=== PATIENT | male | born 1930 | race Caucasian/White ===

== ENCOUNTER 2019-09-28 02:10 | Inpatient (IN) | payer MEDICARE, OTHER ==
[2019-09-28] MEDS ORDERED: Albuterol/Ipratropium 3.0-0.5 MG/3 ML Neb Soln NEB ONE (02:26)
[2019-09-28] MEDS ORDERED: Budesonide 0.5 MG/2 ML Neb Susp NEB ONE (02:26)
--- NOTE | 2019-09-28 02:26 | EDM.PDOC ---
ED HPI GENERAL MEDICAL PROBLEM - General Chief Complaint: Respiratory Problem Stated Complaint: respiratory distress Time Seen by Provider: 09/28/19 02:20 Source of Information: Reports: Patient, EMS, EMS Notes Reviewed (Not available at time of dictation). Denies: Old Records (No [facility] records available) History Limitations: Reports: Other (Severe presbycusis) - History of Present Illness INITIAL COMMENTS - FREE TEXT/NARRATIVE: The patient was brought to the emergency room via ambulance with bean snapper accompaniment for evaluation of a 2 day history of progressive sore throat with increasing nonproductive cough and dyspnea since earlier today. The patient did receive a DuoNeb treatment prior to arrival with O2 sat of 67% on his baseline 4 L/m by nasal cannula prior to transfer to this facility. Saline lock was placed and the patient was transferred with O2 by nonrebreather mass at 15 L/m with O2 sat of 100% at time of arrival to our facility. The patient denies any chest pain/pressure, heart flutter, dizziness, orthostasis, orthopnea, diaphoresis, paresthesias, recent decreased exercise tolerance, or any other anginal-type symptoms. No recent history of abdominal pain, heartburn, nausea, diarrhea, melena, gross hematochezia, or any food intolerance, including fatty foods, etc.. Patient does live in the [facility] no known recent exposure to infection. Onset: Gradual Onset Date: 09/26/19 Duration: Constant, Getting Worse Location: Reports: Other (Sore throat as above). Denies: Head, Face, Neck, Chest, Abdomen, Back, Upper Extremity, Left, Upper Extremity, Right, Radiates to Quality: Reports: Ache Severity: Mild Improves with: Reports: None Worsens with: Reports: None Context: Reports: Other (As above). Denies: Sick Contact, Trauma Associated Symptoms: Reports: Cough, Fever/Chills, Shortness of Breath. Denies : Confusion, Chest Pain, cough w sputum, Diaphoresis, Headaches, Loss of Appetite, Malaise, Nausea/Vomiting, Syncope, Weakness Treatments [place] KNITTER: Reports: Breathing Treatments, IV/IO, Oxygen - Related Data Allergies Allergy/AdvReac Type Severity Reaction Status Date / Time No Known Allergies Allergy Verified 09/28/19 02:17 Home Meds: Home Meds Acetaminophen [Tylenol] 650 mg PO DAILY 09/28/19 [History] Albuterol Sulfate 2.5 mg IH QID PRN 09/28/19 [History] Apixaban [Eliquis] 2.5 mg PO BID 09/28/19 [History] Budesonide/Formoterol Fumarate [Symbicort 160-4.5 Mcg Inhaler] 2 puff INH BID [History] Glucosam/Chond/Collagen/Hyalur [Glucosamine Chondroitin] 1 cap PO BID 09/28/19 [ History] Levothyroxine 25 mcg PO DAILY 09/28/19 [History] Losartan Potassium 50 mg PO DAILY 09/28/19 [History] Omeprazole Magnesium [Prilosec Otc] 20 mg PO DAILY 09/28/19 [History] Potassium Chloride 20 meq PO DAILY 09/28/19 [History] Simvastatin 40 mg PO BEDTIME 09/28/19 [History] Sodium Fluoride [Prevident] 56 gm DT DAILY 09/28/19 [History] Tiotropium Cherry [Spiriva Respimat] 1 cap IH DAILY 09/28/19 [History] Torsemide [Demadex] 20 mg PO BID 09/28/19 [History] Trolamine Salicylate [Arthricream] 1 applic TOP QID 09/28/19 [History] guaiFENesin [Mucinex] 600 mg PO Q12HR 09/28/19 [History] Past Medical History HEENT History: Reports: Hard of Hearing, Impaired Vision, Other (See Below) Other HEENT History: He wears glasses. 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 Cardiovascular History: Reports: Afib, Heart Failure, Heart Murmur, High Cholesterol, Hypertension, Pacemaker Respiratory History: Reports: Bronchitis, Recurrent, COPD, Intubation, Previous , Pneumonia, Recurrent, Other (See Below). 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 Hematologic History: Reports: None - Past Surgical History HEENT Surgical History: Reports: Oral Surgery, Other (See Below) Other HEENT Surgeries/Procedures: Multiple teeth extractions with partial dentures uppers and lowers. Cardiovascular Surgical History: Reports: Pacer - History Comment History Comment: Only limited medical records available from [facility] with patient being a somewhat poor historian secondary to his severe presbycusis, etc. Social & Family History - Family History Family Medical History: Unobtainable - Tobacco Use Smoking Status *Q: Former Smoker Tobacco Use Within Last Twelve Months: Cigarettes Years of Tobacco use: 30 Packs/Tins Daily: 1 Used Tobacco, but Quit: Yes Smoking Cessation Information Provided To Patient: No Second Hand Smoke Exposure: No Second Hand Smoke Education Provided: No - Living Situation & Occupation Living situation: Reports: (2), Extended Care Facility ([facility]) ED ROS GENERAL - Review of Systems Review Of Systems: Comprehensive ROS is negative, except as noted in HPI. ED EXAM, GENERAL - Physical Exam Exam: See Below Exam Limited By: No Limitations General Appearance: Alert, WD/WN, No Apparent Distress, Cachetic Eye Exam: Bilateral Eye: EOMI, Normal Inspection (No nystagmus. Patient wearing glasses), PERRL Ears: Normal External Exam, Normal TMs, Hearing Loss (Moderate to severe bilateral presbycusis with patient not having his hearing aids.) Nose: Normal Mucosa, No Blood, Clear Rhinorrhea Throat/Mouth: Normal Lips, Normal Gums. No: Normal Teeth (Partial dentures uppers and lowers), Normal Oropharynx (Trace erythema in the posterior pharynx with no pinpoint white exudates or peritonsillar abscess.) Head: Atraumatic, Normocephalic. No: Facial Swelling, Facial Tenderness, Sinus Tenderness Neck: Supple, Non-Tender, Full Range of Motion, Carotid Bruit (Mild bilateral carotid bruits versus transmitted heart sounds). No: Lymphadenopathy (L), Lymphadenopathy (R), Thyromegaly Respiratory/Chest: Chest Non-Tender, Decreased Breath Sounds, Rales (Moderate diffuse bilateral), Rhonchi (Occasional bilateral), Wheezing (Occasional bilateral), Accessory Muscle Use (Mild), Retractions (Mild), Prolonged Expiration (Mild). No: Pleural Rub Cardiovascular: Normal Peripheral Pulses, No Gallop, No JVD, No Rub, Tachycardia (Occasional), Systolic Murmur (4/6 DEVIKA of the mitral valve), Irregularly Irregular. No: No Edema (Dependent edema as below), Gallop/S3, Gallop/S4, Friction Rub Peripheral Pulses: 1+: Dorsalis Pedis (L), Dorsalis Pedis (R), 2+: Radial (L), Radial (R) GI/Abdominal: Normal Bowel Sounds, Soft, Non-Tender, No Organomegaly, No Distention, No Abnormal Bruit, No Mass, Pelvis Stable. No: Guarding (Male) Exam: Deferred Rectal (Males) Exam: Deferred Extremities: Normal Range of Motion, Non-Tender, Normal Capillary Refill, Pedal Edema (+1 bilateral pedal/pretibial edema). No: Adama's Sign Neurological: Alert, Oriented, CN II-XII Intact, Normal Cognition, Normal Gait, Normal Reflexes (Negative Babinski's), No Motor/Sensory Deficits Psychiatric: Normal Affect, Normal Mood Skin Exam: Warm, Dry, Intact, Normal Color, No Rash. No: Diaphoretic, Wound/ Incision Lymphatic: No Adenopathy EKG INTERPRETATION EKG Date: 09/28/19 Time: 02:46 Rhythm: A-Fib Rate (Beats/Min): 94 [place]: Normal (Neutral) P-Wave: Variable QRS: Normal (0.09 seconds) ST-T: Normal QT: Prolonged (388/485 ms) DE/PQ Interval: Variable. Extreme poor R-wave progression in the anterior leads. Comparison: NA - No Prior EKG EKG Interpretation Comments: 1. No acute ischemic changes 2. Atrial fibrillation Course - Vital Signs Last Recorded V/S: Last Vital Signs Temp 37.2 C 09/28/19 02:10 Pulse 87 09/28/19 03:07 Resp 23 H 09/28/19 03:07 BP 150/76 H 09/28/19 03:07 Pulse Ox 93 L 09/28/19 03:07 Vital Signs - 24 hr 09/28/19 09/28/19 02:10 03:07 Temperature [ 37.2 C Temporal] Pulse, 108 H 87 Peripheral [ Pulse Oximetry] Respiratory 28 H 23 H Rate Blood Pressure 160/97 H 150/76 H [Right Upper Arm] O2 Sat by Pulse 88 L 93 L Oximetry - Orders/Labs/Meds Orders: Active Orders 24 hr Category Date Time Status Cardiac Monitoring [RC] CONTINUOUS Care 09/28/19 02:26 Active Communication Order [RC] ROUTINE Care 09/28/19 02:26 Active EKG Documentation Completion [RC] ASDIRECTED Care 09/28/19 02:27 Active Oxygen Therapy, ED [RC] CONTINUOUS Care 09/28/19 02:26 Active Peripheral IV Care [RC] . DIRECTED Care 09/28/19 02:27 Active Pulse Oximetry [RC] CONTINUOUS Care 09/28/19 02:26 Active Up With Assistance [RC] ASDIRECTED Care 09/28/19 02:26 Active Nothing Per Oral Diet [DIET] Diet 09/28/19 Breakfast Active Chest 1V Frontal [CR] Stat Exams 09/28/19 02:26 Ordered Chest 2V [CR] Stat Exams 09/28/19 02:26 Ordered CULTURE BLOOD [BC] Stat Lab 09/28/19 02:40 Received CULTURE BLOOD [] Stat Lab 09/28/19 02:40 Received CULTURE SPUTUM + SMEAR [] Urgent Lab 09/28/19 02:26 Ordered CULTURE STREP A CONFIRMATION [] Stat Lab 09/28/19 02:33 Results STREP SCRN A RAPID W CULT CONF [] Stat Lab 09/28/19 02:33 Results Sodium Chloride 0.9% [Saline Flush] Med 09/28/19 02:26 Active 10 ml FLUSH ASDIRECTED PRN Blood Culture x2 Reflex Set [OM.PC] Stat Oth 09/28/19 02:26 Ordered Obtain Past Medical Record [OM.PC] Stat Oth 09/28/19 02:26 Active Peripheral IV Insertion Adult [OM.PC] Stat Oth 09/28/19 02:26 Ordered Resuscitation Status Routine Resus Stat 09/28/19 02:26 Ordered EKG 12 Lead [EK] Stat Ther 09/28/19 02:26 Ordered Medication Orders Sodium Chloride (Saline Flush) 10 ml FLUSH ASDIRECTED PRN PRN Reason: Keep Vein Open Labs: Laboratory Tests 09/28/19 09/28/19 09/28/19 Range/Units 02:44 02:44 02:44 WBC 10.8 H (4.0-10.2) K/uL RBC 3.89 L (4.33-5.41) M/uL Hgb 11.6 L (13.1-16.8) g/dL Hct 37.4 L (39.0-49.0) % MCV 96.1 (84.0-98.0) fL MCH 29.8 (28.2-33.3) pg MCHC 31.0 L (31.7-36.0) g/dL RDW 15.3 H (11.2-14.1) % Plt Count 260 (150-350) K/uL Neut % (Auto) 90.0 H (45.0-80.0) % Lymph % (Auto) 3.0 L (10.0-50.0) % [place] % (Auto) 6.6 (2.0-14.0) % Eos % (Auto) 0.3 (0.0-5.0) % Baso % (Auto) 0.1 (0.0-2.0) % Neut # (Auto) 9.75 H (1.40-7.00) K/uL Lymph # (Auto) 0.32 L (0.50-3.50) K/uL [place] # (Auto) 0.72 (0.00-1.00) K/uL Eos # (Auto) 0.03 (0.00-0.50) K/uL Baso # (Auto) 0.01 (0.00-0.20) K/uL PT 12.9 H (9.5-12.0) SEC INR 1.2 APTT 30.4 (21.0-31.3) SEC D-Dimer, Quantitative (0-400) ng/mL Sodium 139 (136-145) mmol/L Potassium 3.9 (3.5-5.1) mmol/L Chloride 98 (98-107) mmol/L Carbon Dioxide 33.8 H (21.0-32.0) mmol/L BUN 17 (7-18) mg/dL Creatinine 1.03 (0.51-1.17) mg/dL Est Cr Clr Drug Dosing TNP Estimated GFR (MDRD) > 60 mL/min Glucose 167 H (74-106) mg/dL Lactic Acid (0.4-2.0) mmol/L Calcium 9.8 (8.5-10.1) mg/dL Magnesium 1.7 L (1.8-2.4) mg/dL Total Bilirubin 0.7 (0.2-1.0) mg/dL AST 32 (15-37) U/L ALT 39 (12-78) U/L Alkaline Phosphatase 173 H (46-116) IU/L Creatine Kinase 37 (26-308) U/L Creatine Kinase Index 4.6 H (0.0-2.5) % CK-MB (CK-2) 1.70 (0.00-3.60) ng/mL Troponin I 0.045 (0.000-0.056) ng/mL NT-Pro-B Natriuret Pep 32847 H (0-125) pg/mL Total Protein 8.0 (6.4-8.2) g/dL Albumin 3.2 L (3.4-5.0) g/dL TSH, Ultra Sensitive 6.956 H (0.358-3.740) mIU/mL 09/28/19 09/28/19 Range/Units 02:44 02:44 WBC (4.0-10.2) K/uL RBC (4.33-5.41) M/uL Hgb (13.1-16.8) g/dL Hct (39.0-49.0) % MCV (84.0-98.0) fL MCH (28.2-33.3) pg MCHC (31.7-36.0) g/dL RDW (11.2-14.1) % Plt Count (150-350) K/uL Neut % (Auto) (45.0-80.0) % Lymph % (Auto) (10.0-50.0) % [place] % (Auto) (2.0-14.0) % Eos % (Auto) (0.0-5.0) % Baso % (Auto) (0.0-2.0) % Neut # (Auto) (1.40-7.00) K/uL Lymph # (Auto) (0.50-3.50) K/uL [place] # (Auto) (0.00-1.00) K/uL Eos # (Auto) (0.00-0.50) K/uL Baso # (Auto) (0.00-0.20) K/uL PT (9.5-12.0) SEC INR APTT (21.0-31.3) SEC D-Dimer, Quantitative 1330 H (0-400) ng/mL Sodium (136-145) mmol/L Potassium (3.5-5.1) mmol/L Chloride (98-107) mmol/L Carbon Dioxide (21.0-32.0) mmol/L BUN (7-18) mg/dL Creatinine (0.51-1.17) mg/dL Est Cr Clr Drug Dosing Estimated GFR (MDRD) mL/min Glucose (74-106) mg/dL Lactic Acid 1.2 (0.4-2.0) mmol/L Calcium (8.5-10.1) mg/dL Magnesium (1.8-2.4) mg/dL Total Bilirubin (0.2-1.0) mg/dL AST (15-37) U/L ALT (12-78) U/L Alkaline Phosphatase (46-116) IU/L Creatine Kinase (26-308) U/L Creatine Kinase Index (0.0-2.5) % CK-MB (CK-2) (0.00-3.60) ng/mL Troponin I (0.000-0.056) ng/mL NT-Pro-B Natriuret Pep (0-125) pg/mL Total Protein (6.4-8.2) g/dL Albumin (3.4-5.0) g/dL TSH, Ultra Sensitive (0.358-3.740) mIU/mL Blood cultures 2 were collected Microbiology 09/28/19 02:33 Group A Streptococcus Rapid Screen - Final Throat NEGATIVE STREP A SCREEN REFERENCE RANGE: NEGATIVE 09/28/19 02:33 Influenza Type A Antigen Screen - Final Nasal, Left NEGATIVE INFLUENZA A VIRUS AG REFERENCE RANGE: NEGATIVE Influenza Type B Antigen Screen - Final NEGATIVE INFLUENZA B VIRUS AG REFERENCE RANGE: NEGATIVE Meds: Medications Generic Name Dose Route Start Last Admin Trade Name Freq PRN Reason Stop Dose Admin Sodium Chloride 10 ml 09/28/19 02:26 Saline Flush FLUSH ASDIRECTED PRN Keep Vein Open Discontinued Medications Generic Name Dose Route Start Last Admin Trade Name Freq PRN Reason Stop Dose Admin Albuterol/Ipratropium 3 ml 09/28/19 02:26 09/28/19 03:13 Duoneb 3.0-0.5 Mg/3 Ml NEB 09/28/19 02:27 Not Given ONETIME ONE Budesonide 0.5 mg 09/28/19 02:26 09/28/19 02:33 Pulmicort NEB 09/28/19 02:27 0.5 mg ONETIME ONE Administration Ceftriaxone Sodium 1 gm/ 100 mls @ 200 mls/hr 09/28/19 03:24 09/28/19 03:54 Sodium Chloride IV 09/28/19 03:53 200 mls/hr ONETIME ONE Administration - Radiology Interpretation Free Text/Narrative:: Pantograph I Engraver shows atrial fibrillation with occasional tachycardia in the low 100s with average heart rate in the 80s to 90s with occasional multiform PVCs and couplets. Chest x-ray, portable, shows a wedge-shaped inferior lateral right upper lobe consolidation with additional moderate bilateral diffuse pulmonary infiltrates particularly in the left upper lobe. Additional evidence of moderate CHF including mild to moderate left pleural effusion. Mild cardiomegaly with mild to moderate aortic valve calcification. Moderate COPD and pulmonary fibrotic changes with additional status post pacemaker placement. Departure - Departure Time of Disposition: 04:05 Disposition: DC/Tfer to [facility] ([facility]3] Hospital 02 Condition: Fair Clinical Impression: Pneumonia, COPD (chronic obstructive pulmonary disease), Atrial fibrillation, PVCs (premature ventricular contractions), Osteoarthritis, Hypomagnesemia, Anemia, Hypoalbuminemia, Peptic reflux disease, Renal insufficiency, Hyperlipidemia, Hypertension, Need for comfort care, CHF (congestive heart failure), Heart murmur, D-dimer, elevated, Hypothyroidism (acquired) - Discharge Information *PRESCRIPTION DRUG MONITORING PROGRAM REVIEWED*: Not Applicable *COPY OF PRESCRIPTION DRUG MONITORING REPORT IN PATIENT SOPHIA: Not Applicable Sepsis Event Note - Evaluation Sepsis Screening Result: Possible Sepsis Risk - Focused Exam Vital Signs: Vital Signs Temp Pulse Resp BP Pulse Ox 09/28/19 03:07 87 23 H 150/76 H 93 L 09/28/19 02:10 37.2 C 108 H 28 H 160/97 H 88 L Date Exam was Performed: 09/28/19 Time Exam was Performed: 03:58 - Problem List & Annotations (1) CHF (congestive heart failure) SNOMED Code(s): 69517411 Code(s): I50.9 - HEART FAILURE, UNSPECIFIED Status: Chronic Priority: High Current Visit: Yes Annotation/Comment:: Moderate CHF with left pleural effusion by chest x-ray as above. Severely elevated BNP with moderate secondary change in troponin I, which is still normal. EKG and cardiac enzymes are otherwise normal. Note d-dimer elevation as below. Initiate aggressive IV Lasix therapy with caution secondary to his renal insufficiency as below. Initiate standard rule out DE orders as below. Qualifiers: Heart failure type: unspecified Heart failure chronicity: acute on chronic Qualified Code(s): I50.9 - Heart failure, unspecified (2) Pneumonia SNOMED Code(s): 837559576 Code(s): J18.9 - PNEUMONIA, UNSPECIFIED ORGANISM Status: Acute Priority: High Current Visit: Yes Onset Date: 09/28/19 Annotation/Comment:: IV Rocephin therapy initiated in the emergency room with additional IV Zithromax after admission. Blood Cultures 2 were collected. Attempt to obtain a sputum specimen [id number]. Lactic acid was normal with no clinical evidence of sepsis. Qualifiers: Pneumonia type: due to unspecified organism Laterality: bilateral Lung location: unspecified part of lung Qualified Code(s): J18.9 - Pneumonia, unspecified organism (3) D-dimer, elevated SNOMED Code(s): 744252305 Code(s): R79.89 - OTHER SPECIFIED ABNORMAL FINDINGS OF BLOOD CHEMISTRY Status: Acute Priority: High Current Visit: Yes Onset Date: 09/28/19 Annotation/Comment:: No direct clinical evidence of a DVT or PE. CTA of the chest using PE protocol will be conducted shortly after admission. Venous Doppler studies to be conducted on 09/29. Note current Eliquis therapy. (4) Need for comfort care SNOMED Code(s): 529527169, 639573889 Code(s): UBX9987 - Status: Chronic Priority: High Current Visit: Yes Annotation/Comment:: Comfort/palliative care confirmed with the patient and [facility] records. Long-term prognosis is poor. (5) COPD (chronic obstructive pulmonary disease) SNOMED Code(s): 88350994 Code(s): J44.9 - CHRONIC OBSTRUCTIVE PULMONARY DISEASE, UNSPECIFIED Status : Chronic Priority: Medium Current Visit: Yes Annotation/Comment:: O2 dependent COPD, although the patient is only receiving his oxygen on a 3 times a day basis? Patient was successfully titrated down to 4 L/m via nasal cannula in the emergency room with improved O2 sats of 96% prior to admission. Continue aggressive nebulizer treatments with additional Pulmicort nebulizer treatment given in the emergency room. Qualifiers: COPD type: COPD with acute lower respiratory infection Qualified Code(s): J44.0 - Chronic obstructive pulmonary disease with (acute) lower respiratory infection (6) Atrial fibrillation SNOMED Code(s): 20282934 Code(s): I48.91 - UNSPECIFIED ATRIAL FIBRILLATION Status: Chronic Priority: High Current Visit: Yes Annotation/Comment:: Currently treated with Eliquis. Note intermittent tachycardia possibly secondary to recent DuoNeb nebulizer treatment prior to patient's transfer to this facility. Current CHF with no chest pain or anginal type symptoms. Initiate standard rule out DE orders. Note comfort care. Cardiology consultation depending on his clinical course. Qualifiers: Atrial fibrillation type: longstanding persistent Qualified Code(s): I48.11 - Longstanding persistent atrial fibrillation (7) Anemia SNOMED Code(s): 611027001 Code(s): D64.9 - ANEMIA, UNSPECIFIED Status: Acute Priority: Medium Current Visit: Yes Onset Date: 09/28/19 Annotation/Comment:: Iron studies and vitamin B 12 level to be conducted on 09/29. Qualifiers: Anemia type: unspecified type Qualified Code(s): D64.9 - Anemia, unspecified (8) Hyperlipidemia SNOMED Code(s): 72128698 Code(s): E78.5 - HYPERLIPIDEMIA, UNSPECIFIED Status: Chronic Priority: Medium Current Visit: Yes Annotation/Comment:: Currently under therapy. Glycosylated hemoglobin and lipid panel with next set of cardiac enzymes with mildly elevated random blood glucose on admission. Qualifiers: Hyperlipidemia type: unspecified Qualified Code(s): E78.5 - Hyperlipidemia , unspecified (9) Hypertension SNOMED Code(s): 86843517 Code(s): I10 - ESSENTIAL (PRIMARY) HYPERTENSION Status: Chronic Priority : High Current Visit: Yes Annotation/Comment:: Blood pressure somewhat elevated in the emergency room. Continue medication adjustments during this hospitalization. Qualifiers: Hypertension type: essential hypertension Qualified Code(s): I10 - Essential (primary) hypertension (10) Hypoalbuminemia SNOMED Code(s): 055773562 Code(s): E88.09 - OTH DISORDERS OF PLASMA-PROTEIN METABOLISM, NEC Status: Chronic Priority: Medium Current Visit: Yes Annotation/Comment:: Note cachexia likely secondary to his COPD. Initiate high-protein Glucerna supplements left Diet is initiated. (11) Hypomagnesemia SNOMED Code(s): 539002600 Code(s): E83.42 - HYPOMAGNESEMIA Status: Acute Priority: Medium Current Visit: Yes Onset Date: 09/28/19 Annotation/Comment:: Initiate magnesium oxide therapy after admission. (12) Osteoarthritis SNOMED Code(s): 154739315 Code(s): M19.90 - UNSPECIFIED OSTEOARTHRITIS, UNSPECIFIED SITE Status: Chronic Priority: Medium Current Visit: Yes Annotation/Comment:: Stable by history Qualifiers: Osteoarthritis location: multiple joints Osteoarthritis type: primary Qualified Code(s): M15.0 - Primary generalized (osteo)arthritis (13) PVCs (premature ventricular contractions) SNOMED Code(s): 74304813 Code(s): I49.3 - VENTRICULAR PREMATURE DEPOLARIZATION Status: Acute Priority: Medium Current Visit: Yes Onset Date: 09/28/19 Annotation/ Comment:: Nonsymptomatic. Note current pacemaker. (14) Peptic reflux disease SNOMED Code(s): 761298238 Code(s): K21.9 - GASTRO-ESOPHAGEAL REFLUX DISEASE WITHOUT ESOPHAGITIS Status: Chronic Priority: Medium Current Visit: Yes Annotation/Comment:: Stable by history under current Prilosec therapy. (15) Renal insufficiency SNOMED Code(s): 432524440, 032300460 Code(s): N28.9 - DISORDER OF KIDNEY AND URETER, UNSPECIFIED Status: Chronic Priority: Medium Current Visit: Yes Annotation/Comment:: BUN and creatinine were normal with history of stage III renal insufficiency per [facility] records. (16) Heart murmur SNOMED Code(s): 21804653 Code(s): R01.1 - CARDIAC MURMUR, UNSPECIFIED Status: Chronic Priority: High Current Visit: Yes Annotation/Comment:: Severe mitral valve insufficiency based on clinical exam today. Note NO CODE STATUS with echocardiogram not to be performed. (17) Hypothyroidism (acquired) SNOMED Code(s): 099228538 Code(s): E03.9 - HYPOTHYROIDISM, UNSPECIFIED Status: Chronic Priority: Medium Current Visit: Yes Annotation/Comment:: TSH somewhat elevated. Increase Synthroid supplementation especially in light of newly initiated magnesium oxide therapy. TSH should be repeated in about 4 weeks. - Problem List Review Problem List Initiated/Reviewed/Updated: Yes - My Orders Last 24 Hours: My Active Orders 09/28/19 02:26 Cardiac Monitoring [RC] CONTINUOUS Communication Order [RC] ROUTINE Oxygen Therapy, ED [RC] CONTINUOUS Pulse Oximetry [RC] CONTINUOUS Up With Assistance [RC] ASDIRECTED Chest 1V Frontal [CR] Stat Chest 2V [CR] Stat CULTURE SPUTUM + SMEAR [RM] Urgent Sodium Chloride 0.9% [Saline Flush] 10 ml FLUSH ASDIRECTED PRN Blood Culture x2 Reflex Set [OM.PC] Stat Obtain Past Medical Record [OM.PC] Stat Peripheral IV Insertion Adult [OM.PC] Stat Resuscitation Status Routine EKG 12 Lead [EK] Stat 09/28/19 02:27 EKG Documentation Completion [RC] ASDIRECTED Peripheral IV Care [RC] . DIRECTED 09/28/19 02:33 CULTURE STREP A CONFIRMATION [RM] Stat STREP SCRN A RAPID W CULT CONF [RM] Stat 09/28/19 02:40 CULTURE BLOOD [BC] Stat CULTURE BLOOD [BC] Stat 09/28/19 Breakfast Nothing Per Oral Diet [DIET] - Assessment/Plan Admission H&P: Please use this note as an admission H&P Last 24 Hours: My Active Orders 09/28/19 02:26 Cardiac Monitoring [RC] CONTINUOUS Communication Order [RC] ROUTINE Oxygen Therapy, ED [RC] CONTINUOUS Pulse Oximetry [RC] CONTINUOUS Up With Assistance [RC] ASDIRECTED Chest 1V Frontal [CR] Stat Chest 2V [CR] Stat CULTURE SPUTUM + SMEAR [RM] Urgent Sodium Chloride 0.9% [Saline Flush] 10 ml FLUSH ASDIRECTED PRN Blood Culture x2 Reflex Set [OM.PC] Stat Obtain Past Medical Record [OM.PC] Stat Peripheral IV Insertion Adult [OM.PC] Stat Resuscitation Status Routine EKG 12 Lead [EK] Stat 09/28/19 02:27 EKG Documentation Completion [RC] ASDIRECTED Peripheral IV Care [RC] . DIRECTED 09/28/19 02:33 CULTURE STREP A CONFIRMATION [RM] Stat STREP SCRN A RAPID W CULT CONF [RM] Stat 09/28/19 02:40 CULTURE BLOOD [BC] Stat CULTURE BLOOD [BC] Stat 09/28/19 Breakfast Nothing Per Oral Diet [DIET] Assessment:: As above Plan: As above. Extensive precautions were given to the patient, who is in agreement with the treatment plan. The patient will require about 3-4 days of inpatient/ acute care secondary to multiple health problems as above. Long-term prognosis is poor.
[2019-09-28 03:18] LABS: CHLORIDE,CL 98 mmol/L (98-107); SODIUM,NA 139 mmol/L (136-145)
[2019-09-28] MEDS ORDERED: cefTRIAXone 1 GM in Sodium Chloride 0.9% 100 ML IV ONE (03:24)
[2019-09-28] MEDS: Sodium Chloride 0.9% 10 ML Syringe FLUSH PRN ×4 (04:12→17:03)
[2019-09-28] MEDS: Levofloxacin/Dextrose 5%-Water 500 MG in Premix Bag 1 BAG IV SCH (06:01)
[2019-09-28] MEDS: Sodium Chloride 0.9% 10 ML Syringe FLUSH SCH ×2 (06:02→17:04)
[2019-09-28] MEDS: Furosemide 40 MG/4 ML VIAL IVPUSH SCH ×3 (06:02→20:06)
[2019-09-28] MEDS: Apixaban 2.5 MG Tab PO SCH ×2 (08:01→17:04)
[2019-09-28] MEDS: Potassium Chloride 20 MEQ Tab.ER PO SCH ×3 (08:01→17:04)
[2019-09-28] MEDS: Dextromethorphan/guaiFENesin 600-30 MG Tab.ER PO SCH ×2 (08:01→17:04)
[2019-09-28] MEDS: Losartan 50 MG Tab PO SCH (08:02)
[2019-09-28] MEDS: Albuterol/Ipratropium 3.0-0.5 MG/3 ML Neb Soln NEB SCH ×3 (08:03→20:06)
[2019-09-28] MEDS: Acetaminophen 325 MG Tab PO SCH (08:03)
[2019-09-28] MEDS: Tiotropium Inhaler 18 MCG Inhalation Powder Cap Kit of 5 INH SCH (08:03)
[2019-09-28] MEDS: Trolamine Salicylate/Aloe Vera 10% Crm 85 GM Tube TOP SCH ×4 (08:05→20:08)
[2019-09-28] MEDS: Levothyroxine 50 MCG Tab PO SCH (08:08)
[2019-09-28] MEDS: Omeprazole 20 MG Cap.CR PO SCH (08:08)
[2019-09-28] MEDS ORDERED: Iopamidol 755 Mg/ML 100 ML Bottle IVPUSH ONE (08:42)
[2019-09-28 10:08] LABS: HEMOGLOBIN A1C 6.3 % (4.3-5.7)
[2019-09-28] MEDS: Nitroglycerin 2% Oint 1 GM UD Packet TOP SCH ×3 (11:03→22:43)
[2019-09-28] MEDS: Albuterol/Ipratropium 3.0-0.5 MG/3 ML Neb Soln NEB PRN (11:08)
[2019-09-28] MEDS: cefTRIAXone 1 GM in Sodium Chloride 0.9% 100 ML IV SCH (17:02)
[2019-09-28] MEDS: Magnesium Oxide 400 MG Tab PO SCH (17:04)
[2019-09-28] MEDS: Budesonide 0.5 MG/2 ML Neb Susp NEB SCH (20:06)
[2019-09-28] MEDS: Simvastatin 20 MG Tab PO SCH (20:06)
[2019-09-29] MEDS: Albuterol/Ipratropium 3.0-0.5 MG/3 ML Neb Soln NEB SCH ×4 (01:49→20:23)
[2019-09-29] MEDS: Levofloxacin/Dextrose 5%-Water 500 MG in Premix Bag 1 BAG IV SCH (04:57)
[2019-09-29] MEDS: cefTRIAXone 1 GM in Sodium Chloride 0.9% 100 ML IV SCH ×2 (04:58→15:52)
[2019-09-29] MEDS: Nitroglycerin 2% Oint 1 GM UD Packet TOP SCH ×3 (04:58→15:53)
[2019-09-29] MEDS: Furosemide 40 MG/4 ML VIAL IVPUSH SCH ×2 (04:58→12:31)
[2019-09-29] MEDS: Sodium Chloride 0.9% 10 ML Syringe FLUSH SCH ×3 (04:59→20:20)
[2019-09-29] MEDS: Albuterol 0.083% 2.5 MG/3 ML Neb Soln NEB PRN ×4 (06:39→23:05)
[2019-09-29] MEDS: Dextromethorphan/guaiFENesin 600-30 MG Tab.ER PO SCH ×2 (08:02→17:35)
[2019-09-29] MEDS: Potassium Chloride 20 MEQ Tab.ER PO SCH ×3 (08:02→17:34)
[2019-09-29] MEDS: Apixaban 2.5 MG Tab PO SCH ×2 (08:03→17:35)
[2019-09-29] MEDS: Omeprazole 20 MG Cap.CR PO SCH (08:03)
[2019-09-29] MEDS: Levothyroxine 50 MCG Tab PO SCH (08:03)
[2019-09-29] MEDS: Losartan 50 MG Tab PO SCH (08:03)
[2019-09-29] MEDS: Acetaminophen 325 MG Tab PO SCH (08:04)
[2019-09-29] MEDS: Trolamine Salicylate/Aloe Vera 10% Crm 85 GM Tube TOP SCH ×5 (08:08→20:20)
[2019-09-29] MEDS: Tiotropium Inhaler 18 MCG Inhalation Powder Cap Kit of 5 INH SCH (08:08)
[2019-09-29] MEDS: Budesonide 0.5 MG/2 ML Neb Susp NEB SCH ×2 (08:09→20:19)
[2019-09-29 08:45] LABS: CHLORIDE,CL 97 mmol/L (98-107); SODIUM,NA 138 mmol/L (136-145)
[2019-09-29] MEDS: Magnesium Oxide 400 MG Tab PO SCH (17:35)
--- NOTE | 2019-09-29 18:29 | PCM.PN ---
- General Info Date of Service: 09/29/19 Admission Dx/Problem (Free Text): Pneumonia Subjective Update: Feels better - Review of Systems Pulmonary: Reports: Shortness of Breath, Cough Cardiovascular: Reports: No Symptoms Gastrointestinal: Reports: No Symptoms Musculoskeletal: Reports: No Symptoms - Patient Data Vitals - Most Recent: Last Vital Signs Temp 37.1 C 09/29/19 16:00 Pulse 65 09/29/19 16:00 Resp 19 09/29/19 16:00 BP 128/62 09/29/19 16:00 Pulse Ox 92 L 09/29/19 16:00 Weight - Most Recent: 60.419 kg I&O - Last 24 Hours: Intake & Output 09/29/19 09/29/19 09/29/19 02:59 10:59 18:59 Intake Total 150 1110 700 Output Total 550 2100 900 Balance -400 -990 -200 Lab Results Last 24 Hours: Laboratory Results - last 24 hr 09/29/19 09/29/19 09/29/19 Range/Units 07:49 07:49 07:49 WBC 8.0 (4.0-10.2) K/uL RBC 3.69 L (4.33-5.41) M/uL Hgb 11.1 L (13.1-16.8) g/dL Hct 35.7 L (39.0-49.0) % MCV 96.7 (84.0-98.0) fL MCH 30.1 (28.2-33.3) pg MCHC 31.1 L (31.7-36.0) g/dL RDW 15.3 H (11.2-14.1) % Plt Count 256 (150-350) K/uL Neut % (Auto) 80.5 H (45.0-80.0) % Lymph % (Auto) 6.7 L (10.0-50.0) % Cassia % (Auto) 10.2 (2.0-14.0) % Eos % (Auto) 2.4 (0.0-5.0) % Baso % (Auto) 0.2 (0.0-2.0) % Neut # (Auto) 6.47 (1.40-7.00) K/uL Lymph # (Auto) 0.54 (0.50-3.50) K/uL Cassia # (Auto) 0.82 (0.00-1.00) K/uL Eos # (Auto) 0.19 (0.00-0.50) K/uL Baso # (Auto) 0.02 (0.00-0.20) K/uL D-Dimer, Quantitative 1420 H (0-400) ng/mL Sodium 138 (136-145) mmol/L Potassium 3.9 (3.5-5.1) mmol/L Chloride 97 L (98-107) mmol/L Carbon Dioxide 36.9 H (21.0-32.0) mmol/L BUN 17 (7-18) mg/dL Creatinine 1.07 (0.51-1.17) mg/dL Est Cr Clr Drug Dosing 40.78 mL/min Estimated GFR (MDRD) > 60 mL/min Glucose 100 (74-106) mg/dL Calcium 9.4 (8.5-10.1) mg/dL Iron (50-175) ug/dL TIBC (250-450) ug/dL % Saturation Ferritin (8-388) ng/mL Total Bilirubin 0.4 (0.2-1.0) mg/dL AST 19 (15-37) U/L ALT 30 (12-78) U/L Alkaline Phosphatase 143 H (46-116) IU/L Creatine Kinase 38 (26-308) U/L Creatine Kinase Index 6.6 H (0.0-2.5) % CK-MB (CK-2) 2.50 (0.00-3.60) ng/mL Troponin I 0.055 (0.000-0.056) ng/mL NT-Pro-B Natriuret Pep 56764 H (0-125) pg/mL Total Protein 7.6 (6.4-8.2) g/dL Albumin 2.9 L (3.4-5.0) g/dL Vitamin B12 475 (193-986) pg/mL 09/29/19 Range/Units 07:49 WBC (4.0-10.2) K/uL RBC (4.33-5.41) M/uL Hgb (13.1-16.8) g/dL Hct (39.0-49.0) % MCV (84.0-98.0) fL MCH (28.2-33.3) pg MCHC (31.7-36.0) g/dL RDW (11.2-14.1) % Plt Count (150-350) K/uL Neut % (Auto) (45.0-80.0) % Lymph % (Auto) (10.0-50.0) % Cassia % (Auto) (2.0-14.0) % Eos % (Auto) (0.0-5.0) % Baso % (Auto) (0.0-2.0) % Neut # (Auto) (1.40-7.00) K/uL Lymph # (Auto) (0.50-3.50) K/uL Cassia # (Auto) (0.00-1.00) K/uL Eos # (Auto) (0.00-0.50) K/uL Baso # (Auto) (0.00-0.20) K/uL D-Dimer, Quantitative (0-400) ng/mL Sodium (136-145) mmol/L Potassium (3.5-5.1) mmol/L Chloride (98-107) mmol/L Carbon Dioxide (21.0-32.0) mmol/L BUN (7-18) mg/dL Creatinine (0.51-1.17) mg/dL Est Cr Clr Drug Dosing mL/min Estimated GFR (MDRD) mL/min Glucose (74-106) mg/dL Calcium (8.5-10.1) mg/dL Iron 33 L (50-175) ug/dL TIBC 350 (250-450) ug/dL % Saturation [id number] Ferritin 82 (8-388) ng/mL Total Bilirubin (0.2-1.0) mg/dL AST (15-37) U/L ALT (12-78) U/L Alkaline Phosphatase (46-116) IU/L Creatine Kinase (26-308) U/L Creatine Kinase Index (0.0-2.5) % CK-MB (CK-2) (0.00-3.60) ng/mL Troponin I (0.000-0.056) ng/mL NT-Pro-B Natriuret Pep (0-125) pg/mL Total Protein (6.4-8.2) g/dL Albumin (3.4-5.0) g/dL Vitamin B12 (193-986) pg/mL Stone Results Last 24 Hours: Microbiology 09/28/19 06:10 Gram Stain - Final Sputum - Expectorated Sputum Culture - Preliminary Yeast Isolated 09/28/19 02:33 Quick Strep Confirmation Culture - Final Throat NO GROUP A STREP ISOLATED REFERENCE RANGE: NEGATIVE Group A Streptococcus Rapid Screen - Final NEGATIVE STREP A SCREEN REFERENCE RANGE: NEGATIVE 09/28/19 02:40 Aerobic Blood Culture - Preliminary Blood - Venous - Lab Draw NO GROWTH AFTER 1 DAY Anaerobic Blood Culture - Preliminary NO GROWTH AFTER 1 DAY 09/28/19 02:40 Aerobic Blood Culture - Preliminary Blood - Venous NO GROWTH AFTER 1 DAY Anaerobic Blood Culture - Preliminary NO GROWTH AFTER 1 DAY Med Orders - Current: Current Medications Acetaminophen (Tylenol) 650 mg PO DAILY [facility] Last Admin: 09/29/19 08:04 Dose: 650 mg Acetaminophen (Tylenol) 650 mg PO Q4H PRN PRN Reason: Pain/Fever Albuterol (Proventil Neb Soln) 2.5 mg NEB Q2H PRN PRN Reason: Dyspnea Last Admin: 09/29/19 14:56 Dose: 2.5 mg Albuterol/Ipratropium (Duoneb 3.0-0.5 Mg/3 Ml) 3 ml NEB Q4HRRT PRN PRN Reason: Dyspnea Last Admin: 09/28/19 11:08 Dose: 3 ml Albuterol/Ipratropium (Duoneb 3.0-0.5 Mg/3 Ml) 3 ml NEB Q6HRRT [facility] Last Admin: 09/29/19 14:13 Dose: 3 ml Apixaban (Eliquis) 2.5 mg PO BID [facility] Last Admin: 09/29/19 17:35 Dose: 2.5 mg Budesonide (Pulmicort) 0.5 mg NEB BIDRT [facility] Last Admin: 09/29/19 08:09 Dose: 0.5 mg Furosemide (Lasix) 20 mg IVPUSH Q12HR [facility] Guaifenesin/Dextromethorphan (Mucinex Dm Er 600-30 Mg) 1 tab PO BID [facility] Last Admin: 09/29/19 17:35 Dose: 1 tab Ceftriaxone Sodium 1 gm/ (Sodium Chloride) 100 mls @ 200 mls/hr IV Q12H [facility] Last Admin: 09/29/19 15:52 Dose: 200 mls/hr Levofloxacin/Dextrose 500 mg/ (Premix) 100 mls @ 100 mls/hr IV Q24H [facility] Last Admin: 09/29/19 04:57 Dose: 100 mls/hr Levothyroxine Sodium (Synthroid) 50 mcg PO ACBREAKFAST [facility] Last Admin: 09/29/19 08:03 Dose: 50 mcg Losartan Potassium (Cozaar) 50 mg PO DAILY [facility] Last Admin: 09/29/19 08:03 Dose: 50 mg Magnesium Oxide (Magnesium Oxide) 400 mg PO QPM [facility] Last Admin: 09/29/19 17:35 Dose: 400 mg Nitroglycerin (Nitro-Bid 2%) 0.5 gm TOP Q6H [facility] Last Admin: 09/29/19 15:53 Dose: 0.5 gm Omeprazole (Omeprazole) 20 mg PO ACBREAKFAST [facility] Last Admin: 09/29/19 08:03 Dose: 20 mg Potassium Chloride (Klor-Con M20) 20 meq PO TIDMEALS [facility] Last Admin: 09/29/19 17:34 Dose: 20 meq Simvastatin (Zocor) 40 mg PO BEDTIME [facility] Last Admin: 09/28/19 20:06 Dose: 40 mg Sodium Chloride (Saline Flush) 10 ml FLUSH ASDIRECTED PRN PRN Reason: Keep Vein Open Last Admin: 09/28/19 17:03 Dose: 10 ml Sodium Chloride (Saline Flush) 10 ml FLUSH Q12H [facility] Last Admin: 09/29/19 15:56 Dose: 10 ml Temazepam (Restoril) 15 mg PO BEDTIME PRN PRN Reason: Insomnia Tiotropium [place] (Spiriva Handihaler) 18 mcg INH DAILY [facility] Last Admin: 09/29/19 08:08 Dose: 1 inhalation Trolamine Salicylate (Aspercreme 10%) 1 gm TOP QID [facility] Last Admin: 09/29/19 18:14 Dose: 1 applic Discontinued Medications Albuterol/Ipratropium (Duoneb 3.0-0.5 Mg/3 Ml) 3 ml NEB ONETIME ONE Stop: 09/28/19 02:27 Last Admin: 09/28/19 03:13 Dose: Not Given Budesonide (Pulmicort) 0.5 mg NEB ONETIME ONE Stop: 09/28/19 02:27 Last Admin: 09/28/19 02:33 Dose: 0.5 mg Furosemide (Lasix) 40 mg IVPUSH Q8H [facility] Last Admin: 09/29/19 12:31 Dose: 40 mg Ceftriaxone Sodium 1 gm/ (Sodium Chloride) 100 mls @ 200 mls/hr IV ONETIME ONE Stop: 09/28/19 03:53 Last Admin: 09/28/19 03:54 Dose: 200 mls/hr Iopamidol (Isovue-370 (76%)) 100 ml IVPUSH ONETIME ONE Stop: 09/28/19 08:43 Last Admin: 09/28/19 09:30 Dose: 100 ml - Exam Quality Assessment: Supplemental Oxygen General: Alert Lungs: Crackles Cardiovascular: Regular Rate GI/Abdominal Exam: Non-Tender Extremities: Pedal Edema Sepsis Event Note - Evaluation Sepsis Screening Result: No Definite Risk - Focused Exam Vital Signs: Vital Signs Temp Pulse Resp BP BP Pulse Ox 09/29/19 16:00 37.1 C 65 19 128/62 92 L 09/29/19 12:00 36.6 C 70 21 H 142/58 H 90 L 09/29/19 08:03 168/78 H 09/29/19 07:56 36.3 C 95 26 H 168/78 H 89 L Date Exam was Performed: 09/29/19 Time Exam was Performed: 18:27 - Problem List Review Problem List Initiated/Reviewed/Updated: Yes - My Orders Last 24 Hours: My Active Orders 09/29/19 20:00 Furosemide [Lasix] 20 mg IVPUSH Q12HR 09/29/19 Lunch Regular Diet [DIET] 09/30/19 05:11 BASIC METABOLIC PANEL,BMP [CHEM] Routine CBC WITH AUTO DIFF [HEME] Routine - Assessment Assessment:: Pneumonia - Plan Plan:: Continue antibiotics
[2019-09-29] MEDS: Simvastatin 20 MG Tab PO SCH (20:19)
[2019-09-29] MEDS: Furosemide 20 MG/2 ML VIAL IVPUSH SCH (20:20)
[2019-09-29] MEDS: Acetaminophen 325 MG Tab PO PRN (23:05)
[2019-09-29] MEDS: Temazepam 15 MG Cap PO PRN (23:06)
[2019-09-30] MEDS: cefTRIAXone 1 GM in Sodium Chloride 0.9% 100 ML IV SCH ×2 (05:04→14:59)
[2019-09-30] MEDS: Albuterol/Ipratropium 3.0-0.5 MG/3 ML Neb Soln NEB SCH ×4 (05:04→19:42)
[2019-09-30] MEDS: Levofloxacin/Dextrose 5%-Water 500 MG in Premix Bag 1 BAG IV SCH (05:04)
[2019-09-30] MEDS: Sodium Chloride 0.9% 10 ML Syringe FLUSH SCH ×3 (05:05→15:22)
[2019-09-30 07:36] LABS: CHLORIDE,CL 97 mmol/L (98-107); SODIUM,NA 138 mmol/L (136-145)
[2019-09-30] MEDS: Tiotropium Inhaler 18 MCG Inhalation Powder Cap Kit of 5 INH SCH (07:36)
[2019-09-30] MEDS: Trolamine Salicylate/Aloe Vera 10% Crm 85 GM Tube TOP SCH ×4 (07:38→19:41)
[2019-09-30] MEDS: Budesonide 0.5 MG/2 ML Neb Susp NEB SCH ×2 (07:38→19:42)
[2019-09-30] MEDS: Omeprazole 20 MG Cap.CR PO SCH (07:39)
[2019-09-30] MEDS: Furosemide 20 MG/2 ML VIAL IVPUSH SCH ×2 (07:39→19:43)
[2019-09-30] MEDS: Potassium Chloride 20 MEQ Tab.ER PO SCH ×3 (07:39→18:37)
[2019-09-30] MEDS: Dextromethorphan/guaiFENesin 600-30 MG Tab.ER PO SCH ×2 (07:39→18:38)
[2019-09-30] MEDS: Losartan 50 MG Tab PO SCH (07:40)
[2019-09-30] MEDS: Levothyroxine 50 MCG Tab PO SCH (07:40)
[2019-09-30] MEDS: Apixaban 2.5 MG Tab PO SCH ×2 (07:40→18:38)
[2019-09-30] MEDS: Sodium Chloride 0.9% 10 ML Syringe FLUSH PRN ×2 (07:41→14:58)
[2019-09-30] MEDS: Acetaminophen 325 MG Tab PO SCH (07:41)
[2019-09-30] MEDS: traMADol 50 MG Tab PO PRN (11:54)
--- NOTE | 2019-09-30 15:55 | PCM.PN ---
- General Info Date of Service: 09/30/19 Admission Dx/Problem (Free Text): SOB and elevated troponin Subjective Update: Feels less SOB No chest pain - Review of Systems Pulmonary: Reports: Shortness of Breath Cardiovascular: Reports: No Symptoms Gastrointestinal: Reports: No Symptoms Musculoskeletal: Reports: Joint Pain (right knee pain) - Patient Data Vitals - Most Recent: Last Vital Signs Temp 36.5 C 09/30/19 08:00 Pulse 78 09/30/19 08:00 Resp 25 H 09/30/19 08:00 BP 162/76 H 09/30/19 08:00 Pulse Ox 88 L 09/30/19 08:00 Weight - Most Recent: 60.419 kg I&O - Last 24 Hours: Intake & Output 09/30/19 09/30/19 09/30/19 02:59 10:59 18:59 Intake Total 770 120 Output Total 500 450 Balance 270 -330 Lab Results Last 24 Hours: Laboratory Results - last 24 hr 09/30/19 09/30/19 Range/Units 07:03 07:03 WBC 7.4 (4.0-10.2) K/uL RBC 3.39 L (4.33-5.41) M/uL Hgb 10.3 L (13.1-16.8) g/dL Hct 32.9 L (39.0-49.0) % MCV 97.1 (84.0-98.0) fL MCH 30.4 (28.2-33.3) pg MCHC 31.3 L (31.7-36.0) g/dL RDW 15.3 H (11.2-14.1) % Plt Count 236 (150-350) K/uL Neut % (Auto) 75.0 (45.0-80.0) % Lymph % (Auto) 6.6 L (10.0-50.0) % Power % (Auto) 15.1 H (2.0-14.0) % Eos % (Auto) 3.0 (0.0-5.0) % Baso % (Auto) 0.3 (0.0-2.0) % Neut # (Auto) 5.59 (1.40-7.00) K/uL Lymph # (Auto) 0.49 L (0.50-3.50) K/uL Power # (Auto) 1.12 H (0.00-1.00) K/uL Eos # (Auto) 0.22 (0.00-0.50) K/uL Baso # (Auto) 0.02 (0.00-0.20) K/uL Sodium 138 (136-145) mmol/L Potassium 3.9 (3.5-5.1) mmol/L Chloride 97 L (98-107) mmol/L Carbon Dioxide 36.3 H (21.0-32.0) mmol/L BUN 16 (7-18) mg/dL Creatinine 1.04 (0.51-1.17) mg/dL Est Cr Clr Drug Dosing 41.96 mL/min Estimated GFR (MDRD) > 60 mL/min Glucose 96 (74-106) mg/dL Calcium 8.9 (8.5-10.1) mg/dL Stone Results Last 24 Hours: Microbiology 09/28/19 07:40 MRSA (PCR) - Final Nasal, Unspecified 09/28/19 07:40 Helicobacter pylori Antigen - Final Stool / Feces 09/28/19 06:10 Gram Stain - Final Sputum - Expectorated Sputum Culture - Final Yeast Isolated Normal Oral Pharyngeal Oliva 09/28/19 02:40 Aerobic Blood Culture - Preliminary Blood - Venous - Lab Draw NO GROWTH AFTER 2 DAYS Anaerobic Blood Culture - Preliminary NO GROWTH AFTER 2 DAYS 09/28/19 02:40 Aerobic Blood Culture - Preliminary Blood - Venous NO GROWTH AFTER 2 DAYS Anaerobic Blood Culture - Preliminary NO GROWTH AFTER 2 DAYS 09/28/19 02:33 Quick Strep Confirmation Culture - Final Throat NO GROUP A STREP ISOLATED REFERENCE RANGE: NEGATIVE Group A Streptococcus Rapid Screen - Final NEGATIVE STREP A SCREEN REFERENCE RANGE: NEGATIVE Med Orders - Current: Current Medications Acetaminophen (Tylenol) 650 mg PO DAILY [facility] Last Admin: 09/30/19 07:41 Dose: 650 mg Acetaminophen (Tylenol) 650 mg PO Q4H PRN PRN Reason: Pain/Fever Last Admin: 09/29/19 23:05 Dose: 650 mg Albuterol (Proventil Neb Soln) 2.5 mg NEB Q2H PRN PRN Reason: Dyspnea Last Admin: 09/29/19 23:05 Dose: 2.5 mg Albuterol/Ipratropium (Duoneb 3.0-0.5 Mg/3 Ml) 3 ml NEB Q4HRRT PRN PRN Reason: Dyspnea Last Admin: 09/28/19 11:08 Dose: 3 ml Albuterol/Ipratropium (Duoneb 3.0-0.5 Mg/3 Ml) 3 ml NEB Q6HRRT [facility] Last Admin: 09/30/19 14:58 Dose: 3 ml Apixaban (Eliquis) 2.5 mg PO BID [facility] Last Admin: 09/30/19 07:40 Dose: 2.5 mg Budesonide (Pulmicort) 0.5 mg NEB BIDRT [facility] Last Admin: 09/30/19 07:38 Dose: 0.5 mg Furosemide (Lasix) 20 mg IVPUSH Q12HR [facility] Last Admin: 09/30/19 07:39 Dose: 20 mg Guaifenesin/Dextromethorphan (Mucinex Dm Er 600-30 Mg) 1 tab PO BID [facility] Last Admin: 09/30/19 07:39 Dose: 1 tab Ceftriaxone Sodium 1 gm/ (Sodium Chloride) 100 mls @ 200 mls/hr IV Q12H [facility] Last Admin: 09/30/19 14:59 Dose: 200 mls/hr Levofloxacin/Dextrose 500 mg/ (Premix) 100 mls @ 100 mls/hr IV Q24H [facility] Last Admin: 09/30/19 05:04 Dose: 100 mls/hr Levothyroxine Sodium (Synthroid) 50 mcg PO ACBREAKFAST [facility] Last Admin: 09/30/19 07:40 Dose: 50 mcg Losartan Potassium (Cozaar) 50 mg PO DAILY [facility] Last Admin: 09/30/19 07:40 Dose: 50 mg Magnesium Oxide (Magnesium Oxide) 400 mg PO QPM [facility] Last Admin: 09/29/19 17:35 Dose: 400 mg Omeprazole (Omeprazole) 20 mg PO ACBREAKFAST [facility] Last Admin: 09/30/19 07:39 Dose: 20 mg Potassium Chloride (Klor-Con M20) 20 meq PO TIDMEALS [facility] Last Admin: 09/30/19 11:55 Dose: 20 meq Simvastatin (Zocor) 40 mg PO BEDTIME [facility] Last Admin: 09/29/19 20:19 Dose: 40 mg Sodium Chloride (Saline Flush) 10 ml FLUSH ASDIRECTED PRN PRN Reason: Keep Vein Open Last Admin: 09/30/19 14:58 Dose: 10 ml Sodium Chloride (Saline Flush) 10 ml FLUSH Q12H [facility] Last Admin: 09/30/19 15:22 Dose: Not Given Temazepam (Restoril) 15 mg PO BEDTIME PRN PRN Reason: Insomnia Last Admin: 09/29/19 23:06 Dose: 15 mg Tiotropium [place] (Spiriva Handihaler) 18 mcg INH DAILY [facility] Last Admin: 09/30/19 07:36 Dose: 1 inhalation Tramadol HCl (Ultram) 50 mg PO Q6H PRN PRN Reason: pain Last Admin: 09/30/19 11:54 Dose: 50 mg Trolamine Salicylate (Aspercreme 10%) 1 gm TOP QID [facility] Last Admin: 09/30/19 15:00 Dose: 1 applic Discontinued Medications Albuterol/Ipratropium (Duoneb 3.0-0.5 Mg/3 Ml) 3 ml NEB ONETIME ONE Stop: 09/28/19 02:27 Last Admin: 09/28/19 03:13 Dose: Not Given Budesonide (Pulmicort) 0.5 mg NEB ONETIME ONE Stop: 09/28/19 02:27 Last Admin: 09/28/19 02:33 Dose: 0.5 mg Furosemide (Lasix) 40 mg IVPUSH Q8H [facility] Last Admin: 09/29/19 12:31 Dose: 40 mg Ceftriaxone Sodium 1 gm/ (Sodium Chloride) 100 mls @ 200 mls/hr IV ONETIME ONE Stop: 09/28/19 03:53 Last Admin: 09/28/19 03:54 Dose: 200 mls/hr Iopamidol (Isovue-370 (76%)) 100 ml IVPUSH ONETIME ONE Stop: 09/28/19 08:43 Last Admin: 09/28/19 09:30 Dose: 100 ml Nitroglycerin (Nitro-Bid 2%) 0.5 gm TOP Q6H [facility] Last Admin: 09/29/19 15:53 Dose: 0.5 gm - Exam Quality Assessment: Supplemental Oxygen General: Alert Neck: Supple Lungs: Decreased Breath Sounds Cardiovascular: Regular Rate GI/Abdominal Exam: Non-Tender Extremities: Limited Range of Motion, Other (Degenerative changes) Sepsis Event Note - Evaluation Sepsis Screening Result: No Definite Risk - Focused Exam Vital Signs: Vital Signs Temp Pulse Resp BP BP Pulse Ox 09/30/19 08:00 36.5 C 78 25 H 162/76 H 88 L 09/30/19 07:40 162/76 H Date Exam was Performed: 09/30/19 Time Exam was Performed: 15:52 - Problem List Review Problem List Initiated/Reviewed/Updated: Yes - My Orders Last 24 Hours: My Active Orders 09/29/19 20:00 Furosemide [Lasix] 20 mg IVPUSH Q12HR 09/30/19 12:00 traMADol [Ultram] 50 mg PO Q6H PRN 10/01/19 05:11 BMP [BASIC METABOLIC PANEL,BMP] [CHEM] Routine CBC WITH AUTO DIFF [HEME] Routine - Assessment Assessment:: Pneumonia - Plan Plan:: Continue antibiotics
[2019-09-30] MEDS: Magnesium Oxide 400 MG Tab PO SCH (18:38)
[2019-09-30] MEDS: Simvastatin 20 MG Tab PO SCH (19:42)
[2019-10-01] MEDS: Temazepam 15 MG Cap PO PRN ×3 (00:40→20:06)
[2019-10-01] MEDS: Albuterol/Ipratropium 3.0-0.5 MG/3 ML Neb Soln NEB PRN (00:41)
[2019-10-01] MEDS: traMADol 50 MG Tab PO PRN (02:23)
[2019-10-01] MEDS: Albuterol/Ipratropium 3.0-0.5 MG/3 ML Neb Soln NEB SCH ×4 (03:31→20:10)
[2019-10-01] MEDS: cefTRIAXone 1 GM in Sodium Chloride 0.9% 100 ML IV SCH ×2 (05:02→15:07)
[2019-10-01] MEDS: Sodium Chloride 0.9% 10 ML Syringe FLUSH SCH ×3 (05:03→15:47)
[2019-10-01] MEDS: Levofloxacin/Dextrose 5%-Water 500 MG in Premix Bag 1 BAG IV SCH (05:54)
[2019-10-01] MEDS: Acetaminophen 325 MG Tab PO SCH (07:48)
[2019-10-01] MEDS: Potassium Chloride 20 MEQ Tab.ER PO SCH ×2 (07:48→18:11)
[2019-10-01] MEDS: Dextromethorphan/guaiFENesin 600-30 MG Tab.ER PO SCH ×2 (07:48→18:11)
[2019-10-01] MEDS: Losartan 50 MG Tab PO SCH (07:48)
[2019-10-01] MEDS: Apixaban 2.5 MG Tab PO SCH ×2 (07:49→18:12)
[2019-10-01] MEDS: Omeprazole 20 MG Cap.CR PO SCH (07:49)
[2019-10-01] MEDS: Sodium Chloride 0.9% 10 ML Syringe FLUSH PRN ×3 (07:49→20:07)
[2019-10-01] MEDS: Furosemide 20 MG/2 ML VIAL IVPUSH SCH ×2 (07:49→20:06)
[2019-10-01] MEDS: Budesonide 0.5 MG/2 ML Neb Susp NEB SCH ×2 (07:49→20:02)
[2019-10-01] MEDS: Levothyroxine 50 MCG Tab PO SCH (07:49)
[2019-10-01] MEDS: Trolamine Salicylate/Aloe Vera 10% Crm 85 GM Tube TOP SCH ×4 (07:50→20:12)
[2019-10-01] MEDS: Tiotropium Inhaler 18 MCG Inhalation Powder Cap Kit of 5 INH SCH (07:50)
[2019-10-01 08:05] LABS: CHLORIDE,CL 98 mmol/L (98-107); SODIUM,NA 136 mmol/L (136-145)
--- NOTE | 2019-10-01 10:18 | PCM.PN ---
- General Info Date of Service: 10/01/19 Admission Dx/Problem (Free Text): 1. CHF 2. COPD exacerbation 3. Pneumonia Subjective Update: He is a poor historian. Functional Status: Reports: Pain Controlled, Tolerating Diet, Ambulating, Urinating, Incentive Spirometry. Denies: New Symptoms Pain Score: 0 - Review of Systems General: Reports: Fever (Low-grade), Weakness (Slowly improving chronic), Appetite (Somewhat decreased). Denies: Fatigue, Malaise, Chills, Night Sweats HEENT: Denies: Ear Pain, Eye Pain, Headaches, Post Nasal Drip, Sinus Congestion , Sore Throat, Rhinitis, Visual Changes Pulmonary: Reports: Shortness of Breath (Improved chronic), Cough. Denies: Sputum, Hemoptysis, Wheezing Cardiovascular: Denies: Chest Pain, Palpitations, Dyspnea on Exertion, Orthopnea , Edema (Resolved), Lightheadedness Gastrointestinal: Reports: No Symptoms, Other (Normal bowel movement yesterday) . Denies: Abdominal Pain, Constipation, Decreased Appetite, Diarrhea, Difficulty Swallowing, Hematochezia, Melena, Nausea, Vomiting Genitourinary: Reports: No Symptoms. Denies: Dysuria, Frequency, Burning, Urgency, Hematuria, Retention, Flank Pain Musculoskeletal: Denies: No Symptoms, Neck Pain, Shoulder Pain, Back Pain, Joint Swelling Skin: Reports: Bruising (From IV sites). Denies: Diaphoresis Neurological: Reports: Weakness (As above), Other (Severe presbycusis). Denies : Confusion, Headache, Numbness, Paresthesia, Syncope, Tingling Psychiatric: Denies: Confusion, Depression, Anxiety, Agitation, Cravings, Hallucinations - Patient Data Vitals - Most Recent: Last Vital Signs Temp 37.1 C 10/01/19 07:20 Pulse 80 10/01/19 07:20 Resp 18 10/01/19 07:20 BP 142/60 H 10/01/19 07:48 Pulse Ox 80 L 10/01/19 07:20 Vital Signs - 24 hr 09/30/19 10/01/19 10/01/19 19:39 07:20 07:48 Temperature [ 37.2 C 37.1 C Temporal] Pulse, 81 80 Peripheral [ Pulse Oximetry] Respiratory 16 18 Rate Blood Pressure 142/60 H Blood Pressure 142/60 H [Left Upper Arm ] Blood Pressure 130/59 L [Right Upper Arm] O2 Sat by Pulse 91 L 80 L Oximetry Weight - Most Recent: 60.419 kg I&O - Last 24 Hours: Intake & Output 09/30/19 10/01/19 10/01/19 22:59 06:59 14:59 Intake Total 600 300 Balance 600 300 Imaging Impressions - Last 24 Hours: Telemetry has been discontinued. Lab Results Last 24 Hours: Laboratory Results - last 24 hr 10/01/19 10/01/19 Range/Units 07:16 07:16 WBC 8.0 (4.0-10.2) K/uL RBC 3.36 L (4.33-5.41) M/uL Hgb 10.2 L (13.1-16.8) g/dL Hct 32.6 L (39.0-49.0) % MCV 97.0 (84.0-98.0) fL MCH 30.4 (28.2-33.3) pg MCHC 31.3 L (31.7-36.0) g/dL RDW 15.3 H (11.2-14.1) % Plt Count 241 (150-350) K/uL Neut % (Auto) 77.1 (45.0-80.0) % Lymph % (Auto) 6.5 L (10.0-50.0) % [place] % (Auto) 14.1 H (2.0-14.0) % Eos % (Auto) 2.0 (0.0-5.0) % Baso % (Auto) 0.3 (0.0-2.0) % Neut # (Auto) 6.15 (1.40-7.00) K/uL Lymph # (Auto) 0.52 (0.50-3.50) K/uL [place] # (Auto) 1.12 H (0.00-1.00) K/uL Eos # (Auto) 0.16 (0.00-0.50) K/uL Baso # (Auto) 0.02 (0.00-0.20) K/uL Sodium 136 (136-145) mmol/L Potassium 4.5 (3.5-5.1) mmol/L Chloride 98 (98-107) mmol/L Carbon Dioxide 34.8 H (21.0-32.0) mmol/L BUN 14 (7-18) mg/dL Creatinine 1.05 (0.51-1.17) mg/dL Est Cr Clr Drug Dosing 41.56 mL/min Estimated GFR (MDRD) > 60 mL/min Glucose 102 (74-106) mg/dL Calcium 8.8 (8.5-10.1) mg/dL Stone Results Last 24 Hours: Microbiology 09/28/19 02:40 Aerobic Blood Culture - Preliminary Blood - Venous - Lab Draw NO GROWTH AFTER 3 DAYS Anaerobic Blood Culture - Preliminary NO GROWTH AFTER 3 DAYS 09/28/19 02:40 Aerobic Blood Culture - Preliminary Blood - Venous NO GROWTH AFTER 3 DAYS Anaerobic Blood Culture - Preliminary NO GROWTH AFTER 3 DAYS 09/28/19 07:40 MRSA (PCR) - Final Nasal, Unspecified 09/28/19 07:40 Helicobacter pylori Antigen - Final Stool / Feces 09/28/19 06:10 Gram Stain - Final Sputum - Expectorated Sputum Culture - Final Yeast Isolated Normal Oral Pharyngeal Oliva Med Orders - Current: Current Medications Acetaminophen (Tylenol) 650 mg PO DAILY [facility] Last Admin: 10/01/19 07:48 Dose: 650 mg Acetaminophen (Tylenol) 650 mg PO Q4H PRN PRN Reason: Pain/Fever Last Admin: 09/29/19 23:05 Dose: 650 mg Albuterol (Proventil Neb Soln) 2.5 mg NEB Q2H PRN PRN Reason: Dyspnea Last Admin: 09/29/19 23:05 Dose: 2.5 mg Albuterol/Ipratropium (Duoneb 3.0-0.5 Mg/3 Ml) 3 ml NEB Q4HRRT PRN PRN Reason: Dyspnea Last Admin: 10/01/19 00:41 Dose: 3 ml Albuterol/Ipratropium (Duoneb 3.0-0.5 Mg/3 Ml) 3 ml NEB Q6HRRT [facility] Last Admin: 10/01/19 07:44 Dose: 3 ml Apixaban (Eliquis) 2.5 mg PO BID [facility] Last Admin: 10/01/19 07:49 Dose: 2.5 mg Budesonide (Pulmicort) 0.5 mg NEB BIDRT [facility] Last Admin: 10/01/19 07:49 Dose: 0.5 mg Furosemide (Lasix) 20 mg IVPUSH Q12HR [facility] Last Admin: 10/01/19 07:49 Dose: 20 mg Guaifenesin/Dextromethorphan (Mucinex Dm Er 600-30 Mg) 1 tab PO BID [facility] Last Admin: 10/01/19 07:48 Dose: 1 tab Ceftriaxone Sodium 1 gm/ (Sodium Chloride) 100 mls @ 200 mls/hr IV Q12H [facility] Last Admin: 10/01/19 05:02 Dose: 200 mls/hr Levofloxacin/Dextrose 500 mg/ (Premix) 100 mls @ 100 mls/hr IV Q24H [facility] Last Admin: 10/01/19 05:54 Dose: 100 mls/hr Levothyroxine Sodium (Synthroid) 50 mcg PO ACBREAKFAST [facility] Last Admin: 10/01/19 07:49 Dose: 50 mcg Losartan Potassium (Cozaar) 50 mg PO DAILY [facility] Last Admin: 10/01/19 07:48 Dose: 50 mg Magnesium Oxide (Magnesium Oxide) 400 mg PO QPM [facility] Last Admin: 09/30/19 18:38 Dose: 400 mg Omeprazole (Omeprazole) 20 mg PO ACBREAKFAST [facility] Last Admin: 10/01/19 07:49 Dose: 20 mg Potassium Chloride (Klor-Con M20) 20 meq PO TIDMEALS [facility] Last Admin: 10/01/19 07:48 Dose: 20 meq Simvastatin (Zocor) 40 mg PO BEDTIME [facility] Last Admin: 09/30/19 19:42 Dose: 40 mg Sodium Chloride (Saline Flush) 10 ml FLUSH ASDIRECTED PRN PRN Reason: Keep Vein Open Last Admin: 10/01/19 07:49 Dose: 10 ml Sodium Chloride (Saline Flush) 10 ml FLUSH Q12H [facility] Last Admin: 10/01/19 05:55 Dose: 10 ml Temazepam (Restoril) 15 mg PO BEDTIME PRN PRN Reason: Insomnia Last Admin: 10/01/19 02:24 Dose: 15 mg Tiotropium [place] (Spiriva Handihaler) 18 mcg INH DAILY [facility] Last Admin: 10/01/19 07:50 Dose: 1 inhalation Tramadol HCl (Ultram) 50 mg PO Q6H PRN PRN Reason: pain Last Admin: 10/01/19 02:23 Dose: 50 mg Trolamine Salicylate (Aspercreme 10%) 1 gm TOP QID [facility] Last Admin: 10/01/19 07:50 Dose: 1 applic Discontinued Medications Albuterol/Ipratropium (Duoneb 3.0-0.5 Mg/3 Ml) 3 ml NEB ONETIME ONE Stop: 09/28/19 02:27 Last Admin: 09/28/19 03:13 Dose: Not Given Budesonide (Pulmicort) 0.5 mg NEB ONETIME ONE Stop: 09/28/19 02:27 Last Admin: 09/28/19 02:33 Dose: 0.5 mg Furosemide (Lasix) 40 mg IVPUSH Q8H [facility] Last Admin: 09/29/19 12:31 Dose: 40 mg Ceftriaxone Sodium 1 gm/ (Sodium Chloride) 100 mls @ 200 mls/hr IV ONETIME ONE Stop: 09/28/19 03:53 Last Admin: 09/28/19 03:54 Dose: 200 mls/hr Iopamidol (Isovue-370 (76%)) 100 ml IVPUSH ONETIME ONE Stop: 09/28/19 08:43 Last Admin: 09/28/19 09:30 Dose: 100 ml Nitroglycerin (Nitro-Bid 2%) 0.5 gm TOP Q6H [facility] Last Admin: 09/29/19 15:53 Dose: 0.5 gm - Exam Quality Assessment: Supplemental Oxygen, DVT Prophylaxis (Eliquis). No: Central Line/PICC, Urine Catheter, Skin Breakdown, Restraints General: Alert, Oriented, Cooperative, No Acute Distress HEENT: Pupils Equal, Pupils Reactive, EOMI, Mucous Membr. Moist/Odem Neck: Supple, Trachea Midline, No JVD, No Thyromegaly, Carotid Bruit (Mild bilateral carotid bruits versus transmitted heart sounds). No: Lymphadenopathy Lungs: Normal Respiratory Effort, Rales (Bilateral basilar- mild). No: Rhonchi , Rub, Wheezing Cardiovascular: Regular Rate, Irregular Rhythm, Murmurs (34/6 DEVIKA of the mitral valve). No: Gallops, Rubs GI/Abdominal Exam: Normal Bowel Sounds, Soft, Non-Tender, No Organomegaly, No Distention, No Abnormal Bruit, No Mass, Pelvis Stable. No: Guarding (Male) Exam: Deferred Back Exam: Full Range of Motion, Other (Mild scoliosis). No: CVA Tenderness (L) , CVA Tenderness (R), Muscle Spasm Extremities: Normal Inspection, Normal Range of Motion, Non-Tender, No Pedal Edema, Normal Capillary Refill. No: Adama's Sign Peripheral Pulses: 1+: Dorsalis Pedis (L), Dorsalis Pedis (R), 2+: Radial (L), Radial (R) Skin: Ecchymosis (Arms bilaterally secondary to IV starts) Psy/Mental Status: Alert, Normal Affect, Normal Mood. No: Hallucinations, Withdrawal Symptoms Sepsis Event Note - Evaluation Sepsis Screening Result: No Definite Risk - Focused Exam Vital Signs: Vital Signs Temp Pulse Resp BP BP Pulse Ox 10/01/19 07:48 142/60 H 10/01/19 07:20 37.1 C 80 18 142/60 H 80 L Date Exam was Performed: 10/01/19 Time Exam was Performed: 10:37 - Problem List & Annotations (1) CHF (congestive heart failure) SNOMED Code(s): 85603778 Code(s): I50.9 - HEART FAILURE, UNSPECIFIED Status: Chronic Priority: High Current Visit: Yes Qualifiers: Heart failure type: unspecified Heart failure chronicity: acute on chronic Qualified Code(s): I50.9 - Heart failure, unspecified Annotation/Comment:: IV Lasix therapy has been decreased with repeat chest x- ray to be conducted prior to discharge. Moderate CHF with left pleural effusion by chest x-ray on admission. Severely elevated BNP with moderate secondary change in troponin I, which was still normal however subsequent development of probable acute CO as below. Note comfort care. EKG prior to discharge with plan discharged tomorrow. EKG and cardiac enzymes were otherwise initially normal on admission. Note d-dimer elevation as below. Initiated aggressive IV Lasix therapy on admission with caution secondary to his renal insufficiency with no complications during this hospitalization. (2) Acute CO SNOMED Code(s): 79797559 Code(s): I21.9 - ACUTE MYOCARDIAL INFARCTION, UNSPECIFIED Status: Acute Priority: High Current Visit: Yes Onset Date: 09/29/19 Qualifiers: Myocardial infarction type: non-ST elevation myocardial infarction Qualified Code(s): I21.4 - Non-ST elevation (NSTEMI) myocardial infarction Annotation/Comment:: Patient initially treated with nitro paste therapy throughout this hospitalization. Note comfort care. Imdur therapy initiated on . Continue comfort care no further aggressive cardiac workup, etc. per the patient and his family's request as below. (3) Pneumonia SNOMED Code(s): 332206389 Code(s): J18.9 - PNEUMONIA, UNSPECIFIED ORGANISM Status: Acute Priority: High Current Visit: Yes Onset Date: 09/28/19 Qualifiers: Pneumonia type: due to unspecified organism Laterality: bilateral Lung location: unspecified part of lung Qualified Code(s): J18.9 - Pneumonia, unspecified organism Annotation/Comment:: IV Rocephin therapy initiated in the emergency room with additional IV Cipro after admission. Blood Cultures 2 are negative to this point. Sputum specimen for culture and sensitivity could not be obtained. Lactic acid was normal on admission with no clinical evidence of sepsis. (4) D-dimer, elevated SNOMED Code(s): 332634426 Code(s): R79.89 - OTHER SPECIFIED ABNORMAL FINDINGS OF BLOOD CHEMISTRY Status: Acute Priority: High Current Visit: Yes Onset Date: 09/28/19 Annotation/Comment:: No direct clinical evidence of a DVT or PE. CTA of the chest using PE protocol was conducted shortly after admission and was negative for PE. Venous Doppler studies of the lower extremities were also negative on 09/29. Note current Eliquis therapy. (5) Need for comfort care SNOMED Code(s): 052691831, 827928076 Code(s): YIJ1438 - Status: Chronic Priority: High Current Visit: Yes Annotation/Comment:: Comfort/palliative care confirmed with the patient and long term records. The patient's has been updated about patient's care throughout this hospitalization with comfort care status also confirmed by him. Long-term prognosis is poor. (6) COPD (chronic obstructive pulmonary disease) SNOMED Code(s): 00707381 Code(s): J44.9 - CHRONIC OBSTRUCTIVE PULMONARY DISEASE, UNSPECIFIED Status : Chronic Priority: Medium Current Visit: Yes Qualifiers: COPD type: COPD with acute lower respiratory infection Qualified Code(s): J44.0 - Chronic obstructive pulmonary disease with (acute) lower respiratory infection Annotation/Comment:: O2 dependent COPD, although the patient was only receiving his oxygen on a 3 times a day basis prior to admission? Patient was successfully titrated down to 4 L/m via nasal cannula in the emergency room with improved O2 sats of 96% prior to admission. Continued aggressive nebulizer treatments throughout this hospitalization with additional Pulmicort nebulizer treatment given in the emergency room. (7) Atrial fibrillation SNOMED Code(s): 50797618 Code(s): I48.91 - UNSPECIFIED ATRIAL FIBRILLATION Status: Chronic Priority: High Current Visit: Yes Qualifiers: Atrial fibrillation type: longstanding persistent Qualified Code(s): I48.11 - Longstanding persistent atrial fibrillation Annotation/Comment:: Currently treated with Eliquis. Note intermittent tachycardia initially in the emergency room possibly secondary to recent DuoNeb nebulizer treatment prior to patient's transfer to this facility. Current CHF with no chest pain or anginal type symptoms. Note comfort care. Cardiology consultation depending on his clinical course. (8) Anemia SNOMED Code(s): 326321007 Code(s): D64.9 - ANEMIA, UNSPECIFIED Status: Acute Priority: Medium Current Visit: Yes Onset Date: 09/28/19 Qualifiers: Anemia type: iron deficiency Iron deficiency anemia type: other iron deficiency Qualified Code(s): D50.8 - Other iron deficiency anemias Annotation/Comment:: Iron studies did show a mildly decreased iron level with a normal vitamin B 12 level on 09/29. Iron sulfate initiated. Consider repeat TIBC panel in 4 weeks. (9) Hyperlipidemia SNOMED Code(s): 99785469 Code(s): E78.5 - HYPERLIPIDEMIA, UNSPECIFIED Status: Chronic Priority: Medium Current Visit: Yes Qualifiers: Hyperlipidemia type: unspecified Qualified Code(s): E78.5 - Hyperlipidemia , unspecified Annotation/Comment:: Currently under therapy. Glycosylated hemoglobin borderline elevated at 6.3% with normal lipid panel. Mildly elevated random blood glucose on admission. Observe for now. (10) Hypertension SNOMED Code(s): 80140083 Code(s): I10 - ESSENTIAL (PRIMARY) HYPERTENSION Status: Chronic Priority : High Current Visit: Yes Qualifiers: Hypertension type: essential hypertension Qualified Code(s): I10 - Essential (primary) hypertension Annotation/Comment:: Blood pressure somewhat elevated in the emergency room. Continue medication adjustments during this hospitalization. 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 Initiated high-protein Glucerna supplements during this hospitalization. (12) Hypomagnesemia SNOMED Code(s): 115238400 Code(s): E83.42 - HYPOMAGNESEMIA Status: Acute Priority: Medium Current Visit: Yes Onset Date: 09/28/19 Annotation/Comment:: Initiated magnesium oxide therapy after admission. (13) Osteoarthritis SNOMED Code(s): 576008528 Code(s): M19.90 - UNSPECIFIED OSTEOARTHRITIS, UNSPECIFIED SITE Status: Chronic Priority: Medium Current Visit: Yes Qualifiers: Osteoarthritis location: multiple joints Osteoarthritis type: primary Qualified Code(s): M15.0 - Primary generalized (osteo)arthritis Annotation/Comment:: Stable by history (14) PVCs (premature ventricular contractions) SNOMED Code(s): 66909054 Code(s): I49.3 - VENTRICULAR PREMATURE DEPOLARIZATION Status: Acute Priority: Medium Current Visit: Yes Onset Date: 09/28/19 Annotation/ Comment:: Nonsymptomatic. Note current pacemaker. (15) Peptic reflux disease SNOMED Code(s): 322189250 Code(s): K21.9 - GASTRO-ESOPHAGEAL REFLUX DISEASE WITHOUT ESOPHAGITIS Status: Chronic Priority: Medium Current Visit: Yes Annotation/Comment:: Stable by history under current Prilosec therapy. (16) Renal insufficiency SNOMED Code(s): 261010457, 656598230 Code(s): N28.9 - DISORDER OF KIDNEY AND URETER, UNSPECIFIED Status: Chronic Priority: Medium Current Visit: Yes Annotation/Comment:: BUN and creatinine were normal with history of stage III renal insufficiency per long term records. (17) Heart murmur SNOMED Code(s): 12770237 Code(s): R01.1 - CARDIAC MURMUR, UNSPECIFIED Status: Chronic Priority: High Current Visit: Yes Annotation/Comment:: Severe mitral valve insufficiency based on clinical exam today. Note NO CODE STATUS with echocardiogram not to be performed. (18) Hypothyroidism (acquired) SNOMED Code(s): 157697700 Code(s): E03.9 - HYPOTHYROIDISM, UNSPECIFIED Status: Chronic Priority: Medium Current Visit: Yes Annotation/Comment:: TSH somewhat elevated. Increase Synthroid supplementation especially in light of newly initiated magnesium oxide therapy. TSH should be repeated in about 4 weeks. - Problem List Review Problem List Initiated/Reviewed/Updated: Yes - Assessment Assessment:: As above - Plan Plan:: As above. Extensive precautions were given to the patient, who is in agreement with the treatment plan. He does need an additional 24 hours of inpatient/acute care secondary to multiple health issues as above. Planned hospital discharge back to long term tomorrow.
[2019-10-01] MEDS: Isosorbide Mononitrate 30 MG Tab.ER PO SCH (12:25)
[2019-10-01] MEDS: Ferrous Sulfate 325 MG Tab PO SCH (18:12)
[2019-10-01] MEDS: Magnesium Oxide 400 MG Tab PO SCH (18:12)
[2019-10-01] MEDS: Simvastatin 20 MG Tab PO SCH (20:06)
[2019-10-02] MEDS: traMADol 50 MG Tab PO PRN (01:31)
[2019-10-02] MEDS: Albuterol/Ipratropium 3.0-0.5 MG/3 ML Neb Soln NEB SCH ×4 (01:32→19:33)
[2019-10-02] MEDS: cefTRIAXone 1 GM in Sodium Chloride 0.9% 100 ML IV SCH ×2 (04:08→16:15)
[2019-10-02] MEDS: Sodium Chloride 0.9% 10 ML Syringe FLUSH SCH ×2 (04:08→16:15)
[2019-10-02] MEDS: Levofloxacin/Dextrose 5%-Water 500 MG in Premix Bag 1 BAG IV SCH (04:46)
[2019-10-02] MEDS: Acetaminophen 325 MG Tab PO PRN (05:54)
[2019-10-02] MEDS: Furosemide 20 MG/2 ML VIAL IVPUSH SCH (08:02)
[2019-10-02] MEDS: Sodium Chloride 0.9% 10 ML Syringe FLUSH PRN ×3 (08:03→17:09)
[2019-10-02] MEDS: Tiotropium Inhaler 18 MCG Inhalation Powder Cap Kit of 5 INH SCH (08:08)
[2019-10-02] MEDS: Budesonide 0.5 MG/2 ML Neb Susp NEB SCH ×2 (08:08→19:33)
[2019-10-02] MEDS: Dextromethorphan/guaiFENesin 600-30 MG Tab.ER PO SCH ×2 (08:09→18:21)
[2019-10-02] MEDS: Omeprazole 20 MG Cap.CR PO SCH (08:10)
[2019-10-02] MEDS: Levothyroxine 50 MCG Tab PO SCH (08:10)
[2019-10-02] MEDS: Potassium Chloride 20 MEQ Tab.ER PO SCH ×2 (08:10→18:22)
[2019-10-02] MEDS: Acetaminophen 325 MG Tab PO SCH (08:11)
[2019-10-02] MEDS: Losartan 50 MG Tab PO SCH (08:13)
[2019-10-02] MEDS: Apixaban 2.5 MG Tab PO SCH ×2 (08:13→18:20)
[2019-10-02] MEDS: Isosorbide Mononitrate 30 MG Tab.ER PO SCH (08:13)
[2019-10-02] MEDS: Trolamine Salicylate/Aloe Vera 10% Crm 85 GM Tube TOP SCH ×4 (08:18→19:34)
[2019-10-02 08:23] LABS: CHLORIDE,CL 97 mmol/L (98-107); SODIUM,NA 135 mmol/L (136-145)
[2019-10-02] MEDS: Metolazone 2.5 MG Tab PO SCH (11:25)
[2019-10-02] MEDS: Furosemide 40 MG/4 ML VIAL IVPUSH SCH ×2 (12:49→19:33)
--- NOTE | 2019-10-02 13:49 | PCM.PN ---
- General Info Date of Service: 10/02/19 Admission Dx/Problem (Free Text): 1. CHF 2. COPD exacerbation 3. Pneumonia Functional Status: Reports: Pain Controlled, Tolerating Diet, Ambulating, Urinating, Incentive Spirometry. Denies: New Symptoms Pain Score: 0 - Review of Systems General: Reports: Weakness (Slowly improving). 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 Denies: Contact Lenses, Dysphasia, Ear Pain, Eye Pain, Headaches, Sinus Congestion, Sore Throat, Rhinitis Pulmonary: Reports: Shortness of Breath (Slowly improving), Cough, Sputum, Wheezing. Denies: Pleuritic Chest Pain, Hemoptysis Cardiovascular: Reports: Dyspnea on Exertion. Denies: Chest Pain, Palpitations , Orthopnea, PND, Edema, Lightheadedness Gastrointestinal: Reports: No Symptoms, Other (Normal bowel movement yesterday evening). Denies: Abdominal Pain, Constipation, Decreased Appetite, Diarrhea, Difficulty Swallowing, Flatus, Hematochezia, Melena, Nausea, Vomiting Genitourinary: Reports: No Symptoms. Denies: Dysuria, Frequency, Burning, Pain , Urgency, Incontinence, Hematuria, Retention, Flank Pain Musculoskeletal: Reports: No Symptoms. Denies: Neck Pain, Shoulder Pain Skin: Reports: Bruising (IV sites). Denies: Diaphoresis, Rash Neurological: Reports: Weakness (As above). Denies: Confusion, Headache, Numbness, Paresthesia, Tingling Psychiatric: Reports: No Symptoms. Denies: Confusion, Depression, Agitation, Cravings, Hallucinations - Patient Data Vitals - Most Recent: Last Vital Signs Temp 36.8 C 10/02/19 11:26 Pulse 71 10/02/19 11:26 Resp 20 10/02/19 11:26 BP 110/60 10/02/19 11:26 Pulse Ox 100 10/02/19 11:26 Vital Signs - 24 hr 10/01/19 10/02/19 10/02/19 19:55 08:00 08:13 Temperature [ 36.6 C 36.6 C Temporal] Pulse, 77 94 Peripheral [ Pulse Oximetry] Respiratory 28 H 24 H Rate Blood Pressure 140/72 Blood Pressure 140/72 [Left Upper Arm ] Blood Pressure 132/50 L [Right Upper Arm] O2 Sat by Pulse 90 L 94 L Oximetry 10/02/19 11:26 Temperature [ 36.8 C Temporal] Pulse, 71 Peripheral [ Pulse Oximetry] Respiratory 20 Rate Blood Pressure Blood Pressure [Left Upper Arm ] Blood Pressure 110/60 [Right Upper Arm] O2 Sat by Pulse 100 Oximetry Weight - Most Recent: 60.419 kg I&O - Last 24 Hours: Intake & Output 10/01/19 10/02/19 10/02/19 22:59 06:59 14:59 Intake Total 700 600 830 Output Total 800 300 175 Balance -100 300 655 Imaging Impressions - Last 24 Hours: Chest x-ray, PA and lateral, shows moderate cardiomegaly and CHF with mild to moderate bilateral pleural effusions, left greater than right. Mild aortic valve calcification with additional moderate diffuse COPD changes without pneumothorax. Note pulmonary infiltrates difficult to assess secondary to CHF. Severe kyphosis with additional moderate osteoarthritic and osteoporotic changes. Pacemaker noted. Lab Results Last 24 Hours: Laboratory Results - last 24 hr 10/02/19 10/02/19 10/02/19 Range/Units 05:11 07:40 07:40 WBC 9.9 (4.0-10.2) K/uL RBC 3.48 L (4.33-5.41) M/uL Hgb 10.3 L (13.1-16.8) g/dL Hct 33.5 L (39.0-49.0) % MCV 96.3 (84.0-98.0) fL MCH 29.6 (28.2-33.3) pg MCHC 30.7 L (31.7-36.0) g/dL RDW 15.1 H (11.2-14.1) % Plt Count 235 (150-350) K/uL Neut % (Auto) 81.8 H (45.0-80.0) % Lymph % (Auto) 4.9 L (10.0-50.0) % Schuyler % (Auto) 12.9 (2.0-14.0) % Eos % (Auto) 0.3 (0.0-5.0) % Baso % (Auto) 0.1 (0.0-2.0) % Neut # (Auto) 8.13 H (1.40-7.00) K/uL Lymph # (Auto) 0.49 L (0.50-3.50) K/uL [place]yler # (Auto) 1.28 H (0.00-1.00) K/uL Eos # (Auto) 0.03 (0.00-0.50) K/uL Baso # (Auto) 0.01 (0.00-0.20) K/uL D-Dimer, Quantitative (0-400) ng/mL Sodium 135 L (136-145) mmol/L Potassium 4.7 (3.5-5.1) mmol/L Chloride 97 L (98-107) mmol/L Carbon Dioxide 32.8 H (21.0-32.0) mmol/L BUN 17 (7-18) mg/dL Creatinine 1.08 (0.51-1.17) mg/dL Est Cr Clr Drug Dosing 40.40 mL/min Estimated GFR (MDRD) > 60 mL/min Glucose 110 H (74-106) mg/dL Calcium 9.2 (8.5-10.1) mg/dL Magnesium 1.8 (1.8-2.4) mg/dL Total Bilirubin 0.4 (0.2-1.0) mg/dL AST 19 (15-37) U/L ALT 18 (12-78) U/L Alkaline Phosphatase 109 (46-116) IU/L Creatine Kinase 134 (26-308) U/L Creatine Kinase Index 1.9 (0.0-2.5) % CK-MB (CK-2) 2.50 (0.00-3.60) ng/mL Troponin I 0.026 (0.000-0.056) ng/mL NT-Pro-B Natriuret Pep 7976 H (0-125) pg/mL Total Protein 7.1 (6.4-8.2) g/dL Albumin 2.5 L (3.4-5.0) g/dL 10/02/19 Range/Units 07:40 WBC (4.0-10.2) K/uL RBC (4.33-5.41) M/uL Hgb (13.1-16.8) g/dL Hct (39.0-49.0) % MCV (84.0-98.0) fL MCH (28.2-33.3) pg MCHC (31.7-36.0) g/dL RDW (11.2-14.1) % Plt Count (150-350) K/uL Neut % (Auto) (45.0-80.0) % Lymph % (Auto) (10.0-50.0) % [place]yler % (Auto) (2.0-14.0) % Eos % (Auto) (0.0-5.0) % Baso % (Auto) (0.0-2.0) % Neut # (Auto) (1.40-7.00) K/uL Lymph # (Auto) (0.50-3.50) K/uL [place] # (Auto) (0.00-1.00) K/uL Eos # (Auto) (0.00-0.50) K/uL Baso # (Auto) (0.00-0.20) K/uL D-Dimer, Quantitative 1160 H (0-400) ng/mL Sodium (136-145) mmol/L Potassium (3.5-5.1) mmol/L Chloride (98-107) mmol/L Carbon Dioxide (21.0-32.0) mmol/L BUN (7-18) mg/dL Creatinine (0.51-1.17) mg/dL Est Cr Clr Drug Dosing mL/min Estimated GFR (MDRD) mL/min Glucose (74-106) mg/dL Calcium (8.5-10.1) mg/dL Magnesium (1.8-2.4) mg/dL Total Bilirubin (0.2-1.0) mg/dL AST (15-37) U/L ALT (12-78) U/L Alkaline Phosphatase (46-116) IU/L Creatine Kinase (26-308) U/L Creatine Kinase Index (0.0-2.5) % CK-MB (CK-2) (0.00-3.60) ng/mL Troponin I (0.000-0.056) ng/mL NT-Pro-B Natriuret Pep (0-125) pg/mL Total Protein (6.4-8.2) g/dL Albumin (3.4-5.0) g/dL Stone Results Last 24 Hours: Microbiology 09/28/19 02:40 Aerobic Blood Culture - Preliminary Blood - Venous - Lab Draw NO GROWTH AFTER 4 DAYS Anaerobic Blood Culture - Preliminary NO GROWTH AFTER 4 DAYS 09/28/19 02:40 Aerobic Blood Culture - Preliminary Blood - Venous NO GROWTH AFTER 4 DAYS Anaerobic Blood Culture - Preliminary NO GROWTH AFTER 4 DAYS Med Orders - Current: Current Medications Acetaminophen (Tylenol) 650 mg PO DAILY [facility] Last Admin: 10/02/19 08:11 Dose: 650 mg Acetaminophen (Tylenol) 650 mg PO Q4H PRN PRN Reason: Pain/Fever Last Admin: 10/02/19 05:54 Dose: 650 mg Albuterol (Proventil Neb Soln) 2.5 mg NEB Q2H PRN PRN Reason: Dyspnea Last Admin: 09/29/19 23:05 Dose: 2.5 mg Albuterol/Ipratropium (Duoneb 3.0-0.5 Mg/3 Ml) 3 ml NEB Q4HRRT PRN PRN Reason: Dyspnea Last Admin: 10/01/19 00:41 Dose: 3 ml Albuterol/Ipratropium (Duoneb 3.0-0.5 Mg/3 Ml) 3 ml NEB Q6HRRT [facility] Last Admin: 10/02/19 08:08 Dose: 3 ml Apixaban (Eliquis) 2.5 mg PO BID [facility] Last Admin: 10/02/19 08:13 Dose: 2.5 mg Budesonide (Pulmicort) 0.5 mg NEB BIDRT [facility] Last Admin: 10/02/19 08:08 Dose: 0.5 mg Ferrous Sulfate (Ferrous Sulfate) 325 mg PO QPM [facility] Last Admin: 10/01/19 18:12 Dose: 325 mg Furosemide (Lasix) 40 mg IVPUSH Q8H [facility] Last Admin: 10/02/19 12:49 Dose: 40 mg Guaifenesin/Dextromethorphan (Mucinex Dm Er 600-30 Mg) 1 tab PO BID [facility] Last Admin: 10/02/19 08:09 Dose: 1 tab Ceftriaxone Sodium 1 gm/ (Sodium Chloride) 100 mls @ 200 mls/hr IV Q12H [facility] Last Admin: 10/02/19 04:08 Dose: 200 mls/hr Levofloxacin/Dextrose 500 mg/ (Premix) 100 mls @ 100 mls/hr IV Q24H [facility] Last Admin: 10/02/19 04:46 Dose: 100 mls/hr Isosorbide Mononitrate (Imdur) 30 mg PO DAILY [facility] Last Admin: 10/02/19 08:13 Dose: 30 mg Levothyroxine Sodium (Synthroid) 50 mcg PO ACBREAKFAST [facility] Last Admin: 10/02/19 08:10 Dose: 50 mcg Losartan Potassium (Cozaar) 50 mg PO DAILY [facility] Last Admin: 10/02/19 08:13 Dose: 50 mg Magnesium Oxide (Magnesium Oxide) 400 mg PO QPM [facility] Last Admin: 10/01/19 18:12 Dose: 400 mg Metolazone (Zaroxolyn) 2.5 mg PO DAILY [facility] Last Admin: 10/02/19 11:25 Dose: 2.5 mg Omeprazole (Omeprazole) 20 mg PO ACBREAKFAST [facility] Last Admin: 10/02/19 08:10 Dose: 20 mg Potassium Chloride (Klor-Con M20) 20 meq PO BID [facility] Last Admin: 10/02/19 08:10 Dose: 20 meq Simvastatin (Zocor) 40 mg PO BEDTIME [facility] Last Admin: 10/01/19 20:06 Dose: 40 mg Sodium Chloride (Saline Flush) 10 ml FLUSH ASDIRECTED PRN PRN Reason: Keep Vein Open Last Admin: 10/02/19 12:49 Dose: 10 ml Sodium Chloride (Saline Flush) 10 ml FLUSH Q12H [facility] Last Admin: 10/02/19 04:08 Dose: 10 ml Temazepam (Restoril) 15 mg PO BEDTIME PRN PRN Reason: Insomnia Last Admin: 10/01/19 20:06 Dose: 15 mg Tiotropium [place] (Spiriva Handihaler) 18 mcg INH DAILY [facility] Last Admin: 10/02/19 08:08 Dose: 1 inhalation Tramadol HCl (Ultram) 50 mg PO Q6H PRN PRN Reason: pain Last Admin: 10/02/19 01:31 Dose: 50 mg Trolamine Salicylate (Aspercreme 10%) 1 gm TOP QID [facility] Last Admin: 10/02/19 11:25 Dose: 1 applic Discontinued Medications Albuterol/Ipratropium (Duoneb 3.0-0.5 Mg/3 Ml) 3 ml NEB ONETIME ONE Stop: 09/28/19 02:27 Last Admin: 09/28/19 03:13 Dose: Not Given Budesonide (Pulmicort) 0.5 mg NEB ONETIME ONE Stop: 09/28/19 02:27 Last Admin: 09/28/19 02:33 Dose: 0.5 mg Furosemide (Lasix) 40 mg IVPUSH Q8H [facility] Last Admin: 09/29/19 12:31 Dose: 40 mg Furosemide (Lasix) 20 mg IVPUSH Q12HR [facility] Last Admin: 10/02/19 08:02 Dose: 20 mg Ceftriaxone Sodium 1 gm/ (Sodium Chloride) 100 mls @ 200 mls/hr IV ONETIME ONE Stop: 09/28/19 03:53 Last Admin: 09/28/19 03:54 Dose: 200 mls/hr Iopamidol (Isovue-370 (76%)) 100 ml IVPUSH ONETIME ONE Stop: 09/28/19 08:43 Last Admin: 09/28/19 09:30 Dose: 100 ml Nitroglycerin (Nitro-Bid 2%) 0.5 gm TOP Q6H [facility] Last Admin: 09/29/19 15:53 Dose: 0.5 gm Potassium Chloride (Klor-Con M20) 20 meq PO TIDMEALS [facility] Last Admin: 10/01/19 07:48 Dose: 20 meq - Exam Quality Assessment: Supplemental Oxygen, DVT Prophylaxis (Eliquis). No: Urine Catheter, Restraints General: Alert, Oriented, Cooperative, No Acute Distress HEENT: Pupils Equal, Pupils Reactive, EOMI, Mucous Membr. Moist/[place], Other ( Patient is wearing glasses) Neck: Supple, Trachea Midline, No JVD, No Thyromegaly, Carotid Bruit (Mild to moderate bilateral carotid bruits versus transmitted heart sounds). No: Lymphadenopathy Lungs: Decreased Breath Sounds (Chronic), Rales (Mild to moderate bilateral), Rhonchi (Improved diffuse bilateral occasional), Wheezing (Improved diffuse), Other (Baseline chronic dyspnea with increased respiratory effort). No: Rub Cardiovascular: Regular Rate, Irregular Rhythm, Murmurs (Stable 34/6 DEVIKA of the mitral valve). No: Gallops, Rubs GI/Abdominal Exam: Normal Bowel Sounds, Soft, Non-Tender, No Organomegaly, No Distention, No Abnormal Bruit, No Mass, Pelvis Stable, Hernia (4 cm indirect right inguinal hernia minimal localized tenderness). No: Guarding, Rebound, Tender (Male) Exam: Circumcised, Hernia (As above) Back Exam: Other (Moderate kyphosis). No: CVA Tenderness (L), CVA Tenderness (R ), Muscle Spasm, Paraspinal Tenderness, Vertebral Tenderness Extremities: Normal Inspection, Normal Range of Motion, Non-Tender, No Pedal Edema, Normal Capillary Refill. No: Adama's Sign Peripheral Pulses: 2+: Radial (L), Radial (R), Dorsalis Pedis (L), Dorsalis Pedis (R) Skin: Ecchymosis (IV sites on forearms bilaterally) Neurological: No New Focal Deficit, Other (Negative Babinski's) Psy/Mental Status: Alert, Normal Affect, Normal Mood. No: Agitated, Hallucinations, Withdrawal Symptoms EKG INTERPRETATION EKG Date: 10/02/19 Time: 07:18 Rhythm: A-Fib Rate (Beats/Min): 90 [place]: Normal P-Wave: Variable QRS: Normal ST-T: Normal (T-wave inversion in lead 3) QT: Normal [place]/PQ Interval: Variable Comparison: Change From Previous EKG (New T wave inversion in lead 3 with resolved T-wave inversions in leads V2 since 09/29/19) EKG Interpretation Comments: 1. No acute ischemic changes 2. Atrial fibrillation Sepsis Event Note - Evaluation Sepsis Screening Result: Sepsis Risk - Focused Exam Vital Signs: Vital Signs Temp Pulse Resp BP BP BP Pulse Ox 10/02/19 11:26 36.8 C 71 20 110/60 100 10/02/19 08:13 140/72 10/02/19 08:00 36.6 C 94 24 H 140/72 94 L Date Exam was Performed: 10/02/19 Time Exam was Performed: 14:12 - Problem List & Annotations (1) CHF (congestive heart failure) SNOMED Code(s): 42763385 Code(s): I50.9 - HEART FAILURE, UNSPECIFIED Status: Chronic Priority: High Current Visit: Yes Qualifiers: Heart failure type: unspecified Heart failure chronicity: acute on chronic Qualified Code(s): I50.9 - Heart failure, unspecified Annotation/Comment:: Worsening CHF by chest x-ray and clinical exam since IV Lasix therapy had been decreased with repeat chest x-ray to be conducted prior to discharge. Moderate CHF with left greater than right pleural persistent pleural effusion by chest x-ray on 10/02. Severely elevated BNP with some improvement. Initial moderate secondary change in troponin I, which was still normal, however subsequent development of probable acute UT as below. Note comfort care. EKG on 10/02 showed resolution of possible anterior wall ischemia since 09/29 as above. Note D-dimer elevation as below. Initiated aggressive IV Lasix therapy on admission with caution secondary to his renal insufficiency with no complications during this hospitalization, however IV Lasix therapy had to be increased once again today. Additional oral Zaroxolyn started on 10/02 with caution, although this may not be needed at discharge. Note extended hospital stay was required secondary to patient's refractory CHF as above. (2) Acute UT SNOMED Code(s): 08496474 Code(s): I21.9 - ACUTE MYOCARDIAL INFARCTION, UNSPECIFIED Status: Acute Priority: High Current Visit: Yes Onset Date: 09/29/19 Qualifiers: Myocardial infarction type: non-ST elevation myocardial infarction Qualified Code(s): I21.4 - Non-ST elevation (NSTEMI) myocardial infarction Annotation/Comment:: Patient initially treated with nitro paste therapy during initial phases of this hospitalization. Note comfort care. Imdur therapy at a low dose initiated on 10/01, however this may need to increase at time of discharge. Continue comfort care with no further aggressive cardiac workup, etc. per the patient and his family's request as below. (3) Pneumonia SNOMED Code(s): 609251968 Code(s): J18.9 - PNEUMONIA, UNSPECIFIED ORGANISM Status: Acute Priority: High Current Visit: Yes Onset Date: 09/28/19 Qualifiers: Pneumonia type: due to unspecified organism Laterality: bilateral Lung location: unspecified part of lung Qualified Code(s): J18.9 - Pneumonia, unspecified organism Annotation/Comment:: IV Rocephin therapy initiated in the emergency room with additional IV Cipro after admission. Blood Cultures 2 are negative to this point. Sputum specimen for culture and sensitivity obtained with no significant abnormal floor other than some yeast. Lactic acid was normal on admission with no clinical evidence of sepsis. Continue IV antibiotic therapy for now. (4) D-dimer, elevated SNOMED Code(s): 464671964 Code(s): R79.89 - OTHER SPECIFIED ABNORMAL FINDINGS OF BLOOD CHEMISTRY Status: Acute Priority: High Current Visit: Yes Onset Date: 09/28/19 Annotation/Comment:: No direct clinical evidence of a DVT or PE. CTA of the chest using PE protocol was conducted shortly after admission and was negative for PE. Venous Doppler studies of the lower extremities were also negative on 09/29. Note current Eliquis therapy. (5) Need for comfort care SNOMED Code(s): 705529467, 542030744 Code(s): AXM8378 - Status: Chronic Priority: High Current Visit: Yes Annotation/Comment:: Comfort/palliative care confirmed with the patient and [facility] records. The patient's has been updated about patient's care throughout this hospitalization with comfort care status also confirmed by him. Long-term prognosis is poor. (6) COPD (chronic obstructive pulmonary disease) SNOMED Code(s): 38404618 Code(s): J44.9 - CHRONIC OBSTRUCTIVE PULMONARY DISEASE, UNSPECIFIED Status : Chronic Priority: Medium Current Visit: Yes Qualifiers: COPD type: COPD with acute lower respiratory infection Qualified Code(s): J44.0 - Chronic obstructive pulmonary disease with (acute) lower respiratory infection Annotation/Comment:: O2 dependent COPD, although the patient was only receiving his oxygen on a 3 times a day basis prior to admission? Patient was successfully titrated down to 4 L/m via nasal cannula in the emergency room with improved O2 sats of 96% prior to admission. Continued aggressive nebulizer treatments throughout this hospitalization with additional Pulmicort nebulizer treatment given in the emergency room. (7) Atrial fibrillation SNOMED Code(s): 58822136 Code(s): I48.91 - UNSPECIFIED ATRIAL FIBRILLATION Status: Chronic Priority: High Current Visit: Yes Qualifiers: Atrial fibrillation type: longstanding persistent Qualified Code(s): I48.11 - Longstanding persistent atrial fibrillation Annotation/Comment:: Currently treated with Eliquis. Note intermittent tachycardia initially in the emergency room possibly secondary to recent DuoNeb nebulizer treatment prior to patient's transfer to this facility. Current CHF with no chest pain or anginal type symptoms. Note comfort care. Cardiology consultation depending on his clinical course. (8) Anemia SNOMED Code(s): 431389254 Code(s): D64.9 - ANEMIA, UNSPECIFIED Status: Acute Priority: Medium Current Visit: Yes Onset Date: 09/28/19 Qualifiers: Anemia type: iron deficiency Iron deficiency anemia type: other iron deficiency Qualified Code(s): D50.8 - Other iron deficiency anemias Annotation/Comment:: Iron studies did show a mildly decreased iron level with a normal vitamin B 12 level on 09/29. Iron sulfate initiated. Consider repeat TIBC panel in 4 weeks. (9) Hyperlipidemia SNOMED Code(s): 64494784 Code(s): E78.5 - HYPERLIPIDEMIA, UNSPECIFIED Status: Chronic Priority: Medium Current Visit: Yes Qualifiers: Hyperlipidemia type: unspecified Qualified Code(s): E78.5 - Hyperlipidemia , unspecified Annotation/Comment:: Currently under therapy. Glycosylated hemoglobin borderline elevated at 6.3% with normal lipid panel. Mildly elevated random blood glucose on admission. Observe for now. (10) Hypertension SNOMED Code(s): 89989858 Code(s): I10 - ESSENTIAL (PRIMARY) HYPERTENSION Status: Chronic Priority : High Current Visit: Yes Qualifiers: Hypertension type: essential hypertension Qualified Code(s): I10 - Essential (primary) hypertension Annotation/Comment:: Blood pressure somewhat elevated in the emergency room. Continue medication adjustments during this hospitalization. 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 Initiated high-protein Glucerna supplements during this hospitalization. (12) Hypomagnesemia SNOMED Code(s): 187017407 Code(s): E83.42 - HYPOMAGNESEMIA Status: Acute Priority: Medium Current Visit: Yes Onset Date: 09/28/19 Annotation/Comment:: Initiated magnesium oxide therapy after admission. (13) Osteoarthritis SNOMED Code(s): 137532955 Code(s): M19.90 - UNSPECIFIED OSTEOARTHRITIS, UNSPECIFIED SITE Status: Chronic Priority: Medium Current Visit: Yes Qualifiers: Osteoarthritis location: multiple joints Osteoarthritis type: primary Qualified Code(s): M15.0 - Primary generalized (osteo)arthritis Annotation/Comment:: Stable by history (14) PVCs (premature ventricular contractions) SNOMED Code(s): 93792925 Code(s): I49.3 - VENTRICULAR PREMATURE DEPOLARIZATION Status: Acute Priority: Medium Current Visit: Yes Onset Date: 09/28/19 Annotation/ Comment:: Nonsymptomatic. Note current pacemaker. (15) Peptic reflux disease SNOMED Code(s): 632669487 Code(s): K21.9 - GASTRO-ESOPHAGEAL REFLUX DISEASE WITHOUT ESOPHAGITIS Status: Chronic Priority: Medium Current Visit: Yes Annotation/Comment:: Stable by history under current Prilosec therapy. (16) Renal insufficiency SNOMED Code(s): 216905041, 105370948 Code(s): N28.9 - DISORDER OF KIDNEY AND URETER, UNSPECIFIED Status: Chronic Priority: Medium Current Visit: Yes Annotation/Comment:: BUN and creatinine were normal with history of stage III renal insufficiency per [facility] records. (17) Heart murmur SNOMED Code(s): 19379444 Code(s): R01.1 - CARDIAC MURMUR, UNSPECIFIED Status: Chronic Priority: High Current Visit: Yes Annotation/Comment:: Severe mitral valve insufficiency based on clinical exam today. Note NO CODE STATUS with echocardiogram not to be performed. (18) Hypothyroidism (acquired) SNOMED Code(s): 508833468 Code(s): E03.9 - HYPOTHYROIDISM, UNSPECIFIED Status: Chronic Priority: Medium Current Visit: Yes Annotation/Comment:: TSH somewhat elevated. Increase Synthroid supplementation especially in light of newly initiated magnesium oxide therapy. TSH should be repeated in about 4 weeks. - Problem List Review Problem List Initiated/Reviewed/Updated: Yes - My Orders Last 24 Hours: My Active Orders 10/01/19 18:00 Ferrous Sulfate 325 mg PO QPM Potassium Chloride [Klor-Con M20] 20 meq PO BID 10/01/19 Dinner Fluid Restriction [DIET] 10/02/19 05:11 EKG Documentation Completion [RC] ASDIRECTED Chest 2V [CR] Routine 10/02/19 10:30 metOLazone [Zaroxolyn] 2.5 mg PO DAILY 10/02/19 12:00 Furosemide [Lasix] 40 mg IVPUSH Q8H 10/02/19 13:44 Consult to Case Management/Battery Recharger [CONS] Routine - Assessment Assessment:: As above - Plan Plan:: As above. Extensive precautions were given to the patient, who is in agreement with the treatment plan. Note extended hospitalization required secondary to his refractory CHF, etc. as above. He does need an additional 48 hours of inpatient/acute care secondary to multiple health issues as above. Planned hospital discharge depending on his clinical course with patient to be discharged back to [facility]. Jenny solis physician assumes care in the a.m. Consider repeat chest x-ray and blood work prior to patient's discharge in 2 days as above.
[2019-10-02] MEDS: Ferrous Sulfate 325 MG Tab PO SCH (18:20)
[2019-10-02] MEDS: Magnesium Oxide 400 MG Tab PO SCH (18:21)
[2019-10-02] MEDS: Simvastatin 20 MG Tab PO SCH (19:34)
[2019-10-03] MEDS: Albuterol/Ipratropium 3.0-0.5 MG/3 ML Neb Soln NEB SCH ×3 (01:04→13:59)
[2019-10-03] MEDS: cefTRIAXone 1 GM in Sodium Chloride 0.9% 100 ML IV SCH (04:39)
[2019-10-03] MEDS: Furosemide 40 MG/4 ML VIAL IVPUSH SCH ×2 (04:39→11:35)
[2019-10-03] MEDS: Sodium Chloride 0.9% 10 ML Syringe FLUSH PRN ×3 (04:39→11:35)
[2019-10-03] MEDS: Sodium Chloride 0.9% 10 ML Syringe FLUSH SCH (04:40)
[2019-10-03] MEDS: Levofloxacin/Dextrose 5%-Water 500 MG in Premix Bag 1 BAG IV SCH (05:29)
[2019-10-03] MEDS: Tiotropium Inhaler 18 MCG Inhalation Powder Cap Kit of 5 INH SCH (09:22)
[2019-10-03] MEDS: Metolazone 2.5 MG Tab PO SCH (09:22)
[2019-10-03] MEDS: Apixaban 2.5 MG Tab PO SCH (09:22)
[2019-10-03] MEDS: Omeprazole 20 MG Cap.CR PO SCH (09:23)
[2019-10-03] MEDS: Trolamine Salicylate/Aloe Vera 10% Crm 85 GM Tube TOP SCH ×2 (09:23→11:35)
[2019-10-03] MEDS: Acetaminophen 325 MG Tab PO SCH (09:23)
[2019-10-03] MEDS: Isosorbide Mononitrate 30 MG Tab.ER PO SCH (09:23)
[2019-10-03] MEDS: Levothyroxine 50 MCG Tab PO SCH (09:23)
[2019-10-03] MEDS: Dextromethorphan/guaiFENesin 600-30 MG Tab.ER PO SCH (09:24)
[2019-10-03] MEDS: Losartan 50 MG Tab PO SCH (09:24)
[2019-10-03] MEDS: Potassium Chloride 20 MEQ Tab.ER PO SCH (09:24)
[2019-10-03] MEDS: Budesonide 0.5 MG/2 ML Neb Susp NEB SCH (09:24)
--- NOTE | 2019-10-03 13:26 | PCM.DCSUM1 ---
Discharge Summary - Hospital Course Free Text/Narrative:: Pt admitted per Dr Peterson for pneumonia and CHF Also noted to have elevated troponin Pt placed on LAsix for CHF and antibiotics for pneumonia Pt given NTG paste for elevated troponin Pt will be d/c'd back to [facility] Diagnosis: Stroke: No - Discharge Data Discharge Date: 10/03/19 Discharge Disposition: DC/Tfer to SNF 03 Condition: Good - Referral to Home Health Primary Care Physician: Freddie Townsend MD - Discharge Diagnosis/Problem(s) (1) Acute [place] SNOMED Code(s): 57667594 ICD Code: I21.9 - ACUTE MYOCARDIAL INFARCTION, UNSPECIFIED Status: Acute Priority: High Current Visit: Yes Onset Date: 09/29/19 Problem Details: Continue comfort care with no further aggressive cardiac workup, etc. per the patient and his family's request as below. Qualifiers: Myocardial infarction type: non-ST elevation myocardial infarction Qualified Code(s): I21.4 - Non-ST elevation (NSTEMI) myocardial infarction (2) D-dimer, elevated SNOMED Code(s): 568978771 ICD Code: R79.89 - OTHER SPECIFIED ABNORMAL FINDINGS OF BLOOD CHEMISTRY Status: Acute Priority: High Current Visit: Yes Onset Date: 09/28/19 Problem Details: No direct clinical evidence of a DVT or PE. CTA of the chest using PE protocol was conducted shortly after admission and was negative for PE. Venous Doppler studies of the lower extremities were also negative on 09/29. Note current Eliquis therapy. (3) Pneumonia SNOMED Code(s): 601692365 ICD Code: J18.9 - PNEUMONIA, UNSPECIFIED ORGANISM Status: Acute Priority : High Current Visit: Yes Onset Date: 09/28/19 Problem Details: Pt has been adequately treate dwith IV antibiotics does not require further PO antibiotics Qualifiers: Pneumonia type: due to unspecified organism Laterality: bilateral Lung location: unspecified part of lung Qualified Code(s): J18.9 - Pneumonia, unspecified organism (4) CHF (congestive heart failure) SNOMED Code(s): 43113320 ICD Code: I50.9 - HEART FAILURE, UNSPECIFIED Status: Chronic Priority: High Current Visit: Yes Problem Details: Pt will be discharged on oral medications Qualifiers: Heart failure type: unspecified Heart failure chronicity: acute on chronic Qualified Code(s): I50.9 - Heart failure, unspecified - Patient Instructions Diet: Regular Diet as Tolerated Activity: As Tolerated Showering/Bathing: May Shower - Discharge Plan *PRESCRIPTION DRUG MONITORING PROGRAM REVIEWED*: Not Applicable *COPY OF PRESCRIPTION DRUG MONITORING REPORT IN PATIENT SOPHIA: Not Applicable Prescriptions/Med Rec: Furosemide [Lasix] 20 mg PO BID #60 tab Home Medications: Home Meds Acetaminophen [Tylenol] 650 mg PO DAILY 09/28/19 [History] Albuterol Sulfate 2.5 mg IH QID PRN 09/28/19 [History] Apixaban [Eliquis] 2.5 mg PO BID 09/28/19 [History] Budesonide/Formoterol Fumarate [Symbicort 160-4.5 Mcg Inhaler] 2 puff INH BID [History] Glucosam/Chond/Collagen/Hyalur [Glucosamine Chondroitin] 1 cap PO BID 09/28/19 [ History] Levothyroxine 25 mcg PO DAILY 09/28/19 [History] Losartan Potassium 50 mg PO DAILY 09/28/19 [History] Omeprazole Magnesium [Prilosec Otc] 20 mg PO DAILY 09/28/19 [History] Potassium Chloride 20 meq PO DAILY 09/28/19 [History] Simvastatin 40 mg PO BEDTIME 09/28/19 [History] Sodium Fluoride [Prevident] 56 gm DT DAILY 09/28/19 [History] Tiotropium [place] [Spiriva Respimat] 1 cap IH DAILY 09/28/19 [History] Torsemide [Demadex] 20 mg PO BID 09/28/19 [History] Trolamine Salicylate [Arthricream] 1 applic TOP QID 09/28/19 [History] guaiFENesin [Mucinex] 600 mg PO Q12HR 09/28/19 [History] Furosemide [Lasix] 20 mg PO BID #60 tab 10/03/19 [Rx] Oxygen Therapy Mode: Nasal Cannula Oxygen Flow Rate (L/min): 2 Maintain SpO2% greater than: 90 Forms: ED Department Discharge Referrals: Freddie Townsend MD [Primary Care Provider] - - Discharge Summary/Plan Comment DC Time >30 min.: No - General Info Date of Service: 10/03/19 - Review of Systems General: Reports: Weakness Pulmonary: Reports: Shortness of Breath Cardiovascular: Reports: No Symptoms Gastrointestinal: Reports: No Symptoms Musculoskeletal: Reports: Joint Pain - Patient Data Vitals - Most Recent: Last Vital Signs Temp 36.4 C 10/03/19 08:00 Pulse 77 10/03/19 08:00 Resp 21 H 10/03/19 08:00 BP 142/64 H 10/03/19 09:24 Pulse Ox 93 L 10/03/19 08:00 Weight - Most Recent: 60.419 kg I&O - Last 24 hours: Intake & Output 10/03/19 10/03/19 10/03/19 02:59 10:59 18:59 Intake Total 520 600 Output Total 950 1650 Balance -430 -1050 TRACY Results - Last 24 hrs: Microbiology 09/28/19 02:40 Aerobic Blood Culture - Final Blood - Venous - Lab Draw NO GROWTH AFTER 5 DAYS Anaerobic Blood Culture - Final NO GROWTH AFTER 5 DAYS 09/28/19 02:40 Aerobic Blood Culture - Final Blood - Venous NO GROWTH AFTER 5 DAYS Anaerobic Blood Culture - Final NO GROWTH AFTER 5 DAYS Med Orders - Current: Current Medications Acetaminophen (Tylenol) 650 mg PO DAILY [facility] Last Admin: 10/03/19 09:23 Dose: 650 mg Acetaminophen (Tylenol) 650 mg PO Q4H PRN PRN Reason: Pain/Fever Last Admin: 10/02/19 05:54 Dose: 650 mg Albuterol (Proventil Neb Soln) 2.5 mg NEB Q2H PRN PRN Reason: Dyspnea Last Admin: 09/29/19 23:05 Dose: 2.5 mg Albuterol/Ipratropium (Duoneb 3.0-0.5 Mg/3 Ml) 3 ml NEB Q4HRRT PRN PRN Reason: Dyspnea Last Admin: 10/01/19 00:41 Dose: 3 ml Albuterol/Ipratropium (Duoneb 3.0-0.5 Mg/3 Ml) 3 ml NEB Q6HRRT [facility] Last Admin: 10/03/19 09:24 Dose: 3 ml Apixaban (Eliquis) 2.5 mg PO BID [facility] Last Admin: 10/03/19 09:22 Dose: 2.5 mg Budesonide (Pulmicort) 0.5 mg NEB BIDRT [facility] Last Admin: 10/03/19 09:24 Dose: 0.5 mg Ferrous Sulfate (Ferrous Sulfate) 325 mg PO QPM [facility] Last Admin: 10/02/19 18:20 Dose: 325 mg Furosemide (Lasix) 40 mg IVPUSH Q8H [facility] Last Admin: 10/03/19 11:35 Dose: 40 mg Guaifenesin/Dextromethorphan (Mucinex Dm Er 600-30 Mg) 1 tab PO BID [facility] Last Admin: 10/03/19 09:24 Dose: 1 tab Ceftriaxone Sodium 1 gm/ (Sodium Chloride) 100 mls @ 200 mls/hr IV Q12H [facility] Last Admin: 10/03/19 04:39 Dose: 200 mls/hr Levofloxacin/Dextrose 500 mg/ (Premix) 100 mls @ 100 mls/hr IV Q24H [facility] Last Admin: 10/03/19 05:29 Dose: 100 mls/hr Isosorbide Mononitrate (Imdur) 30 mg PO DAILY [facility] Last Admin: 10/03/19 09:23 Dose: 30 mg Levothyroxine Sodium (Synthroid) 50 mcg PO ACBREAKFAST [facility] Last Admin: 10/03/19 09:23 Dose: 50 mcg Losartan Potassium (Cozaar) 50 mg PO DAILY [facility] Last Admin: 10/03/19 09:24 Dose: 50 mg Magnesium Oxide (Magnesium Oxide) 400 mg PO QPM [facility] Last Admin: 10/02/19 18:21 Dose: 400 mg Metolazone (Zaroxolyn) 2.5 mg PO DAILY [facility] Last Admin: 10/03/19 09:22 Dose: 2.5 mg Omeprazole (Omeprazole) 20 mg PO ACBREAKFAST [facility] Last Admin: 10/03/19 09:23 Dose: 20 mg Potassium Chloride (Klor-Con M20) 20 meq PO BID [facility] Last Admin: 10/03/19 09:24 Dose: 20 meq Simvastatin (Zocor) 40 mg PO BEDTIME [facility] Last Admin: 10/02/19 19:34 Dose: 40 mg Sodium Chloride (Saline Flush) 10 ml FLUSH ASDIRECTED PRN PRN Reason: Keep Vein Open Last Admin: 10/03/19 11:35 Dose: 10 ml Sodium Chloride (Saline Flush) 10 ml FLUSH Q12H [facility] Last Admin: 10/03/19 04:40 Dose: Not Given Temazepam (Restoril) 15 mg PO BEDTIME PRN PRN Reason: Insomnia Last Admin: 10/01/19 20:06 Dose: 15 mg Tiotropium [place] (Spiriva Handihaler) 18 mcg INH DAILY [facility] Last Admin: 10/03/19 09:22 Dose: 1 inhalation Tramadol HCl (Ultram) 50 mg PO Q6H PRN PRN Reason: pain Last Admin: 10/02/19 01:31 Dose: 50 mg Trolamine Salicylate (Aspercreme 10%) 1 gm TOP QID [facility] Last Admin: 10/03/19 11:35 Dose: 1 applic Discontinued Medications Albuterol/Ipratropium (Duoneb 3.0-0.5 Mg/3 Ml) 3 ml NEB ONETIME ONE Stop: 09/28/19 02:27 Last Admin: 09/28/19 03:13 Dose: Not Given Budesonide (Pulmicort) 0.5 mg NEB ONETIME ONE Stop: 09/28/19 02:27 Last Admin: 09/28/19 02:33 Dose: 0.5 mg Furosemide (Lasix) 40 mg IVPUSH Q8H [facility] Last Admin: 09/29/19 12:31 Dose: 40 mg Furosemide (Lasix) 20 mg IVPUSH Q12HR [facility] Last Admin: 10/02/19 08:02 Dose: 20 mg Ceftriaxone Sodium 1 gm/ (Sodium Chloride) 100 mls @ 200 mls/hr IV ONETIME ONE Stop: 09/28/19 03:53 Last Admin: 09/28/19 03:54 Dose: 200 mls/hr Iopamidol (Isovue-370 (76%)) 100 ml IVPUSH ONETIME ONE Stop: 09/28/19 08:43 Last Admin: 09/28/19 09:30 Dose: 100 ml Nitroglycerin (Nitro-Bid 2%) 0.5 gm TOP Q6H [facility] Last Admin: 09/29/19 15:53 Dose: 0.5 gm Potassium Chloride (Klor-Con M20) 20 meq PO TIDMEALS [facility] Last Admin: 10/01/19 07:48 Dose: 20 meq - Exam Quality Assessment: Reports: Supplemental Oxygen General: Reports: Alert Lungs: Reports: Decreased Breath Sounds Cardiovascular: Reports: Regular Rate GI/Abdominal Exam: Non-Tender Extremities: Limited Range of Motion
== END 2019-10-03 15:45 | DRG 280 ==
LOC: LL.ED 02:10 → UNDOADMIN 03:41 → LL.MS 03:41
PROVIDERS: ADMIT Family Medicine; ATTEND Family Medicine
DX: I13.0 Hypertensive heart and chronic kidney disease with heart failure and stage 1 through stage 4 chronic kidney disease, or unspecified chronic kidney disease (principal); I21.4 Non-ST elevation (NSTEMI) myocardial infarction; J18.9 Pneumonia, unspecified organism; J44.0 Chronic obstructive pulmonary disease with (acute) lower respiratory infection; I48.11 Longstanding persistent atrial fibrillation; J44.1 Chronic obstructive pulmonary disease with (acute) exacerbation; R64 Cachexia; Z51.5 Encounter for palliative care; I50.9 Heart failure, unspecified; R79.89 Other specified abnormal findings of blood chemistry; R01.1 Cardiac murmur, unspecified; D64.9 Anemia, unspecified; E78.5 Hyperlipidemia, unspecified; R79.1 Abnormal coagulation profile; I11.0 Hypertensive heart disease with heart failure; E83.42 Hypomagnesemia; H54.7 Unspecified visual loss; H91.90 Unspecified hearing loss, unspecified ear; H91.10 Presbycusis, unspecified ear; I48.91 Unspecified atrial fibrillation; M15.0 Primary generalized (osteo)arthritis; I49.3 Ventricular premature depolarization; K21.9 Gastro-esophageal reflux disease without esophagitis; N18.3 Chronic kidney disease, stage 3 (moderate); E03.9 Hypothyroidism, unspecified; I34.0 Nonrheumatic mitral (valve) insufficiency; Z87.01 Personal history of pneumonia (recurrent); Z99.81 Dependence on supplemental oxygen; Z79.899 Other long term (current) drug therapy; K40.90 Unilateral inguinal hernia, without obstruction or gangrene, not specified as recurrent; D50.8 Other iron deficiency anemias; E88.09 Other disorders of plasma-protein metabolism, not elsewhere classified; E78.00 Pure hypercholesterolemia, unspecified; M19.90 Unspecified osteoarthritis, unspecified site; N40.0 Benign prostatic hyperplasia without lower urinary tract symptoms; Z95.0 Presence of cardiac pacemaker; Z79.890 Hormone replacement therapy; Z87.891 Personal history of nicotine dependence; Z68.20 Body mass index [BMI] 20.0-20.9, adult
CPT/HCPCS: 36415; 71045; 71046; 71275; 80048; 80053; 80061; 82272; 82550; 82553; 82607; 82728; 83036; 83540; 83550; 83605; 83735; 83880; 84443; 84484; 85025; 85379; 85610; 85730; 87040; 87070; 87081; 87205; 87338; 87430; 87641; 87804; 93005; 93970; 94640; 96365; 99285-25; A9270-GY; J0696; J1940; J1956; J7050; J7613-GY; J7620-GY; Q9967

== ENCOUNTER 2019-11-30 06:21 | Emergency (ER) | payer OTHER ==
--- NOTE | 2019-11-30 07:01 | EDM.PDOC ---
ED HPI GENERAL MEDICAL PROBLEM - General Chief Complaint: General Stated Complaint: SOB Time Seen by Provider: 11/30/19 06:40 Source of Information: Reports: Patient, Senior Living Records History Limitations: Reports: No Limitations - History of Present Illness INITIAL COMMENTS - FREE TEXT/NARRATIVE: Pt sent to ER from care center after having a coughing/choking episode Pt has hx/o COPD and is on oxygen at care center No fever No chest pain Onset: Today, Sudden Duration: Hour(s):, Resolved Prior to Arrival Location: Reports: Chest - Related Data Allergies Allergy/AdvReac Type Severity Reaction Status Date / Time No Known Allergies Allergy Verified 09/28/19 02:17 Home Meds: Home Meds Acetaminophen [Tylenol] 650 mg PO DAILY 09/28/19 [History] Albuterol Sulfate 2.5 mg IH QID PRN 09/28/19 [History] Apixaban [Eliquis] 2.5 mg PO BID 09/28/19 [History] Budesonide/Formoterol Fumarate [Symbicort 160-4.5 Mcg Inhaler] 2 puff INH BID [History] Glucosam/Chond/Collagen/Hyalur [Glucosamine Chondroitin] 1 cap PO BID 09/28/19 [ History] Levothyroxine 25 mcg PO DAILY 09/28/19 [History] Losartan Potassium 50 mg PO DAILY 09/28/19 [History] Omeprazole Magnesium [Prilosec Otc] 20 mg PO DAILY 09/28/19 [History] Potassium Chloride 20 meq PO DAILY 09/28/19 [History] Simvastatin 40 mg PO BEDTIME 09/28/19 [History] Sodium Fluoride [Prevident] 56 gm DT DAILY 09/28/19 [History] Tiotropium [place] [Spiriva Respimat] 1 cap IH DAILY 09/28/19 [History] Torsemide [Demadex] 20 mg PO BID 09/28/19 [History] Trolamine Salicylate [Arthricream] 1 applic TOP QID 09/28/19 [History] guaiFENesin [Mucinex] 600 mg PO Q12HR 09/28/19 [History] Furosemide [Lasix] 20 mg PO BID #60 tab 10/03/19 [Rx] Past Medical History HEENT History: Reports: Hard of Hearing, Impaired Vision, Other (See Below) Other HEENT History: He wears glasses. 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 Hematologic History: Reports: None - Past Surgical History HEENT Surgical History: Reports: Oral Surgery, Other (See Below) Other HEENT Surgeries/Procedures: Multiple teeth extractions with partial dentures uppers and lowers. Cardiovascular Surgical History: Reports: Pacer - History Comment History Comment: Only limited medical records available from snf with patient being a somewhat poor historian secondary to his severe presbycusis, etc. Social & Family History - Family History Family Medical History: Unobtainable - Tobacco Use Smoking Status *Q: Former Smoker Used Tobacco, but Quit: Yes Month/Year Tobacco Last Used: 09/2009 - Caffeine Use Caffeine Use: Reports: None - Recreational Drug Use Recreational Drug Use: No - Living Situation & Occupation Living situation: Reports: (2), Extended Care Facility ([facility]) ED ROS GENERAL - Review of Systems Review Of Systems: See Below Respiratory: Reports: Shortness of Breath ED EXAM, GENERAL - Physical Exam Exam: See Below Exam Limited By: No Limitations General Appearance: No Apparent Distress Throat/Mouth: Normal Oropharynx Neck: Supple Respiratory/Chest: Decreased Breath Sounds Cardiovascular: Regular Rate, Rhythm GI/Abdominal: Non-Tender Course - Vital Signs Last Recorded V/S: Last Vital Signs Temp 98.4 F 11/30/19 06:28 Pulse 77 11/30/19 06:28 Resp 24 H 11/30/19 06:28 BP 152/75 H 11/30/19 06:28 Pulse Ox 95 11/30/19 06:28 - Orders/Labs/Meds Orders: Active Orders 24 hr Category Date Time Status Chest 1V Frontal [CR] Stat Exams 11/30/19 06:31 Taken Labs: Laboratory Tests 11/30/19 Range/Units 06:35 WBC 8.5 (4.0-10.2) K/uL RBC 3.56 L (4.33-5.41) M/uL Hgb 10.7 L (13.1-16.8) g/dL Hct 34.4 L (39.0-49.0) % MCV 96.6 (84.0-98.0) fL MCH 30.1 (28.2-33.3) pg MCHC 31.1 L (31.7-36.0) g/dL RDW 16.3 H (11.2-14.1) % Plt Count 232 (150-350) K/uL Neut % (Auto) 86.0 H (45.0-80.0) % Lymph % (Auto) 5.0 L (10.0-50.0) % [place] % (Auto) 8.3 (2.0-14.0) % Eos % (Auto) 0.6 (0.0-5.0) % Baso % (Auto) 0.1 (0.0-2.0) % Neut # (Auto) 7.27 H (1.40-7.00) K/uL Lymph # (Auto) 0.42 L (0.50-3.50) K/uL [place] # (Auto) 0.70 (0.00-1.00) K/uL Eos # (Auto) 0.05 (0.00-0.50) K/uL Baso # (Auto) 0.01 (0.00-0.20) K/uL - Re-Assessments/Exams Free Text/Narrative Re-Assessment/Exam: 11/30/19 06:59 Pt stable in ER Departure - Departure Time of Disposition: 07:00 Disposition: DC/Tfer to SNF 03 Clinical Impression: COPD (chronic obstructive pulmonary disease) Qualifiers: COPD type: unspecified COPD Qualified Code(s): J44.9 - Chronic obstructive pulmonary disease, unspecified - Discharge Information *PRESCRIPTION DRUG MONITORING PROGRAM REVIEWED*: Not Applicable *COPY OF PRESCRIPTION DRUG MONITORING REPORT IN PATIENT SOPHIA: Not Applicable Instructions: Cough, Adult, [id number], Chronic Obstructive Pulmonary Disease Exacerbation, [id number] Additional Instructions: Follow up in clinic Sepsis Event Note - Evaluation Sepsis Screening Result: No Definite Risk - Focused Exam Vital Signs: Vital Signs Temp Pulse Resp BP Pulse Ox 11/30/19 06:28 98.4 F 77 24 H 152/75 H 95 Date Exam was Performed: 11/30/19 Time Exam was Performed: 06:57 - My Orders Last 24 Hours: My Active Orders 11/30/19 06:31 Chest 1V Frontal [CR] Stat - Assessment/Plan Last 24 Hours: My Active Orders 11/30/19 06:31 Chest 1V Frontal [CR] Stat
== END 2019-11-30 10:05 ==
LOC: LL.ED 06:21
DX: J44.9 Chronic obstructive pulmonary disease, unspecified (principal); I48.91 Unspecified atrial fibrillation; E78.00 Pure hypercholesterolemia, unspecified; K21.9 Gastro-esophageal reflux disease without esophagitis; Z79.899 Other long term (current) drug therapy; Z79.01 Long term (current) use of anticoagulants; Z87.891 Personal history of nicotine dependence
CPT/HCPCS: 36415; 71045; 85025; 99283; 99285-25

== ENCOUNTER 2020-09-09 12:23 | Emergency (ER) | payer MEDICARE, OTHER ==
[2020-09-09] MEDS ORDERED: Sodium Chloride 0.9% 10 ML Syringe FLUSH PRN (12:24)
[2020-09-09] MEDS ORDERED: Famotidine 20 MG/2 ML SDV IVPUSH ONE (12:24)
--- NOTE | 2020-09-09 12:24 | EDM.PDOC ---
ED HPI GENERAL MEDICAL PROBLEM - General Chief Complaint: General Stated Complaint: SOB Time Seen by Provider: 09/09/20 12:24 Source of Information: Reports: Patient, Penitentiary Records, Old Records ([facility] EMR. No paper hospital chart available.) History Limitations: Reports: No Limitations - History of Present Illness INITIAL COMMENTS - FREE TEXT/NARRATIVE: The patient was brought to the emergency room via transport vehicle from [facility] in [place] for evaluation of increasing dyspnea and hypoxia since earlier this morning with O2 sat of only 82% on 5 L/min by nasal cannula at rest prior to transfer to this facility. Note that the patient is normally O2 dependent at 2 L/min by nasal cannula. He is a somewhat poor historian. The patient denies any chest pain/pressure, heart flutter, dizziness, orthostasis, orthopnea, diaphoresis, paresthesias, recent decreased exercise tolerance, or any other anginal-type symptoms, although his overall activity level is low secondary to his significant COPD. No recent history of abdominal pain, heartburn, nausea, diarrhea, melena, gross hematochezia, or any food intolerance, including fatty foods, etc.. No apparent recent gross hematuria, colic, or other UTI symptoms. The patient also denies any recent fever or known exposure to infraction with patient testing negative for COVID-19 on 09/05/2020 and overall stable chronic nonproductive cough, wheezing, dyspnea, etc.. He denies any specific pain or discomfort. Onset: Today, Gradual, Unknown/Unsure Duration: Other (No pain) Severity: Moderate (Chronic dyspnea) Improves with: Reports: None Worsens with: Reports: None Context: Reports: Other (As above). Denies: Sick Contact, Trauma Associated Symptoms: Reports: Cough, Shortness of Breath (Chronic). 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 (see below) (None) - Related Data Allergies Allergy/AdvReac Type Severity Reaction Status Date / Time No Known Allergies Allergy Verified 09/09/20 14:27 Home Meds: Home Meds Albuterol Sulfate 2.5 mg IH QID PRN 09/28/19 [History] Apixaban [Eliquis] 2.5 mg PO BID@09/28/19 [History] Budesonide/Formoterol Fumarate [Symbicort 160-4.5 Mcg Inhaler] 2 puff INH BID@,09/28/19 [History] Levothyroxine 50 mcg PO DAILY@05009/28/19 [History] Losartan Potassium 50 mg PO DAILY@49909/28/19 [History] Omeprazole Magnesium [Prilosec Otc] 20 mg PO DAILY@49909/28/19 [History] Potassium Chloride 20 meq PO DAILY@49909/28/19 [History] Simvastatin 40 mg PO DAILY@17009/28/19 [History] Torsemide [Demadex] 40 mg PO DAILY 09/28/19 [History] Acetaminophen [Tylenol] 650 mg PO Q4H PRN 11/30/19 [History] Fluoride (Sodium) [Prevident] 1 applic DT DAILY PRN 11/30/19 [History] Menthol [Cough Drops] 1 lozenge PO Q4HR PRN 11/30/19 [History] Non-Formulary Medication [NF Drug] 1 packet PO DAILY 11/30/19 [History] Tiotropium [Spiriva HandiHaler] 18 mcg INH DAILY@49911/30/19 [History] Trolamine Salicylate/Aloe Vera [Aspercreme 10% Cream] 1 applic TP QID 11/30/19 [History] Acetaminophen [Tylenol Arthritis] 1 tab PO BID@,09/09/20 [History] Methyl Salicylate/Menthol [Muscle Rub] 1 applic TOP QID PRN 09/09/20 [History] Sennosides/Docusate Sodium [Senna Plus 8.6-50 mg Tablet] 1 tab PO BID@,09/09/20 [History] Sodium Chloride 0.9% 1 vial INH BID PRN 09/09/20 [History] Torsemide 30 mg PO DAILY@1200 09/09/20 [History] Trolamine Salicylate/Aloe Vera [Aspercreme 10% Cream] 1 applic TOP QID PRN 09/09/20 [History] guaiFENesin [Guaifenesin] 200 mg PO BID@,09/09/20 [History] Past Medical History HEENT History: Reports: Cataract, Hard of Hearing, Impaired Vision, Other (See Below). Denies: Allergic Rhinitis Other HEENT History: He wears glasses. 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 Cardiovascular History: Reports: Afib, Arrhythmia, CAD, Cardiomyopathy, Heart Failure, Heart Murmur, High Cholesterol, Hypertension, ID, Pacemaker, Other (See Below) Other Cardiovascular History: Severe mitral valve insufficiency by clinical exam. PVCs with probable acute ID on 09/28/2019. Complete AV block with pacemaker placement. History of D-dimer elevation with negative work-up as below. Respiratory History: Reports: Bronchitis, Recurrent, COPD, Intubation, Previous, Pneumonia, Recurrent, Pulmonary Fibrosis, Other (See Below). 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 Bilateral pulmonary nodules and/or granulomatosis disease by CTA of the chest on 09/28/2019. Gastrointestinal History: Reports: Chronic Constipation, GERD Genitourinary History: Reports: BPH, Chronic Renal Insuffiency Musculoskeletal History: Reports: Arthritis, Fracture, Osteoarthritis, Other (See Below) Other Musculoskeletal History: L1 vertebral body compression fracture. Scoliosis. 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 Neurological History: Reports: Other (See Below) Other Neuro History: Insomnia. 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 Hypoalbuminemia. Hematologic History: Reports: Anemia, Iron Deficiency, Other (See Below) - Past Surgical History HEENT Surgical History: Reports: Oral Surgery, Other (See Below) Other HEENT Surgeries/Procedures: Multiple teeth extractions with partial dentures uppers and lowers. Cardiovascular Surgical History: Reports: Pacer - History Comment History Comment: Only limited medical records available from long-term with patient being a somewhat poor historian secondary to his severe presbycusis, etc. Social & Family History - Family History Family Medical History: Unobtainable - Tobacco Use Tobacco Use Status *Q: Former Tobacco User Tobacco Use Within Last Twelve Months: No Years of Tobacco use: 30 Packs/Tins Daily: 1 Used Tobacco, but Quit: No Smoking Cessation Information Provided To Patient: Yes Second Hand Smoke Exposure: No Second Hand Smoke Education Provided: No - Caffeine Use Caffeine Use: Reports: None - Living Situation & Occupation Living situation: Reports: (2), Extended Care Facility ([facility] in [facility] ED ROS GENERAL - Review of Systems Review Of Systems: Comprehensive ROS is negative, except as noted in HPI. ED EXAM, GENERAL - Physical Exam Exam: See Below Exam Limited By: No Limitations General Appearance: Alert, WD/WN, No Apparent Distress, Cachetic (Moderate generalized likely secondary to his COPD) Eye Exam: Bilateral Eye: EOMI, Normal Inspection (No nystagmus), PERRL Ears: Normal External Exam, Hearing Loss (Moderate to severe bilateral presbycusis with the patient only wearing his right hearing aid today.) Nose: Normal Inspection, Normal Mucosa, No Blood Throat/Mouth: Normal Inspection, Normal Lips, Normal Teeth (Partial dentures uppers and lowers), Normal Gums, Normal Oropharynx, Normal Voice, No Airway Compromise. No: Dysphagia, Inflammation, Perioral Cyanosis Head: Atraumatic, Normocephalic. No: Facial Swelling, Facial Tenderness, Sinus Tenderness Neck: Supple, Non-Tender, Full Range of Motion, Carotid Bruit (Mild bilateral carotid bruits). No: Lymphadenopathy (L), Lymphadenopathy (R), Thyromegaly Respiratory/Chest: Chest Non-Tender, Respiratory Distress (Mild? Stable chronic), Decreased Breath Sounds (Diffuse throughout stable chronic with decreased breath sounds particularly in the bases), Rales (Moderate diffuse bilateral), Rhonchi (Mild diffuse bilateral), Wheezing (Mild diffuse bilateral), Accessory Muscle Use (Mild intercostal retractions), Retractions (As above). No: Pleural Rub Cardiovascular: Normal Peripheral Pulses, Regular Rate, Rhythm, No Edema, No Gallop, No JVD, No Rub, Systolic Murmur (3/6 DEVIKA of the mitral valve radiating to the aortic region). No: Gallop/S3, Gallop/S4, Friction Rub Peripheral Pulses: 2+: Radial (L), Radial (R), Dorsalis Pedis (L), Dorsalis Pedis (R) GI/Abdominal: Normal Bowel Sounds, Soft, Non-Tender, No Organomegaly, No Dis tention, No Abnormal Bruit, No Mass. No: Guarding (Male) Exam: Deferred Rectal (Males) Exam: Deferred Back Exam: Full Range of Motion, Other (Mild to moderate kyphosis). No: CVA Tenderness (L), CVA Tenderness (R), Muscle Spasm, Paraspinal Tenderness, Vertebral Tenderness Extremities: Normal Inspection, Normal Range of Motion, Non-Tender, No Pedal Edema, Normal Capillary Refill. No: Adama's Sign Neurological: Alert, Oriented, CN II-XII Intact, Normal Cognition, Normal Gait, Normal Reflexes (Negative Babinski's), No Motor/Sensory Deficits, Other (Moderate to severe generalized weaknessstable by history) Psychiatric: Normal Affect, Normal Mood Skin Exam: Warm, Dry, Intact, Normal Color, No Rash. No: Diaphoretic, Wound/Incision Lymphatic: No Adenopathy #1 Interpretation EKG Date: 09/09/20 Time: 12:48 Rhythm: Other (100% paced with resolution of previous atrial fibrillation with no paced beats at that time.) Rate (Beats/Min): 60 Comparison: Change From Previous EKG (As above since 10/02/2019.) EKG Interpretation Comments: 1. No acute ischemic changes 2. 100% paced rhythm with previous atrial fibrillation Course - Vital Signs Last Recorded V/S: Last Vital Signs Temp 36.4 C 09/09/20 12:25 Pulse 63 09/09/20 14:34 Resp 20 09/09/20 14:34 BP 144/63 H 09/09/20 14:34 Pulse Ox 100 09/09/20 14:34 Vital Signs - 24 hr 09/09/20 09/09/20 09/09/20 12:25 12:40 12:45 Temperature [ 36.4 C Temporal] Pulse, 68 61 Peripheral [ Pulse Oximetry] Respiratory 18 22 H Rate Blood Pressure 128/58 L [Right Upper Arm] O2 Sat by Pulse 99 99 Oximetry O2 Sat by Pulse 95 99 Oximetry [ Nasal Cannula] 09/09/20 09/09/20 09/09/20 12:55 13:10 14:34 Temperature [ Temporal] Pulse, 61 60 63 Peripheral [ Pulse Oximetry] Respiratory 20 18 20 Rate Blood Pressure 126/58 L 118/55 L 144/63 H [Right Upper Arm] O2 Sat by Pulse 97 98 100 Oximetry O2 Sat by Pulse Oximetry [ Nasal Cannula] - Orders/Labs/Meds Orders: Active Orders 24 hr Category Date Time Status Chest 1V Frontal [CR] Stat Exams 09/09/20 12:25 Taken Isolation [COMM] Routine Oth 09/09/20 12:26 Active Obtain Past Medical Record [OM.PC] Urgent Oth 09/09/20 12:25 Active Peripheral IV Insertion Adult [OM.PC] Stat Oth 09/09/20 12:25 Ordered Resuscitation Status Stat Resus Stat 09/09/20 12:24 Ordered Labs: Laboratory Tests 09/09/20 09/09/20 09/09/20 Range/Units 12:41 12:41 12:41 WBC 7.0 (4.0-10.2) K/uL RBC 3.62 L (4.33-5.41) M/uL Hgb 11.5 L (13.1-16.8) g/dL Hct 36.3 L (39.0-49.0) % MCV 100.3 H D (84.0-98.0) fL MCH 31.8 (28.2-33.3) pg MCHC 31.7 (31.7-36.0) g/dL RDW 15.5 H (11.2-14.1) % Plt Count 150 (150-350) K/uL Neut % (Auto) 81.7 H (45.0-80.0) % Lymph % (Auto) 7.0 L (10.0-50.0) % [place] % (Auto) 10.6 (2.0-14.0) % Eos % (Auto) 0.4 (0.0-5.0) % Baso % (Auto) 0.3 (0.0-2.0) % Neut # (Auto) 5.73 (1.40-7.00) K/uL Lymph # (Auto) 0.49 L (0.50-3.50) K/uL [place] # (Auto) 0.74 (0.00-1.00) K/uL Eos # (Auto) 0.03 (0.00-0.50) K/uL Baso # (Auto) 0.02 (0.00-0.20) K/uL PT 12.4 H (9.5-12.0) SEC INR 1.2 APTT 29.1 (24.5-32.8) SEC D-Dimer, Quantitative 443 H (0-400) ng/mL Sodium (136-145) mmol/L Potassium (3.5-5.1) mmol/L Chloride (98-107) mmol/L Carbon Dioxide (21.0-32.0) mmol/L BUN (7-18) mg/dL Creatinine (0.51-1.17) mg/dL Est Cr Clr Drug Dosing Estimated GFR (MDRD) mL/min Glucose (74-106) mg/dL Lactic Acid (0.4-2.0) mmol/L Uric Acid (2.6-7.2) mg/dL Calcium (8.5-10.1) mg/dL Magnesium (1.8-2.4) mg/dL Total Bilirubin (0.2-1.0) mg/dL AST (15-37) U/L ALT (12-78) U/L Alkaline Phosphatase (46-116) IU/L Creatine Kinase (26-308) U/L Creatine Kinase Index (0.0-2.5) % CK-MB (CK-2) (0.00-3.60) ng/mL Troponin I (0.000-0.056) ng/mL NT-Pro-B Natriuret Pep (0-125) pg/mL Total Protein (6.4-8.2) g/dL Albumin (3.4-5.0) g/dL TSH, Ultra Sensitive (0.358-3.740) mIU/mL SARS-CoV-2 RNA (LIZETT) (NEGATIVE) 09/09/20 09/09/20 09/09/20 Range/Units 12:41 12:41 14:20 WBC (4.0-10.2) K/uL RBC (4.33-5.41) M/uL Hgb (13.1-16.8) g/dL Hct (39.0-49.0) % MCV (84.0-98.0) fL MCH (28.2-33.3) pg MCHC (31.7-36.0) g/dL RDW (11.2-14.1) % Plt Count (150-350) K/uL Neut % (Auto) (45.0-80.0) % Lymph % (Auto) (10.0-50.0) % [place] % (Auto) (2.0-14.0) % Eos % (Auto) (0.0-5.0) % Baso % (Auto) (0.0-2.0) % Neut # (Auto) (1.40-7.00) K/uL Lymph # (Auto) (0.50-3.50) K/uL [place] # (Auto) (0.00-1.00) K/uL Eos # (Auto) (0.00-0.50) K/uL Baso # (Auto) (0.00-0.20) K/uL PT (9.5-12.0) SEC INR APTT (24.5-32.8) SEC D-Dimer, Quantitative (0-400) ng/mL Sodium 136 (136-145) mmol/L Potassium 3.5 (3.5-5.1) mmol/L Chloride 96 L (98-107) mmol/L Carbon Dioxide 35.2 H (21.0-32.0) mmol/L BUN 30 H (7-18) mg/dL Creatinine 1.14 (0.51-1.17) mg/dL Est Cr Clr Drug Dosing TNP Estimated GFR (MDRD) > 60 mL/min Glucose 158 H (74-106) mg/dL Lactic Acid 1.6 (0.4-2.0) mmol/L Uric Acid 6.9 (2.6-7.2) mg/dL Calcium 9.6 (8.5-10.1) mg/dL Magnesium 1.7 L (1.8-2.4) mg/dL Total Bilirubin 0.7 (0.2-1.0) mg/dL AST 21 (15-37) U/L ALT 23 (12-78) U/L Alkaline Phosphatase 87 (46-116) IU/L Creatine Kinase 55 (26-308) U/L Creatine Kinase Index 4.2 H (0.0-2.5) % CK-MB (CK-2) 2.30 (0.00-3.60) ng/mL Troponin I 0.048 (0.000-0.056) ng/mL NT-Pro-B Natriuret Pep 65114 H (0-125) pg/mL Total Protein 7.2 (6.4-8.2) g/dL Albumin 3.6 (3.4-5.0) g/dL TSH, Ultra Sensitive 4.471 H (0.358-3.740) mIU/mL SARS-CoV-2 RNA (LIZETT) Negative (NEGATIVE) Microbiology 09/09/20 14:20 Influenza Type A Antigen Screen - Final Nasal, Unspecified NEGATIVE INFLUENZA A VIRUS AG REFERENCE RANGE: NEGATIVE Influenza Type B Antigen Screen - Final NEGATIVE INFLUENZA B VIRUS AG REFERENCE RANGE: NEGATIVE Meds: Medications Discontinued Medications Generic Name Dose Route Start Last Admin Trade Name Freq PRN Reason Stop Dose Admin Famotidine 40 mg 09/09/20 12:24 09/09/20 13:08 Pepcid IVPUSH 09/09/20 12:25 40 mg ONETIME ONE Administration Furosemide 60 mg 09/09/20 14:22 09/09/20 14:28 Lasix IVPUSH 09/09/20 14:23 60 mg NOW ONE Administration Sodium Chloride 10 ml 09/09/20 12:24 09/09/20 13:09 Saline Flush FLUSH 10 ml ASDIRECTED PRN Administration Keep Vein Open - Radiology Interpretation Free Text/Narrative:: court recording monitor shows nearly 100% paced rhythm with occasional independent breakthrough brief atrial fibrillation with no other no ectopy or arrhythmia. Chest x-ray, portable, shows moderate COPD and pulmonary fibrotic changes with mild to moderate bilateral pulmonary infiltrates especially in the left upper lobe.. Additional mild to moderate CHF including bilateral pleural effusions. Mild cardiomegaly with left-sided pacemaker noted. No pneumothorax. Mild prominence of the proximal aortic arch with additional mild aortic valve calcification. Departure - Departure Time of Disposition: 15:00 Disposition: DC/Tfer to Acute Hospital 02 Condition: Poor Clinical Impression: Peptic reflux disease, Need for comfort care, Heart murmur, Hypomagnesemia, Hypothyroidism (acquired) CHF (congestive heart failure) Qualifiers: Heart failure type: unspecified Heart failure chronicity: acute on chronic Qualified Code(s): I50.9 - Heart failure, unspecified Atrial fibrillation Qualifiers: Atrial fibrillation type: longstanding persistent Qualified Code(s): I48.11 - Longstanding persistent atrial fibrillation Anemia Qualifiers: Anemia type: iron deficiency Iron deficiency anemia type: other iron deficiency Qualified Code(s): D50.8 - Other iron deficiency anemias COPD (chronic obstructive pulmonary disease) Qualifiers: COPD type: unspecified COPD Qualified Code(s): J44.9 - Chronic obstructive pulmonary disease, unspecified Hypertension Qualifiers: Hypertension type: essential hypertension Qualified Code(s): I10 - Essential (primary) hypertension Hyperlipidemia Qualifiers: Hyperlipidemia type: unspecified Qualified Code(s): E78.5 - Hyperlipidemia, unspecified - Discharge Information *PRESCRIPTION DRUG MONITORING PROGRAM REVIEWED*: Not Applicable *COPY OF PRESCRIPTION DRUG MONITORING REPORT IN PATIENT SOPHIA: Not Applicable Referrals: Mireya Love PA [Primary Care Provider] - Forms: ED Department Discharge, [facility] Seps[facility] Event Note (ED) - Focused Exam Vital Signs: Vital Signs Temp Pulse Resp BP Pulse Ox Pulse Ox 09/09/20 14:34 63 20 144/63 H 100 09/09/20 13:10 60 18 118/55 L 98 09/09/20 12:55 61 20 126/58 L 97 09/09/20 12:45 99 09/09/20 12:40 61 22 H 99 09/09/20 12:25 36.4 C 68 18 128/58 L 99 95 - Problem List & Annotations (1) CHF (congestive heart failure) SNOMED Code(s): 31400338 Code(s): I50.9 - HEART FAILURE, UNSPECIFIED Status: Acute Priority: High Annotation/Comment:: Telephone consultation at 1:40 PM [address] the [facility] with subsequent telephone consultation at 1:[address] Celestino Rubio, hospitalist, who does accept the patient for direct admission, with no further treatment recommendations given. He is aware of initiation of IV Lasix therapy in this facility and patient's comfort care status. Ambulance transfer with vegetable cook accompaniment. No chest pain or anginal type symptoms with chest pain protocol not initiated in the emergency room. Hypoxia significantly improved prior to patient discharge with good O2 saturations with 3 L/min by nasal cannula. High-dose IV Lasix therapy initiated in the emergency room. Note comfort care with no further work-up per patient's request. Long history of chronic CHF. Qualifiers: Heart failure type: unspecified Heart failure chronicity: acute on chronic Qualified Code(s): I50.9 - Heart failure, unspecified (2) D-dimer, elevated SNOMED Code(s): 510854595 Code(s): R79.89 - OTHER SPECIFIED ABNORMAL FINDINGS OF BLOOD CHEMISTRY Status: Acute Priority: High Onset Date: 09/28/19 Annotation/Comment:: No direct clinical evidence of a DVT or PE with actually significantly improved D- dimer elevation since last evaluation in this facility on 09/28/2019. Note negative CTA of the chest on 09/28/19 and venous Doppler studies of the lower extremities on 09/29/2019 in this facility. The patient is currently under Eliquis therapy. (3) Hypomagnesemia SNOMED Code(s): 594385503 Code(s): E83.42 - HYPOMAGNESEMIA Status: Acute Priority: Medium Onset Date: 09/28/19 Annotation/Comment:: Continue to observe closely by accepting and regular providers with adjustment of medical therapy depending on his clinical course. Note IV Lasix therapy initiated in the emergency room with previous chronic diuretic therapy. (4) Atrial fibrillation SNOMED Code(s): 85584416 Code(s): I48.91 - UNSPECIFIED ATRIAL FIBRILLATION Status: Chronic Priority: High Annotation/Comment:: Currently treated with Eliquis. 100% paced rhythm today. No chest pain or anginal type symptoms. Note previous history of PVCs and third-degree AV block requiring pacemaker as above. Qualifiers: Atrial fibrillation type: longstanding persistent Qualified Code(s): I48.11 - Longstanding persistent atrial fibrillation (5) COPD (chronic obstructive pulmonary disease) SNOMED Code(s): 37996686 Code(s): J44.9 - CHRONIC OBSTRUCTIVE PULMONARY DISEASE, UNSPECIFIED Status: Chronic Priority: Medium Annotation/Comment:: O2 dependent COPD with normal requirement of 2 L/min by nasal cannula. Note increased hypoxia this morning likely secondary to CHF. Patient is afebrile with no leukocytosis. Influenza and COVID-19 test collected with results as above. No indication for antibiotic therapy at this time. Blood cultures were not collected. Note normal lactic acid level. Cannot rule out concomitant bronchitis or bilateral pneumonia secondary to his CHF. Qualifiers: COPD type: unspecified COPD Qualified Code(s): J44.9 - Chronic obstructive pulmonary disease, unspecified (6) Heart murmur SNOMED Code(s): 39651211 Code(s): R01.1 - CARDIAC MURMUR, UNSPECIFIED Status: Chronic Priority: High Annotation/Comment:: Severe mitral valve insufficiency based on clinical exam today. Note NO CODE STATUS with echocardiogram not to be performed. (7) Hyperlipidemia SNOMED Code(s): 74781626 Code(s): E78.5 - HYPERLIPIDEMIA, UNSPECIFIED Status: Chronic Priority: Medium Annotation/Comment:: Currently under therapy. Qualifiers: Hyperlipidemia type: unspecified Qualified Code(s): E78.5 - Hyperlipidemia, unspecified (8) Hypertension SNOMED Code(s): 74862529 Code(s): I10 - ESSENTIAL (PRIMARY) HYPERTENSION Status: Chronic Priority: Medium Annotation/Comment:: Blood pressure under good control in the emergency room. Continue medication adjustments during this hospitalization. Qualifiers: Hypertension type: essential hypertension Qualified Code(s): I10 - Essential (primary) hypertension (9) Hypoalbuminemia SNOMED Code(s): 952034553 Code(s): E88.09 - OTH DISORDERS OF PLASMA-PROTEIN METABOLISM, NEC Status: Chronic Priority: Medium Annotation/Comment:: Note cachexia likely secondary to his COPD. Consider high-protein Glucerna supplements twice daily as snacks by accepting providers. (10) Hypothyroidism (acquired) SNOMED Code(s): 573839374 Code(s): E03.9 - HYPOTHYROIDISM, UNSPECIFIED Status: Chronic Priority: Medium Annotation/Comment:: TSH somewhat elevated, although previous normal TSH levels on 05/14/2020. Increase Synthroid supplementation by accepting providers with TSH to be repeated in about 4 weeks. (11) Anemia SNOMED Code(s): 062919521 Code(s): D64.9 - ANEMIA, UNSPECIFIED Status: Acute Priority: Medium Onset Date: 09/28/19 Annotation/Comment:: Previous history of iron deficiency and anemia of chronic disease including previous mild renal insufficiency. Continue to observe closely by regular and accepting providers. Hemoglobin levels actually improved based on our previous medical records. Qualifiers: Anemia type: iron deficiency Iron deficiency anemia type: other iron deficiency Qualified Code(s): D50.8 - Other iron deficiency anemias (12) Need for comfort care SNOMED Code(s): 549140035, 613121484 Code(s): AGJ8553 - Status: Chronic Priority: High Annotation/Comment:: Comfort/palliative care confirmed with the patient and long-term records. Long-term prognosis is poor secondary to his CHF, COPD, etc. as above. Note current cachexia. (13) Peptic reflux disease SNOMED Code(s): 540809823 Code(s): K21.9 - GASTRO-ESOPHAGEAL REFLUX DISEASE WITHOUT ESOPHAGITIS Status: Chronic Priority: Medium Annotation/Comment:: High-dose IV Pepcid was given as GI prophylaxis. Stable by history under current therapy with no evidence of acute GI bleed, etc.. - Problem List Review Problem List Initiated/Reviewed/Updated: Yes - My Orders Last 24 Hours: My Active Orders 09/09/20 12:24 Resuscitation Status Stat 09/09/20 12:25 Chest 1V Frontal [CR] Stat Obtain Past Medical Record [OM.PC] Urgent Peripheral IV Insertion Adult [OM.PC] Stat 09/09/20 12:26 Isolation [COMM] Routine - Assessment/Plan Last 24 Hours: My Active Orders 09/09/20 12:24 Resuscitation Status Stat 09/09/20 12:25 Chest 1V Frontal [CR] Stat Obtain Past Medical Record [OM.PC] Urgent Peripheral IV Insertion Adult [OM.PC] Stat 09/09/20 12:26 Isolation [COMM] Routine Assessment:: As above Plan: As above. Extensive precautions were given to the patient, who is in agreement with the treatment plan. Ambulance transfer with vegetable cook document to [place] as above.
[2020-09-09 13:01] LABS: PTT,PARTIAL THROMBOPLSTIN TIME 29.1 SEC (24.5-32.8)
[2020-09-09 13:14] LABS: CHLORIDE,CL 96 mmol/L (98-107); SODIUM,NA 136 mmol/L (136-145)
[2020-09-09] MEDS ORDERED: Furosemide 40 MG/4 ML VIAL IVPUSH ONE (14:22)
== END 2020-09-09 15:00 ==
LOC: LL.ED 12:23
DX: J44.9 Chronic obstructive pulmonary disease, unspecified (principal); E78.5 Hyperlipidemia, unspecified; D50.8 Other iron deficiency anemias; I48.11 Longstanding persistent atrial fibrillation; I13.0 Hypertensive heart and chronic kidney disease with heart failure and stage 1 through stage 4 chronic kidney disease, or unspecified chronic kidney disease; I50.9 Heart failure, unspecified; N18.9 Chronic kidney disease, unspecified; K21.9 Gastro-esophageal reflux disease without esophagitis; E83.42 Hypomagnesemia; E03.9 Hypothyroidism, unspecified; I25.10 Atherosclerotic heart disease of native coronary artery without angina pectoris; N40.0 Benign prostatic hyperplasia without lower urinary tract symptoms; M40.209 Unspecified kyphosis, site unspecified; I25.2 Old myocardial infarction; Z20.828 Contact with and (suspected) exposure to other viral communicable diseases; Z87.891 Personal history of nicotine dependence; Z79.01 Long term (current) use of anticoagulants; Z79.899 Other long term (current) drug therapy; Z99.81 Dependence on supplemental oxygen; Z51.5 Encounter for palliative care
CPT/HCPCS: 36415; 71045; 80053; 82550; 82553; 83605; 83735; 83880; 84443; 84484; 84550; 85025; 85379; 85610; 85730; 87804; 93005; 96374; 96375; 99285-25; J1940; J3490; U0002

== ENCOUNTER 2020-11-24 03:57 | Emergency (ER) | payer MEDICARE, OTHER ==
[2020-11-24 04:42] LABS: CHLORIDE,CL 98 mmol/L (98-107); SODIUM,NA 139 mmol/L (136-145)
[2020-11-24] MEDS: Albuterol/Ipratropium 3.0-0.5 MG/3 ML Neb Soln NEB ONE (05:26)
[2020-11-24] MEDS: methylPREDNISolone Sodium Succinate 125 MG/2 ML SDV IVPUSH ONE (05:26)
[2020-11-24] MEDS: cefTRIAXone 1 GM in Sodium Chloride 0.9% 100 ML IV ONE (05:26)
[2020-11-24] MEDS: Furosemide 40 MG/4 ML VIAL IVPUSH ONE (05:26)
--- NOTE | 2020-11-24 05:26 | EDM.PDOC ---
ED HPI GENERAL MEDICAL PROBLEM - General Chief Complaint: Respiratory Problem Stated Complaint: shortness of breath Time Seen by Provider: 11/24/20 04:15 Source of Information: Reports: Patient, Prison Records - History of Present Illness INITIAL COMMENTS - FREE TEXT/NARRATIVE: Pt presents to ER with increased SOB over past several days No fever Rare cough Has hx/o COPD and uses oxygen at NH. Uses 3 L oxygen Sats noted to be 88-89% on 3 L Now 96% on 4L in ER Onset: Gradual Duration: Day(s): Location: Reports: Chest Context: Reports: Other (COPD) Treatments HEAT TREATER HEAD: Reports: Breathing Treatments, Oxygen - Related Data Allergies Allergy/AdvReac Type Severity Reaction Status Date / Time No Known Allergies Allergy Verified 11/24/20 04:24 Home Meds: Home Meds Albuterol Sulfate 2.5 mg INH QID PRN 09/28/19 [History] Apixaban [Eliquis] 2.5 mg PO BID@09/28/19 [History] Budesonide/Formoterol Fumarate [Symbicort 160-4.5 Mcg Inhaler] 2 puff INH BID@09/28/19 [History] Levothyroxine 50 mcg PO DAILY@49909/28/19 [History] Losartan Potassium 50 mg PO DAILY@49909/28/19 [History] Omeprazole Magnesium [Prilosec Otc] 20 mg PO DAILY@49909/28/19 [History] Potassium Chloride 20 meq PO DAILY@05009/28/19 [History] Simvastatin 40 mg PO BEDTIME 09/28/19 [History] Torsemide [Demadex] 40 mg PO DAILY 09/28/19 [History] Acetaminophen [Tylenol] 650 mg PO Q4H PRN 11/30/19 [History] Fluoride (Sodium) [Prevident] 1 applic DT DAILY PRN 11/30/19 [History] Menthol [Cough Drops] 1 lozenge PO Q4HR PRN 11/30/19 [History] Non-Formulary Medication [NF Drug] 1 packet PO DAILY@1200 11/30/19 [History] Tiotropium [Spiriva HandiHaler] 18 mcg INH DAILY@0500 11/30/19 [History] Trolamine Salicylate/Aloe Vera [Aspercreme 10% Cream] 1 applic TP QID 11/30/19 [History] Acetaminophen [Tylenol Arthritis] 1 tab PO BID@,09/09/20 [History] Methyl Salicylate/Menthol [Muscle Rub] 1 applic TOP QID PRN 09/09/20 [History] Sennosides/Docusate Sodium [Senna Plus 8.6-50 mg Tablet] 1 tab PO BID@, [History] Torsemide 20 mg PO DAILY@1200 09/09/20 [History] guaiFENesin [Guaifenesin] 200 mg PO BID@,09/09/20 [History] Lidocaine 5% [Lidoderm 5%] 1 patch TOP DAILY@0500 11/24/20 [History] Lidocaine 5% [Lidoderm 5%] 1 patch TOP DAILY@0500 11/24/20 [History] Magnesium Hydroxide [Milk of Magnesia] 30 ml PO DAILY PRN 11/24/20 [History] Melatonin 6 mg PO BEDTIME PRN 11/24/20 [History] polyethylene glycoL 3350 [Miralax] 17 gram PO DAILY PRN 11/24/20 [History] Past Medical History HEENT History: Reports: Cataract, Hard of Hearing, Impaired Vision, Other (See Below) Other HEENT History: He wears glasses. 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 has bilateral hearing aides Cardiovascular History: Reports: Afib, Arrhythmia, CAD, Cardiomyopathy, Heart Failure, Heart Murmur, High Cholesterol, Hypertension, TN, Pacemaker, Other (See Below) Other Cardiovascular History: Severe mitral valve insufficiency by clinical exam. PVCs with probable acute TN on 09/28/2019. Complete AV block with pacemaker placement. History of D-dimer elevation with negative work-up as below. 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 Bilateral pulmonary nodules and/or granulomatosis disease by CTA of the chest on 09/28/2019. Gastrointestinal History: Reports: Chronic Constipation, GERD Genitourinary History: Reports: BPH, Chronic Renal Insuffiency Musculoskeletal History: Reports: Arthritis, Fracture, Osteoarthritis, Other (See Below) Other Musculoskeletal History: L1 vertebral body compression fracture. Scoliosis. 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 Neurological History: Reports: Other (See Below) Other Neuro History: Insomnia. 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 Hypoalbuminemia. Hematologic History: Reports: Anemia, Iron Deficiency, Other (See Below) - Past Surgical History HEENT Surgical History: Reports: Oral Surgery, Other (See Below) Other HEENT Surgeries/Procedures: Multiple teeth extractions with partial dentures uppers and lowers. Cardiovascular Surgical History: Reports: Pacer - History Comment History Comment: Only limited medical records available from senior care with patient being a somewhat poor historian secondary to his severe presbycusis, etc. Social & Family History - Family History Family Medical History: Unobtainable - Tobacco Use Tobacco Use Status *Q: Former Tobacco User Used Tobacco, but Quit: Yes Month/Year Tobacco Last Used: quit many years ago Second Hand Smoke Exposure: No - Caffeine Use Caffeine Use: Reports: None - Living Situation & Occupation Living situation: Reports: (2), Extended Care Facility ([facility]) ED ROS GENERAL - Review of Systems Review Of Systems: See Below Constitutional: Reports: No Symptoms HEENT: Reports: No Symptoms Respiratory: Reports: Shortness of Breath Cardiovascular: Reports: Dyspnea on Exertion, Edema GI/Abdominal: Reports: No Symptoms Musculoskeletal: Reports: No Symptoms ED EXAM, GENERAL - Physical Exam Exam: See Below Exam Limited By: No Limitations General Appearance: Alert, WD/WN, Mild Distress Throat/Mouth: Normal Oropharynx Respiratory/Chest: Decreased Breath Sounds Cardiovascular: Regular Rate, Rhythm, Other (3+ edema bilaterally) GI/Abdominal: Soft, Non-Tender Extremities: Pedal Edema Course - Vital Signs Last Recorded V/S: Last Vital Signs Temp 98.2 F 11/24/20 04:06 Pulse 82 11/24/20 04:06 Resp 24 H 11/24/20 04:06 BP 168/81 H 11/24/20 04:06 Pulse Ox 94 L 11/24/20 04:06 - Orders/Labs/Meds Orders: Active Orders 24 hr Category Date Time Status RT Aerosol Therapy [RC] ASDIRECTED Care 11/24/20 05:20 Ordered Chest 1V Frontal [CR] Stat Exams 11/24/20 03:59 Ordered Albuterol/Ipratropium [DuoNeb 3.0-0.5 MG/3 ML] Med 11/24/20 05:20 Once 3 ml NEB ONETIME ONE Furosemide [Lasix] Med 11/24/20 05:19 Once 40 mg IVPUSH NOW ONE Sodium Chloride 0.9% [Saline Flush] Med 11/24/20 04:00 Active 10 ml FLUSH ASDIRECTED PRN cefTRIAXone [Rocephin] 1 gm Med 11/24/20 05:19 Ordered Sodium Chloride 0.9% [Normal Saline] 100 ml IV ONETIME methylPREDNISolone Sod Succ [Solu-MEDROL] Med 11/24/20 05:18 Once 125 mg IVPUSH ONETIME ONE Saline Lock Insert [OM.PC] Routine Oth 11/24/20 04:00 Ordered Medication Orders Sodium Chloride (Saline Flush) 10 ml FLUSH ASDIRECTED PRN PRN Reason: Keep Vein Open Labs: Laboratory Tests 11/24/20 11/24/20 Range/Units 04:16 04:16 WBC 7.0 (4.0-10.2) K/uL RBC 3.55 L (4.33-5.41) M/uL Hgb 11.6 L (13.1-16.8) g/dL Hct 37.0 L (39.0-49.0) % MCV 104.2 H D (84.0-98.0) fL MCH 32.7 (28.2-33.3) pg MCHC 31.4 L (31.7-36.0) g/dL RDW 15.2 H (11.2-14.1) % Plt Count 146 L (150-350) K/uL Neut % (Auto) 78.1 (45.0-80.0) % Lymph % (Auto) 7.7 L (10.0-50.0) % [place] % (Auto) 12.0 (2.0-14.0) % Eos % (Auto) 1.9 (0.0-5.0) % Baso % (Auto) 0.3 (0.0-2.0) % Neut # (Auto) 5.47 (1.40-7.00) K/uL Lymph # (Auto) 0.54 (0.50-3.50) K/uL [place] # (Auto) 0.84 (0.00-1.00) K/uL Eos # (Auto) 0.13 (0.00-0.50) K/uL Baso # (Auto) 0.02 (0.00-0.20) K/uL Sodium 139 (136-145) mmol/L Potassium 4.2 (3.5-5.1) mmol/L Chloride 98 (98-107) mmol/L Carbon Dioxide 35.4 H (21.0-32.0) mmol/L BUN 32 H (7-18) mg/dL Creatinine 1.06 (0.51-1.17) mg/dL Est Cr Clr Drug Dosing 33.41 mL/min Estimated GFR (MDRD) > 60 mL/min Glucose 120 H (70-99) mg/dL Calcium 9.4 (8.5-10.1) mg/dL Total Bilirubin 0.6 (0.2-1.0) mg/dL AST 25 (15-37) U/L ALT 32 (12-78) U/L Alkaline Phosphatase 100 (46-116) IU/L NT-Pro-B Natriuret Pep 48277 H (0-125) pg/mL Total Protein 7.5 (6.4-8.2) g/dL Albumin 3.5 (3.4-5.0) g/dL Meds: Medications Generic Name Dose Route Start Last Admin Trade Name Freq PRN Reason Stop Dose Admin Sodium Chloride 10 ml 11/24/20 04:00 Saline Flush FLUSH ASDIRECTED PRN Keep Vein Open - Re-Assessments/Exams Free Text/Narrative Re-Assessment/Exam: 11/24/20 05:24 See lab and CXR Pt stable in ER on 4L oxygen Sats 96-98% Pt given Solu-medrol 125 mg IV, Rocephin 1 gm IV, Lasix 40 mg IV and Duo-neb HHN in ER Departure - Departure Time of Disposition: 05:30 Disposition: DC/Tfer to SNF 03 Clinical Impression: COPD (chronic obstructive pulmonary disease) Qualifiers: COPD type: unspecified COPD Qualified Code(s): J44.9 - Chronic obstructive pulmonary disease, unspecified - Discharge Information *PRESCRIPTION DRUG MONITORING PROGRAM REVIEWED*: Not Applicable *COPY OF PRESCRIPTION DRUG MONITORING REPORT IN PATIENT SOPHIA: Not Applicable Instructions: Chronic Obstructive Pulmonary Disease, [id number], Shortness of Breath, Adult, [id number] Referrals: Mireya Love PA [Primary Care Provider] - Additional Instructions: Follow up with usual provider Sepsis Event Note (ED) - Evaluation Sepsis Screening Result: No Definite Risk - Focused Exam Vital Signs: Vital Signs Temp Pulse Resp BP Pulse Ox Pulse Ox 11/24/20 04:06 98.2 F 82 24 H 168/81 H 94 L 11/24/20 04:00 98.0 F 79 20 160/82 H 98 95 11/24/20 03:57 86 L - My Orders Last 24 Hours: My Active Orders 11/24/20 03:59 Chest 1V Frontal [CR] Stat 11/24/20 04:00 Sodium Chloride 0.9% [Saline Flush] 10 ml FLUSH ASDIRECTED PRN Saline Lock Insert [OM.PC] Routine 11/24/20 05:18 methylPREDNISolone Sod Succ [Solu-MEDROL] 125 mg IVPUSH ONETIME ONE 11/24/20 05:19 Furosemide [Lasix] 40 mg IVPUSH NOW ONE cefTRIAXone [Rocephin] 1 gm Sodium Chloride 0.9% [Normal Saline] 100 ml IV ONETIME 11/24/20 05:20 RT Aerosol Therapy [RC] ASDIRECTED Albuterol/Ipratropium [DuoNeb 3.0-0.5 MG/3 ML] 3 ml NEB ONETIME ONE - Assessment/Plan Last 24 Hours: My Active Orders 11/24/20 03:59 Chest 1V Frontal [CR] Stat 11/24/20 04:00 Sodium Chloride 0.9% [Saline Flush] 10 ml FLUSH ASDIRECTED PRN Saline Lock Insert [OM.PC] Routine 11/24/20 05:18 methylPREDNISolone Sod Succ [Solu-MEDROL] 125 mg IVPUSH ONETIME ONE 11/24/20 05:19 Furosemide [Lasix] 40 mg IVPUSH NOW ONE cefTRIAXone [Rocephin] 1 gm Sodium Chloride 0.9% [Normal Saline] 100 ml IV ONETIME 11/24/20 05:20 RT Aerosol Therapy [RC] ASDIRECTED Albuterol/Ipratropium [DuoNeb 3.0-0.5 MG/3 ML] 3 ml NEB ONETIME ONE
[2020-11-24] MEDS: Sodium Chloride 0.9% 10 ML Syringe FLUSH PRN (05:27)
== END 2020-11-24 06:35 ==
LOC: LL.ED 03:57
DX: J44.9 Chronic obstructive pulmonary disease, unspecified (principal); I25.10 Atherosclerotic heart disease of native coronary artery without angina pectoris; I13.0 Hypertensive heart and chronic kidney disease with heart failure and stage 1 through stage 4 chronic kidney disease, or unspecified chronic kidney disease; I50.9 Heart failure, unspecified; N18.9 Chronic kidney disease, unspecified; I48.91 Unspecified atrial fibrillation; E78.00 Pure hypercholesterolemia, unspecified; N40.0 Benign prostatic hyperplasia without lower urinary tract symptoms; I25.2 Old myocardial infarction; K21.9 Gastro-esophageal reflux disease without esophagitis; M19.90 Unspecified osteoarthritis, unspecified site; Z79.01 Long term (current) use of anticoagulants; Z79.899 Other long term (current) drug therapy; Z87.891 Personal history of nicotine dependence
CPT/HCPCS: 36415; 71045; 80053; 83880; 85025; 94640; 96365; 96375; 99283; 99285; J0696; J1940; J2930; J7620-GY

== ENCOUNTER 2020-12-30 16:29 | Inpatient (IN) | payer MEDICARE, OTHER ==
--- NOTE | 2020-12-30 16:56 | EDM.PDOC ---
ED HPI GENERAL MEDICAL PROBLEM - General Chief Complaint: Respiratory Problem Stated Complaint: Shortness of Breath Time Seen by Provider: 12/30/20 16:30 Source of Information: Reports: Patient History Limitations: Reports: No Limitations - History of Present Illness INITIAL COMMENTS - FREE TEXT/NARRATIVE: Patient comes emergency department today from the [facility] here in [facility] with concerns of shortness of breath. [facility] with concerns of shortness of breath. The patient relates on the daily basis with any physical exertion he becomes quite short of breath. He is at his baseline of exercise tolerance. He has no shortness of breath at rest upon exam in the ED> He had a brief episode of shortness of breath today while he was sitting in the chair. They increased his oxygen at the jail gave him a nebulizer and upon arrival in the emergency department he states that he is better than his typical baseline. He has no shortness of breath no chest pain. He has had a Dry hacking nonproductive cough the past couple of days. No fever no chills. He does complain of generalized weakness but this is chronic for him. He has no abdominal pain nausea or vomiting. No palpitations. No syncope. No hematuria dysuria or urinary frequency. He has quite a bit of peripheral edema to his lower extremities although this is chronic for him. He did just recently have his pacemaker battery change at the OR in [place]. He has received his COVID vaccine. The jail reported his oxygen saturation was in the low 70s although that was on his finger and in the ambulance his sats were in the mid 90s on his ear. - Related Data Allergies Allergy/AdvReac Type Severity Reaction Status Date / Time No Known Allergies Allergy Verified 11/24/20 04:24 Home Meds: Home Meds Albuterol Sulfate 2.5 mg INH QID PRN 09/28/19 [History] Apixaban [Eliquis] 2.5 mg PO BID@09/28/19 [History] Budesonide/Formoterol Fumarate [Symbicort 160-4.5 Mcg Inhaler] 2 puff INH BID@09/28/19 [History] Levothyroxine 50 mcg PO DAILY@49909/28/19 [History] Losartan Potassium 50 mg PO DAILY@49909/28/19 [History] Omeprazole Magnesium [Prilosec Otc] 20 mg PO DAILY@0500 09/28/19 [History] Potassium Chloride 20 meq PO DAILY@0500 09/28/19 [History] Simvastatin 40 mg PO BEDTIME 09/28/19 [History] Acetaminophen [Tylenol] 650 mg PO Q6H PRN 11/30/19 [History] Fluoride (Sodium) [Prevident] 1 applic DT DAILY PRN 11/30/19 [History] Menthol [Cough Drops] 1 lozenge PO Q4HR PRN 11/30/19 [History] Tiotropium [Spiriva HandiHaler] 18 mcg INH DAILY@0500 11/30/19 [History] Acetaminophen [Tylenol Arthritis] 650 mg PO BID@09/09/20 [History] Methyl Salicylate/Menthol [Muscle Rub] 1 applic TOP QID PRN 09/09/20 [History] Sennosides/Docusate Sodium [Senna Plus 8.6-50 mg Tablet] 1 tab PO BID@09/09/20 [History] Torsemide 30 mg PO DAILY@119909/09/20 [History] guaiFENesin [Guaifenesin] 200 mg PO BID@09/09/20 [History] Lidocaine 5% [Lidoderm 5%] 1 patch TOP BID PRN 11/24/20 [History] Melatonin 6 mg PO BEDTIME PRN 11/24/20 [History] polyethylene glycoL 3350 [Miralax] 17 gram PO DAILY PRN 11/24/20 [History] Ascorbic Acid/Multivit-Min [Emergen-C 1,000 mg Packet] 1,000 mg PO DAILY@1200 12/30/20 [History] Torsemide 80 mg PO DAILY 12/30/20 [History] Past Medical History HEENT History: Reports: Cataract, Hard of Hearing, Impaired Vision, Other (See Below) Other HEENT History: He wears glasses. 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 has bilateral hearing aides Cardiovascular History: Reports: Afib, Arrhythmia, CAD, Cardiomyopathy, Heart Failure, Heart Murmur, High Cholesterol, Hypertension, NJ, Pacemaker, Other (See Below) Other Cardiovascular History: Severe mitral valve insufficiency by clinical exam. PVCs with probable acute NJ on 09/28/2019. Complete AV block with pacemaker placement. History of D-dimer elevation with negative work-up as below. 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 Bilateral pulmonary nodules and/or granulomatosis disease by CTA of the chest on 09/28/2019. Gastrointestinal History: Reports: Chronic Constipation, GERD Genitourinary History: Reports: BPH, Chronic Renal Insuffiency Musculoskeletal History: Reports: Arthritis, Fracture, Osteoarthritis, Other (See Below) Other Musculoskeletal History: L1 vertebral body compression fracture. Scoliosis. 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 Neurological History: Reports: Other (See Below) Other Neuro History: Insomnia. 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 Hypoalbuminemia. Hematologic History: Reports: Anemia, Iron Deficiency, Other (See Below) - Past Surgical History HEENT Surgical History: Reports: Oral Surgery, Other (See Below) Other HEENT Surgeries/Procedures: Multiple teeth extractions with partial dentures uppers and lowers. Cardiovascular Surgical History: Reports: Pacer - History Comment History Comment: Only limited medical records available from jail with patient being a somewhat poor historian secondary to his severe presbycusis, etc. Social & Family History - Family History Family Medical History: Unobtainable - Caffeine Use Caffeine Use: Reports: None - Living Situation & Occupation Living situation: Reports: (2), Extended Care Facility ([facility] in [facility]) ED ROS GENERAL - Review of Systems Review Of Systems: Comprehensive ROS is negative, except as noted in HPI. ED EXAM, GENERAL - Physical Exam Exam: See Below Free Text/Narrative:: Pt is alert no distress. Able to speak in full sentences. Exam Limited By: No Limitations General Appearance: Alert, WD/WN, No Apparent Distress Ears: Normal External Exam Nose: Normal Inspection Throat/Mouth: Normal Inspection Head: Atraumatic, Normocephalic Neck: Normal Inspection Respiratory/Chest: No Respiratory Distress, No Accessory Muscle Use, Decreased Breath Sounds (Throughout. ). No: Accessory Muscle Use Cardiovascular: Normal Peripheral Pulses, Irregularly Irregular GI/Abdominal: Normal Bowel Sounds, Soft, Non-Tender, Hernia (easily reducable and non-tender. ) (Male) Exam: Deferred Rectal (Males) Exam: Deferred Back Exam: Normal Inspection Extremities: Pedal Edema (3+ pitting edema bilaterally with some weeping of fluids as well. No sign of infection. ) Neurological: Alert, Oriented, No Motor/Sensory Deficits Psychiatric: Normal Affect, Normal Mood Skin Exam: Warm, Dry, Intact, Normal Color, No Rash Lymphatic: No Adenopathy Course - Vital Signs Last Recorded V/S: Last Vital Signs Temp 98.4 F 12/30/20 16:30 Pulse 88 12/30/20 18:02 Resp 25 H 12/30/20 18:02 BP 131/69 12/30/20 18:02 Pulse Ox 96 12/30/20 18:02 - Orders/Labs/Meds Orders: Active Orders 24 hr Category Date Time Status Admission Status [Patient Status] [ADT] Routine ADT 12/30/20 17:52 Active EKG Documentation Completion [RC] ASDIRECTED Care 12/30/20 17:40 Active EKG Documentation Completion [RC] STAT Care 12/30/20 16:39 Active Chest 1V Frontal [CR] Stat Exams 12/30/20 16:39 Taken BLOOD GAS VENOUS,POC [POC] Stat Lab 12/30/20 16:50 Received TROPONIN I [CHEM] Timed Lab 12/30/20 20:50 Ordered Labs: Laboratory Tests 12/30/20 12/30/20 12/30/20 Range/Units 16:50 16:50 16:50 WBC 8.7 (4.0-10.2) K/uL RBC 3.69 L (4.33-5.41) M/uL Hgb 12.3 L (13.1-16.8) g/dL Hct 38.0 L (39.0-49.0) % MCV 103.0 H (84.0-98.0) fL MCH 33.3 (28.2-33.3) pg MCHC 32.4 (31.7-36.0) g/dL RDW 16.0 H (11.2-14.1) % Plt Count 170 (150-350) K/uL Neut % (Auto) 84.6 H (45.0-80.0) % Lymph % (Auto) 4.5 L (10.0-50.0) % Cherry % (Auto) 10.0 (2.0-14.0) % Eos % (Auto) 0.7 (0.0-5.0) % Baso % (Auto) 0.2 (0.0-2.0) % Neut # (Auto) 7.40 H (1.40-7.00) K/uL Lymph # (Auto) 0.39 L (0.50-3.50) K/uL Cherry # (Auto) 0.87 (0.00-1.00) K/uL Eos # (Auto) 0.06 (0.00-0.50) K/uL Baso # (Auto) 0.02 (0.00-0.20) K/uL VBG pH Cancelled VBG pCO2 Cancelled VBG pO2 Cancelled VBG HCO3 Cancelled VBG Total CO2 Cancelled VBG O2 Saturation Cancelled VBG Base Excess Cancelled O2 Delivery Device Cancelled Oxygen Flow Rate Cancelled Blood Gas Comments Cancelled Sodium 139 (136-145) mmol/L Potassium 4.1 (3.5-5.1) mmol/L Chloride 97 L (98-107) mmol/L Carbon Dioxide 35.2 H (21.0-32.0) mmol/L BUN 52 H (7-18) mg/dL Creatinine 1.03 (0.51-1.17) mg/dL Est Cr Clr Drug Dosing TNP Estimated GFR (MDRD) > 60 mL/min Glucose 147 H (70-99) mg/dL Calcium 9.2 (8.5-10.1) mg/dL Total Bilirubin 0.5 (0.2-1.0) mg/dL AST 25 (15-37) U/L ALT 28 (12-78) U/L Alkaline Phosphatase 85 (46-116) IU/L Troponin I 0.064 H* (0.000-0.056) ng/mL NT-Pro-B Natriuret Pep 64720 H (0-125) pg/mL Total Protein 7.0 (6.4-8.2) g/dL Albumin 3.3 L (3.4-5.0) g/dL Meds: Medications Discontinued Medications Generic Name Dose Route Start Last Admin Trade Name Freq PRN Reason Stop Dose Admin Aspirin 324 mg 12/30/20 17:33 12/30/20 17:43 Aspirin 81 Mg Tab.Chew PO 12/30/20 17:34 324 mg ONETIME ONE Administration Furosemide 40 mg 12/30/20 17:52 Furosemide 40 Mg/4 Ml Vial IVPUSH 12/30/20 17:53 NOW ONE - Radiology Interpretation Free Text/Narrative:: Chest x-ray per radiology shows diminished lung volumes bibasilar opacities pre sent atelectasis or consolidation. Suspect small bilateral pleural effusions. Lung apices are obscured by patient's head. Cardiomegaly. Bilateral interstitial lung markings are present potentially representing edema. There are similar to prior exam. No free air under the diaphragm. - Re-Assessments/Exams Free Text/Narrative Re-Assessment/Exam: 12/30/20 18:14 His EKG is unchanged from the past. He is in no distress upon arrival. 12/30/20 18:16 Laboratory evaluation with a CBC, WBC 8.7 hemoglobin 12.3 platelet 170. Venous blood gas with a PCO2 of 64 as well as an elevated bicarb and base excess consistent with chronic retention with a normal pH. CMP with a sodium 139, potassium 4.1, BUN 52, creatinine 1.03. Glucose 147. proBNP 58109 which is at about baseline for him. Troponin is mildly elevated 0.064. 324 aspirin given orally. I went back into visit with the patient he has not complained of any chest pain pressure discomfort palpitations over the past couple of days. As of note he did have a pacemaker battery change out yesterday at the [facility] in [place]. He is in no acute distress and he relates that he is really at his baseline for his shortness of breath and his exercise intolerance. Although I am unsure of which way his troponin is trending. We will repeat a troponin in 4 hours. In the meantime I did call and speak with Dr. Neal the hospitalist professional architect at the OR in [place]. He agrees with the plan to trend troponins as well as a small dose of lasix and observe overnight trending troponins and no need to transfer him at this time. I discussed the results with the patient. I really do not feel that he has a COPD exacerbation. He might have a little bit worsening of the congestive heart failure although he is really much at baseline. We will admit him into the hospital under observation with the plan of [facility] him [facility] the [facility] tomorrow. He is comfortable with this plan his questions are answered. Departure - Departure Time of Disposition: 18:00 Disposition: Refer to Observation Clinical Impression: Elevated troponin I level CHF (congestive heart failure) Qualifiers: Heart failure type: unspecified Heart failure chronicity: acute on chronic Qualified Code(s): I50.9 - Heart failure, unspecified - Discharge Information Referrals: Mireya Love PA [Primary Care Provider] - Forms: ED Department Discharge Sepsis Event Note (ED) - Focused Exam Vital Signs: Vital Signs Temp Pulse Resp BP Pulse Ox 12/30/20 18:02 88 25 H 131/69 96 12/30/20 17:43 80 18 118/62 97 12/30/20 17:30 79 16 118/56 L 97 12/30/20 17:00 79 95/46 L 12/30/20 16:45 82 96/57 L 12/30/20 16:30 98.4 F 85 20 132/54 L 94 L - Problem List & Annotations (1) COPD (chronic obstructive pulmonary disease) SNOMED Code(s): 06136906 Code(s): J44.9 - CHRONIC OBSTRUCTIVE PULMONARY DISEASE, UNSPECIFIED Status: Chronic Priority: Medium Current Visit: No Annotation/Comment:: O2 dependent at his baseline oxygen requirement of 2-3 liters. No fever no increased sputum production no wheezing. Good oxygen sats on arrival. No increased work of breathing. No indication at this time for steroids or anti-biotics will monitor and follow. continue home medications. Qualifiers: COPD type: unspecified COPD Qualified Code(s): J44.9 - Chronic obstructive pulmonary disease, unspecified (2) Atrial fibrillation SNOMED Code(s): 47794773 Code(s): I48.91 - UNSPECIFIED ATRIAL FIBRILLATION Status: Chronic Priority: High Current Visit: No Annotation/Comment:: In a fib, on Eliquis. Rate controlled. No CP. Qualifiers: Atrial fibrillation type: longstanding persistent Qualified Code(s): I48.11 - Longstanding persistent atrial fibrillation (3) CHF (congestive heart failure) SNOMED Code(s): 49627126 Code(s): I50.9 - HEART FAILURE, UNSPECIFIED Status: Acute Priority: High Current Visit: Yes Annotation/Comment:: Mild CHF exacerbation with good kidney function. Pro-BNP at baseline. Extra dose of lasix in the ED given. Will see how he dirueses and if symptoms improve. Continue other previous home therapies. The patient does not want aggressive management or cardiology consult at this time. Discussed case with Dr. Neal at [facility] in [place] comfortable with the plan as laid out. Qualifiers: Heart failure type: unspecified Heart failure chronicity: acute on chronic Qualified Code(s): I50.9 - Heart failure, unspecified (4) Elevated troponin I level SNOMED Code(s): 833036953 Code(s): R77.8 - OTHER SPECIFIED ABNORMALITIES OF PLASMA PROTEINS Status: Acute Current Visit: Yes Annotation/Comment:: Mild elevation either from recent pacemaker battery replacement or cardiac strain from CHF. Will trend over night. Start aspirin daily. Continue ELiquis. Does not want any intervention from cardiology at this time. No CP at this time. SOB with exertion although this is chronic for him. - Problem List Review Problem List Initiated/Reviewed/Updated: Yes - My Orders Last 24 Hours: My Active Orders 12/30/20 16:39 EKG Documentation Completion [RC] STAT Chest 1V Frontal [CR] Stat 12/30/20 16:50 BLOOD GAS VENOUS,POC [POC] Stat 12/30/20 17:40 EKG Documentation Completion [RC] ASDIRECTED 12/30/20 17:52 Admission Status [Patient Status] [ADT] Routine 12/30/20 20:50 TROPONIN I [CHEM] Timed - Assessment/Plan Admission H&P: Please use this note as an admission H&P Last 24 Hours: My Active Orders 12/30/20 16:39 EKG Documentation Completion [RC] STAT Chest 1V Frontal [CR] Stat 12/30/20 16:50 BLOOD GAS VENOUS,POC [POC] Stat 12/30/20 17:40 EKG Documentation Completion [RC] ASDIRECTED 12/30/20 17:52 Admission Status [Patient Status] [ADT] Routine 12/30/20 20:50 TROPONIN I [CHEM] Timed Assessment:: See above. Plan: As above. VTE: Aspirin and Eliquis. Short stay. NO teds due to weeping of lower extremities from Peripheral edema. Sepsis: No signs of sepsis at this time. Will continue to monitor. Pt is stable for observation with plans to discharge back to the jail tomorrow if all trends correctly or no change.s Code Status: DNR/DNI. Verbally verified with the patient while in the hospital. [facility] and admission here in [place].
--- NOTE | 2020-12-30 17:00 | PCM.EKG ---
#1 Interpretation EKG Date: 12/30/20 Time: 17:00 Rhythm: A-Fib Rate (Beats/Min): 80 [place]: Normal P-Wave: Absent QRS: Normal ST-T: Normal QT: Normal Comparison: No Change
[2020-12-30 17:29] LABS: CHLORIDE,CL 97 mmol/L (98-107); SODIUM,NA 139 mmol/L (136-145)
[2020-12-30] MEDS ORDERED: Aspirin 81 MG Tab.Chew PO ONE (17:33)
[2020-12-30] MEDS ORDERED: Furosemide 40 MG/4 ML VIAL IVPUSH ONE (17:52)
[2020-12-30] MEDS ORDERED: Polyethylene Glycol 3350 Powder 17 GM Packet PO PRN (18:51)
[2020-12-30] MEDS ORDERED: Melatonin 3 MG Tab PO PRN (18:51)
[2020-12-30] MEDS ORDERED: Albuterol 0.083% 2.5 MG/3 ML Neb Soln INH PRN (18:51)
[2020-12-30] MEDS: Simvastatin 20 MG Tab PO SCH (19:54)
[2020-12-31] MEDS ORDERED: Budesonide 0.5 MG/2 ML Neb Susp NEB STA (01:00)
[2020-12-31] MEDS ORDERED: cefTRIAXone 2 GM Vial IVPUSH SCH (01:15)
[2020-12-31] MEDS ORDERED: Albuterol/Ipratropium 3.0-0.5 MG/3 ML Neb Soln NEB PRN (01:17)
[2020-12-31] MEDS ORDERED: Arformoterol 15 MCG/2 ML Neb Soln NEB STA (01:20)
[2020-12-31] MEDS ORDERED: Azithromycin 250 MG Tab PO SCH ×2 (01:30→20:00)
[2020-12-31] MEDS: cefTRIAXone 1 GM Vial IVPUSH SCH (01:38)
[2020-12-31] MEDS: methylPREDNISolone Sodium Succinate 125 MG/2 ML SDV IVPUSH SCH ×3 (01:39→17:49)
[2020-12-31] MEDS: Sodium Chloride 0.9% 10 ML Syringe FLUSH PRN ×4 (01:41→17:50)
[2020-12-31] MEDS: Azithromycin 250 MG Tab PO SCH ×2 (01:57→19:49)
[2020-12-31] MEDS ORDERED: Omeprazole 20 MG Cap.CR PO SCH (05:00)
[2020-12-31] MEDS ORDERED: Potassium Chloride 20 MEQ Tab.ER PO SCH (05:00)
[2020-12-31] MEDS ORDERED: Tiotropium Inhaler 18 MCG Inhalation Powder Cap Kit of 5 INH SCH (05:00)
[2020-12-31 07:51] LABS: CHLORIDE,CL 99 mmol/L (98-107); SODIUM,NA 141 mmol/L (136-145)
[2020-12-31] MEDS: Omeprazole 20 MG Cap.CR PO SCH (07:54)
[2020-12-31] MEDS: Aspirin 81 MG Tab.Chew PO SCH (07:54)
[2020-12-31] MEDS: Potassium Chloride 20 MEQ Tab.ER PO SCH (07:55)
[2020-12-31] MEDS: Tiotropium Inhaler 18 MCG Inhalation Powder Cap Kit of 5 INH SCH (08:05)
[2020-12-31] MEDS: Apixaban 2.5 MG Tab PO SCH (11:34)
--- NOTE | 2020-12-31 12:13 | PCM.PN ---
- General Info Date of Service: 12/31/20 Admission Dx/Problem (Free Text): Elevated troponin SOB CHF Subjective Update: I was summoned to the patient's room at about midnight due to labored breathing tachypnea and increased work of breathing. This patient received some Lasix in the emergency department and has had good diuresis. While he has been sleeping he has had quite a bit of worsening shortness of breath. He has no pain in his chest. Not received any nebulizers. He is only able to speak in about 3-4 word sentences until he has to grab a breath of air. - Review of Systems General: Reports: Weakness HEENT: Reports: No Symptoms Pulmonary: Reports: Shortness of Breath. Denies: Sputum, Wheezing Cardiovascular: Reports: No Symptoms Gastrointestinal: Reports: No Symptoms Neurological: Reports: No Symptoms Psychiatric: Reports: No Symptoms - Patient Data Vitals - Most Recent: Last Vital Signs Temp 98.8 F 12/31/20 07:55 Pulse 99 12/31/20 07:55 Resp 36 H 12/31/20 07:55 BP 168/73 H 12/31/20 07:55 Pulse Ox 99 12/31/20 07:55 Weight - Most Recent: 125 lb 8 oz I&O - Last 24 Hours: Intake & Output 12/30/20 12/31/20 12/31/20 22:59 06:59 14:59 Output Total 625 600 Balance -625 -600 Lab Results Last 24 Hours: Laboratory Results - last 24 hr 12/30/20 12/30/20 12/30/20 Range/Units 16:50 16:50 16:50 WBC 8.7 (4.0-10.2) K/uL RBC 3.69 L (4.33-5.41) M/uL Hgb 12.3 L (13.1-16.8) g/dL Hct 38.0 L (39.0-49.0) % MCV 103.0 H (84.0-98.0) fL MCH 33.3 (28.2-33.3) pg MCHC 32.4 (31.7-36.0) g/dL RDW 16.0 H (11.2-14.1) % Plt Count 170 (150-350) K/uL Neut % (Auto) 84.6 H (45.0-80.0) % Lymph % (Auto) 4.5 L (10.0-50.0) % [place] % (Auto) 10.0 (2.0-14.0) % Eos % (Auto) 0.7 (0.0-5.0) % Baso % (Auto) 0.2 (0.0-2.0) % Neut # (Auto) 7.40 H (1.40-7.00) K/uL Lymph # (Auto) 0.39 L (0.50-3.50) K/uL [place] # (Auto) 0.87 (0.00-1.00) K/uL Eos # (Auto) 0.06 (0.00-0.50) K/uL Baso # (Auto) 0.02 (0.00-0.20) K/uL VBG pH Cancelled POC VBG pH VBG pCO2 Cancelled POC VBG pCO2 VBG pO2 Cancelled POC VBG pO2 VBG HCO3 Cancelled POC VBG HCO3 VBG Total CO2 Cancelled VBG O2 Saturation Cancelled POC Venous O2 Sat VBG Base Excess Cancelled O2 Delivery Device Cancelled Oxygen Flow Rate Cancelled Blood Gas Comments Cancelled Sodium 139 (136-145) mmol/L Potassium 4.1 (3.5-5.1) mmol/L Chloride 97 L (98-107) mmol/L Carbon Dioxide 35.2 H (21.0-32.0) mmol/L BUN 52 H (7-18) mg/dL Creatinine 1.03 (0.51-1.17) mg/dL Est Cr Clr Drug Dosing TNP Estimated GFR (MDRD) > 60 mL/min Glucose 147 H (70-99) mg/dL Lactic Acid (0.4-2.0) mmol/L Calcium 9.2 (8.5-10.1) mg/dL Total Bilirubin 0.5 (0.2-1.0) mg/dL AST 25 (15-37) U/L ALT 28 (12-78) U/L Alkaline Phosphatase 85 (46-116) IU/L Troponin I 0.064 H* (0.000-0.056) ng/mL NT-Pro-B Natriuret Pep 31882 H (0-125) pg/mL Total Protein 7.0 (6.4-8.2) g/dL Albumin 3.3 L (3.4-5.0) g/dL 12/30/20 12/30/20 12/31/20 Range/Units 16:50 20:55 01:25 WBC (4.0-10.2) K/uL RBC (4.33-5.41) M/uL Hgb (13.1-16.8) g/dL Hct (39.0-49.0) % MCV (84.0-98.0) fL MCH (28.2-33.3) pg MCHC (31.7-36.0) g/dL RDW (11.2-14.1) % Plt Count (150-350) K/uL Neut % (Auto) (45.0-80.0) % Lymph % (Auto) (10.0-50.0) % [place] % (Auto) (2.0-14.0) % Eos % (Auto) (0.0-5.0) % Baso % (Auto) (0.0-2.0) % Neut # (Auto) (1.40-7.00) K/uL Lymph # (Auto) (0.50-3.50) K/uL [place] # (Auto) (0.00-1.00) K/uL Eos # (Auto) (0.00-0.50) K/uL Baso # (Auto) (0.00-0.20) K/uL VBG pH POC VBG pH 7.35 VBG pCO2 POC VBG pCO2 64 VBG pO2 POC VBG pO2 35 VBG HCO3 POC VBG HCO3 35 VBG Total CO2 VBG O2 Saturation POC Venous O2 Sat 61 VBG Base Excess O2 Delivery Device Oxygen Flow Rate Blood Gas Comments Sodium (136-145) mmol/L Potassium (3.5-5.1) mmol/L Chloride (98-107) mmol/L Carbon Dioxide (21.0-32.0) mmol/L BUN (7-18) mg/dL Creatinine (0.51-1.17) mg/dL Est Cr Clr Drug Dosing Estimated GFR (MDRD) mL/min Glucose (70-99) mg/dL Lactic Acid (0.4-2.0) mmol/L Calcium (8.5-10.1) mg/dL Total Bilirubin (0.2-1.0) mg/dL AST (15-37) U/L ALT (12-78) U/L Alkaline Phosphatase (46-116) IU/L Troponin I 0.070 H* 0.076 H* (0.000-0.056) ng/mL NT-Pro-B Natriuret Pep (0-125) pg/mL Total Protein (6.4-8.2) g/dL Albumin (3.4-5.0) g/dL 12/31/20 12/31/20 12/31/20 Range/Units 01:25 07:13 07:13 WBC 7.7 (4.0-10.2) K/uL RBC 3.81 L (4.33-5.41) M/uL Hgb 12.8 L (13.1-16.8) g/dL Hct 38.4 L (39.0-49.0) % MCV 100.8 H (84.0-98.0) fL MCH 33.6 H (28.2-33.3) pg MCHC 33.3 (31.7-36.0) g/dL RDW 16.2 H (11.2-14.1) % Plt Count 168 (150-350) K/uL Neut % (Auto) 96.6 H (45.0-80.0) % Lymph % (Auto) 1.9 L (10.0-50.0) % [place] % (Auto) 1.3 L (2.0-14.0) % Eos % (Auto) 0.1 (0.0-5.0) % Baso % (Auto) 0.1 (0.0-2.0) % Neut # (Auto) 7.43 H (1.40-7.00) K/uL Lymph # (Auto) 0.15 L (0.50-3.50) K/uL [place] # (Auto) 0.10 (0.00-1.00) K/uL Eos # (Auto) 0.01 (0.00-0.50) K/uL Baso # (Auto) 0.01 (0.00-0.20) K/uL VBG pH POC VBG pH VBG pCO2 POC VBG pCO2 VBG pO2 POC VBG pO2 VBG HCO3 POC VBG HCO3 VBG Total CO2 VBG O2 Saturation POC Venous O2 Sat VBG Base Excess O2 Delivery Device Oxygen Flow Rate Blood Gas Comments Sodium 141 (136-145) mmol/L Potassium 4.5 (3.5-5.1) mmol/L Chloride 99 (98-107) mmol/L Carbon Dioxide 35.8 H (21.0-32.0) mmol/L BUN 43 H (7-18) mg/dL Creatinine 1.01 (0.51-1.17) mg/dL Est Cr Clr Drug Dosing 39.92 Estimated GFR (MDRD) > 60 mL/min Glucose 143 H (70-99) mg/dL Lactic Acid 0.8 (0.4-2.0) mmol/L Calcium 9.5 (8.5-10.1) mg/dL Total Bilirubin (0.2-1.0) mg/dL AST (15-37) U/L ALT (12-78) U/L Alkaline Phosphatase (46-116) IU/L Troponin I 0.070 H* (0.000-0.056) ng/mL NT-Pro-B Natriuret Pep (0-125) pg/mL Total Protein (6.4-8.2) g/dL Albumin (3.4-5.0) g/dL Med Orders - Current: Current Medications Albuterol (Albuterol 0.083% 2.5 Mg/3 Ml Neb Soln) 2.5 mg INH QID PRN PRN Reason: Shortness of Breath Last Admin: 12/31/20 00:40 Dose: 2.5 mg Documented by: Albuterol/Ipratropium (Albuterol/Ipratropium 3.0-0.5 Mg/3 Ml Neb Soln) 3 ml NEB Q6HRRT PRN PRN Reason: Shortness of Breath Last Admin: 12/31/20 01:42 Dose: 3 ml Documented by: Apixaban (Apixaban 2.5 Mg Tab) 2.5 mg PO DAILY [facility] Last Admin: 12/31/20 11:34 Dose: 2.5 mg Documented by: Arformoterol Tartrate (Arformoterol 15 Mcg/2 Ml Neb Soln) 15 mcg NEB BID [place] Aspirin (Aspirin 81 Mg Tab.Chew) 81 mg PO WITHBREAKFAST [facility] Last Admin: 12/31/20 07:54 Dose: 81 mg Documented by: Azithromycin (Azithromycin 250 Mg Tab) 500 mg PO BEDTIME [facility] Last Admin: 12/31/20 01:57 Dose: 500 mg Documented by: Budesonide (Budesonide 0.5 Mg/2 Ml Neb Susp) 0.5 mg NEB BID [facility] Ceftriaxone Sodium (Ceftriaxone 1 Gm Vial) 1 gm IVPUSH Q24H [facility] Last Admin: 12/31/20 01:38 Dose: 1 gm Documented by: Melatonin (Melatonin 3 Mg Tab) 6 mg PO BEDTIME PRN PRN Reason: Insomnia Methylprednisolone Sodium Succinate (Methylprednisolone Sodium Succinate 125 Mg/2 Ml Sdv) 125 mg IVPUSH Q8H [facility] Last Admin: 12/31/20 08:03 Dose: 125 mg Documented by: Omeprazole (Omeprazole 20 Mg Cap.Cr) 20 mg PO DAILY [facility] Last Admin: 12/31/20 07:54 Dose: 20 mg Documented by: Polyethylene Glycol (Polyethylene Glycol 3350 Powder 17 Gm Packet) 17 gm PO DAILY PRN PRN Reason: Constipation Potassium Chloride (Potassium Chloride 20 Meq Tab.Er) 20 meq PO DAILY [facility] Last Admin: 12/31/20 07:55 Dose: 20 meq Documented by: Senna/Docusate Sodium (Docusate Sodium/Sennosides 50-8.6 Mg Tab) 1 tab PO BID [facility] Last Admin: 12/31/20 07:54 Dose: 1 tab Documented by: Simvastatin (Simvastatin 20 Mg Tab) 40 mg PO BEDTIME [facility] Last Admin: 12/30/20 19:54 Dose: 40 mg Documented by: Sodium Chloride (Sodium Chloride 0.9% 10 Ml Syringe) 10 ml FLUSH Q8HR PRN PRN Reason: IV Use Last Admin: 12/31/20 08:04 Dose: 10 ml Documented by: Tiotropium [place] (Tiotropium Inhaler 18 Mcg Inhalation Powder Cap Kit Of 5) 18 mcg INH DAILY [facility] Last Admin: 12/31/20 08:05 Dose: 18 mcg Documented by: Torsemide (Torsemide 10 Mg Tab) 80 mg PO DAILY [facility] Last Admin: 12/31/20 07:55 Dose: 80 mg Documented by: Torsemide (Torsemide 10 Mg Tab) 30 mg PO DAILY@1200 [facility] Last Admin: 12/31/20 11:35 Dose: 30 mg Documented by: Discontinued Medications Arformoterol Tartrate (Arformoterol 15 Mcg/2 Ml Neb Soln) 15 mcg NEB BIDRT STA Stop: 12/31/20 01:21 Last Admin: 12/31/20 01:44 Dose: 15 mcg Documented by: Aspirin (Aspirin 81 Mg Tab.Chew) 324 mg PO ONETIME ONE Stop: 12/30/20 17:34 Last Admin: 12/30/20 17:43 Dose: 324 mg Documented by: Azithromycin (Azithromycin 250 Mg Tab) 500 mg PO DAILY [facility] Azithromycin (Azithromycin 250 Mg Tab) 500 mg PO BEDTIME [facility] Budesonide (Budesonide 0.5 Mg/2 Ml Neb Susp) 0.5 mg NEB BIDRT STA Stop: 12/31/20 01:01 Last Admin: 12/31/20 01:44 Dose: 0.5 mg Documented by: Furosemide (Furosemide 40 Mg/4 Ml Vial) 40 mg IVPUSH NOW ONE Stop: 12/30/20 17:53 Last Admin: 12/30/20 18:21 Dose: 40 mg Documented by: Omeprazole (Omeprazole 20 Mg Cap.Cr) 20 mg PO DAILY@0500 [facility] Last Admin: 12/31/20 05:33 Dose: Not Given Documented by: Potassium Chloride (Potassium Chloride 20 Meq Tab.Er) 20 meq PO DAILY@0500 [facility] Last Admin: 12/31/20 05:33 Dose: Not Given Documented by: Senna/Docusate Sodium (Docusate Sodium/Sennosides 50-8.6 Mg Tab) 1 tab PO BID@05,20 [facility] Last Admin: 12/31/20 05:33 Dose: Not Given Documented by: Tiotropium [place] (Tiotropium Inhaler 18 Mcg Inhalation Powder Cap Kit Of 5) 18 mcg INH DAILY@0500 [facility] Last Admin: 12/31/20 05:33 Dose: Not Given Documented by: - Exam General: Alert, Oriented HEENT: Pupils Equal Neck: Supple, Other (He has some subclavicular retractions) Lungs: Decreased Breath Sounds (Profoundly decreased breath sounds bilaterally.), Wheezing (Inspiratory expiratory wheezing bilaterally). No: Crackles, Rales Cardiovascular: Irregular Rhythm, Murmurs GI/Abdominal Exam: Normal Bowel Sounds, Soft - Patient Data Lab Results Last 24 hrs: Laboratory Results - last 24 hr 12/30/20 12/30/20 12/30/20 Range/Units 16:50 16:50 16:50 WBC 8.7 (4.0-10.2) K/uL RBC 3.69 L (4.33-5.41) M/uL Hgb 12.3 L (13.1-16.8) g/dL Hct 38.0 L (39.0-49.0) % MCV 103.0 H (84.0-98.0) fL MCH 33.3 (28.2-33.3) pg MCHC 32.4 (31.7-36.0) g/dL RDW 16.0 H (11.2-14.1) % Plt Count 170 (150-350) K/uL Neut % (Auto) 84.6 H (45.0-80.0) % Lymph % (Auto) 4.5 L (10.0-50.0) % [place] % (Auto) 10.0 (2.0-14.0) % Eos % (Auto) 0.7 (0.0-5.0) % Baso % (Auto) 0.2 (0.0-2.0) % Neut # (Auto) 7.40 H (1.40-7.00) K/uL Lymph # (Auto) 0.39 L (0.50-3.50) K/uL [place] # (Auto) 0.87 (0.00-1.00) K/uL Eos # (Auto) 0.06 (0.00-0.50) K/uL Baso # (Auto) 0.02 (0.00-0.20) K/uL VBG pH Cancelled POC VBG pH VBG pCO2 Cancelled POC VBG pCO2 VBG pO2 Cancelled POC VBG pO2 VBG HCO3 Cancelled POC VBG HCO3 VBG Total CO2 Cancelled VBG O2 Saturation Cancelled POC Venous O2 Sat VBG Base Excess Cancelled O2 Delivery Device Cancelled Oxygen Flow Rate Cancelled Blood Gas Comments Cancelled Sodium 139 (136-145) mmol/L Potassium 4.1 (3.5-5.1) mmol/L Chloride 97 L (98-107) mmol/L Carbon Dioxide 35.2 H (21.0-32.0) mmol/L BUN 52 H (7-18) mg/dL Creatinine 1.03 (0.51-1.17) mg/dL Est Cr Clr Drug Dosing TNP Estimated GFR (MDRD) > 60 mL/min Glucose 147 H (70-99) mg/dL Lactic Acid (0.4-2.0) mmol/L Calcium 9.2 (8.5-10.1) mg/dL Total Bilirubin 0.5 (0.2-1.0) mg/dL AST 25 (15-37) U/L ALT 28 (12-78) U/L Alkaline Phosphatase 85 (46-116) IU/L Troponin I 0.064 H* (0.000-0.056) ng/mL NT-Pro-B Natriuret Pep 15351 H (0-125) pg/mL Total Protein 7.0 (6.4-8.2) g/dL Albumin 3.3 L (3.4-5.0) g/dL 12/30/20 12/30/20 12/31/20 Range/Units 16:50 20:55 01:25 WBC (4.0-10.2) K/uL RBC (4.33-5.41) M/uL Hgb (13.1-16.8) g/dL Hct (39.0-49.0) % MCV (84.0-98.0) fL MCH (28.2-33.3) pg MCHC (31.7-36.0) g/dL RDW (11.2-14.1) % Plt Count (150-350) K/uL Neut % (Auto) (45.0-80.0) % Lymph % (Auto) (10.0-50.0) % [place] % (Auto) (2.0-14.0) % Eos % (Auto) (0.0-5.0) % Baso % (Auto) (0.0-2.0) % Neut # (Auto) (1.40-7.00) K/uL Lymph # (Auto) (0.50-3.50) K/uL [place] # (Auto) (0.00-1.00) K/uL Eos # (Auto) (0.00-0.50) K/uL Baso # (Auto) (0.00-0.20) K/uL VBG pH POC VBG pH 7.35 VBG pCO2 POC VBG pCO2 64 VBG pO2 POC VBG pO2 35 VBG HCO3 POC VBG HCO3 35 VBG Total CO2 VBG O2 Saturation POC Venous O2 Sat 61 VBG Base Excess O2 Delivery Device Oxygen Flow Rate Blood Gas Comments Sodium (136-145) mmol/L Potassium (3.5-5.1) mmol/L Chloride (98-107) mmol/L Carbon Dioxide (21.0-32.0) mmol/L BUN (7-18) mg/dL Creatinine (0.51-1.17) mg/dL Est Cr Clr Drug Dosing Estimated GFR (MDRD) mL/min Glucose (70-99) mg/dL Lactic Acid (0.4-2.0) mmol/L Calcium (8.5-10.1) mg/dL Total Bilirubin (0.2-1.0) mg/dL AST (15-37) U/L ALT (12-78) U/L Alkaline Phosphatase (46-116) IU/L Troponin I 0.070 H* 0.076 H* (0.000-0.056) ng/mL NT-Pro-B Natriuret Pep (0-125) pg/mL Total Protein (6.4-8.2) g/dL Albumin (3.4-5.0) g/dL 12/31/20 12/31/20 12/31/20 Range/Units 01:25 07:13 07:13 WBC 7.7 (4.0-10.2) K/uL RBC 3.81 L (4.33-5.41) M/uL Hgb 12.8 L (13.1-16.8) g/dL Hct 38.4 L (39.0-49.0) % MCV 100.8 H (84.0-98.0) fL MCH 33.6 H (28.2-33.3) pg MCHC 33.3 (31.7-36.0) g/dL RDW 16.2 H (11.2-14.1) % Plt Count 168 (150-350) K/uL Neut % (Auto) 96.6 H (45.0-80.0) % Lymph % (Auto) 1.9 L (10.0-50.0) % [place] % (Auto) 1.3 L (2.0-14.0) % Eos % (Auto) 0.1 (0.0-5.0) % Baso % (Auto) 0.1 (0.0-2.0) % Neut # (Auto) 7.43 H (1.40-7.00) K/uL Lymph # (Auto) 0.15 L (0.50-3.50) K/uL [place] # (Auto) 0.10 (0.00-1.00) K/uL Eos # (Auto) 0.01 (0.00-0.50) K/uL Baso # (Auto) 0.01 (0.00-0.20) K/uL VBG pH POC VBG pH VBG pCO2 POC VBG pCO2 VBG pO2 POC VBG pO2 VBG HCO3 POC VBG HCO3 VBG Total CO2 VBG O2 Saturation POC Venous O2 Sat VBG Base Excess O2 Delivery Device Oxygen Flow Rate Blood Gas Comments Sodium 141 (136-145) mmol/L Potassium 4.5 (3.5-5.1) mmol/L Chloride 99 (98-107) mmol/L Carbon Dioxide 35.8 H (21.0-32.0) mmol/L BUN 43 H (7-18) mg/dL Creatinine 1.01 (0.51-1.17) mg/dL Est Cr Clr Drug Dosing 39.92 Estimated GFR (MDRD) > 60 mL/min Glucose 143 H (70-99) mg/dL Lactic Acid 0.8 (0.4-2.0) mmol/L Calcium 9.5 (8.5-10.1) mg/dL Total Bilirubin (0.2-1.0) mg/dL AST (15-37) U/L ALT (12-78) U/L Alkaline Phosphatase (46-116) IU/L Troponin I 0.070 H* (0.000-0.056) ng/mL NT-Pro-B Natriuret Pep (0-125) pg/mL Total Protein (6.4-8.2) g/dL Albumin (3.4-5.0) g/dL Result Diagrams: 12/31/20 07:13 12/31/20 07:13 Sepsis Event Note - Evaluation Sepsis Screening Result: No Definite Risk - Focused Exam Vital Signs: Vital Signs Temp Pulse Resp BP Pulse Ox 12/31/20 07:55 98.8 F 99 36 H 168/73 H 99 12/31/20 01:49 80 12 98 12/31/20 00:42 75 24 H 141/82 H 95 - Problem List & Annotations (1) COPD (chronic obstructive pulmonary disease) SNOMED Code(s): 44867428 Code(s): J44.9 - CHRONIC OBSTRUCTIVE PULMONARY DISEASE, UNSPECIFIED Status: Chronic Priority: Medium Current Visit: No Qualifiers: COPD type: unspecified COPD Qualified Code(s): J44.9 - Chronic obstructive pulmonary disease, unspecified Annotation/Comment:: He is clearly in a COPD exacerbation. He is maintaining his airway and he is alert and appropriate. We will start him on Solu-Medrol 125 3 times daily as well as aggressive budesonide a formoterol. We will start him on Rocephin as well as a azithromycin for COPD exacerbation. Not requiring any more oxygen. (2) Atrial fibrillation SNOMED Code(s): 03041339 Code(s): I48.91 - UNSPECIFIED ATRIAL FIBRILLATION Status: Chronic Priority: High Current Visit: No Qualifiers: Atrial fibrillation type: longstanding persistent Qualified Code(s): I48.11 - Longstanding persistent atrial fibrillation (3) CHF (congestive heart failure) SNOMED Code(s): 39943193 Code(s): I50.9 - HEART FAILURE, UNSPECIFIED Status: Acute Priority: High Current Visit: Yes Qualifiers: Heart failure type: unspecified Heart failure chronicity: acute on chronic Qualified Code(s): I50.9 - Heart failure, unspecified (4) Elevated troponin I level SNOMED Code(s): 437885939 Code(s): R77.8 - OTHER SPECIFIED ABNORMALITIES OF PLASMA PROTEINS Status: Acute Current Visit: Yes Annotation/Comment:: He has had multiple repeats of his troponin which are staying about 0.06-0.07 no chest pain. (5) Tinea pedis SNOMED Code(s): 1049777 Code(s): B35.3 - TINEA PEDIS Status: Acute Current Visit: Yes Qualifiers: Laterality: right Qualified Code(s): B35.3 - Tinea pedis Annotation/Comment:: Once his swelling was improved in his lower extremities it was clear that he has tinea pedis on his right toes. Cleansed dried and also start antifungal. - Problem List Review Problem List Initiated/Reviewed/Updated: Yes - My Orders Last 24 Hours: My Active Orders 12/30/20 16:39 Chest 1V Frontal [CR] Stat 12/30/20 17:52 Admission Status [Patient Status] [ADT] Routine 12/30/20 18:42 Height and Weight [RC] 08 Oxygen Therapy [RC] PRN Vital Signs [RC] Q8H Resuscitation Status Routine 12/30/20 18:43 Cardiac Monitoring [RC] 00,02,04,06,08,10,12,14,16,18,20,22 Intake and Output [RC] 06,18 12/30/20 18:51 Albuterol [Proventil Neb Soln] 2.5 mg INH QID PRN Melatonin 6 mg PO BEDTIME PRN polyethylene glycoL 3350 [MiraLAX] 17 gm PO DAILY PRN 12/30/20 18:57 RT Aerosol Therapy [RC] 0800 RT Post Treatment Assessment [RC] Click to Edit RT Pre-Treatment Assessment [RC] Click to Edit 12/30/20 20:00 Simvastatin [Zocor] 40 mg PO BEDTIME 12/31/20 01:00 Azithromycin [Zithromax] 500 mg PO BEDTIME cefTRIAXone [Rocephin] 1 gm IVPUSH Q24H methylPREDNISolone Sod Succ [Solu-MEDROL] 125 mg IVPUSH Q8H 12/31/20 01:15 PROCALCITONIN [REF] Stat 12/31/20 01:17 Albuterol/Ipratropium [DuoNeb 3.0-0.5 MG/3 ML] 3 ml NEB Q6HRRT PRN 12/31/20 01:19 RT Aerosol Therapy [RC] ASDIRECTED 12/31/20 01:20 RT Aerosol Therapy [RC] ASDIRECTED 12/31/20 01:40 Sodium Chloride 0.9% [Saline Flush] 10 ml FLUSH Q8HR PRN 12/31/20 Breakfast Heart Healthy Diet [DIET] 12/31/20 08:00 Aspirin 81 mg PO WITHBREAKFAST Docusate Sodium/Sennosides [Senna Plus] 1 tab PO BID Omeprazole 20 mg PO DAILY Potassium Chloride [Klor-Con M20] 20 meq PO DAILY Tiotropium [Spiriva HandiHaler] 18 mcg INH DAILY Torsemide [Demadex] 80 mg PO DAILY 12/31/20 10:59 Chest 1V Frontal [CR] Stat 12/31/20 11:00 Apixaban [Eliquis] 2.5 mg PO DAILY 12/31/20 11:54 RT Aerosol Therapy [RC] ASDIRECTED 12/31/20 11:55 RT Aerosol Therapy [RC] ASDIRECTED 12/31/20 12:00 Arformoterol [Brovana] 15 mcg NEB BID Budesonide [Pulmicort] 0.5 mg NEB BID Torsemide [Demadex] 30 mg PO DAILY@1200
[2020-12-31] MEDS ORDERED: Clotrimazole 1% Crm 15 GM Tube TOP SCH (12:15)
--- NOTE | 2020-12-31 13:18 | PCM.PN ---
- General Info Date of Service: 12/31/20 Admission Dx/Problem (Free Text): SOB Elevated troponin CHF COPD exacer Subjective Update: Patient relates that his breathing has improved after the therapy started last night. He has had not much of a cough or congestion. He has no chest pain. This is the second day of observation for this patient. He has diuresed well. He relates that his breathing is back to baseline although he somewhat appears worse than yesterday but better than at 1:00 this morning. He offers no complaints at this time. Functional Status: Reports: Pain Controlled, Tolerating Diet - Review of Systems General: Reports: Weakness HEENT: Reports: No Symptoms Pulmonary: Reports: No Symptoms (Although he is clearly in some respiratory mild distress) Cardiovascular: Reports: No Symptoms Gastrointestinal: Reports: No Symptoms Genitourinary: Reports: No Symptoms Musculoskeletal: Reports: No Symptoms Skin: Reports: No Symptoms Neurological: Reports: No Symptoms Psychiatric: Reports: No Symptoms - Patient Data Vitals - Most Recent: Last Vital Signs Temp 98.8 F 12/31/20 07:55 Pulse 99 12/31/20 07:55 Resp 36 H 12/31/20 07:55 BP 168/73 H 12/31/20 07:55 Pulse Ox 99 12/31/20 07:55 Weight - Most Recent: 125 lb 8 oz I&O - Last 24 Hours: Intake & Output 12/30/20 12/31/20 12/31/20 22:59 06:59 14:59 Intake Total 500 Output Total 625 600 Balance -625 -600 500 Lab Results Last 24 Hours: Laboratory Results - last 24 hr 12/30/20 12/30/20 12/30/20 Range/Units 16:50 16:50 16:50 WBC 8.7 (4.0-10.2) K/uL RBC 3.69 L (4.33-5.41) M/uL Hgb 12.3 L (13.1-16.8) g/dL Hct 38.0 L (39.0-49.0) % MCV 103.0 H (84.0-98.0) fL MCH 33.3 (28.2-33.3) pg MCHC 32.4 (31.7-36.0) g/dL RDW 16.0 H (11.2-14.1) % Plt Count 170 (150-350) K/uL Neut % (Auto) 84.6 H (45.0-80.0) % Lymph % (Auto) 4.5 L (10.0-50.0) % [place] % (Auto) 10.0 (2.0-14.0) % Eos % (Auto) 0.7 (0.0-5.0) % Baso % (Auto) 0.2 (0.0-2.0) % Neut # (Auto) 7.40 H (1.40-7.00) K/uL Lymph # (Auto) 0.39 L (0.50-3.50) K/uL [place] # (Auto) 0.87 (0.00-1.00) K/uL Eos # (Auto) 0.06 (0.00-0.50) K/uL Baso # (Auto) 0.02 (0.00-0.20) K/uL VBG pH Cancelled POC VBG pH VBG pCO2 Cancelled POC VBG pCO2 VBG pO2 Cancelled POC VBG pO2 VBG HCO3 Cancelled POC VBG HCO3 VBG Total CO2 Cancelled VBG O2 Saturation Cancelled POC Venous O2 Sat VBG Base Excess Cancelled O2 Delivery Device Cancelled Oxygen Flow Rate Cancelled Blood Gas Comments Cancelled Sodium 139 (136-145) mmol/L Potassium 4.1 (3.5-5.1) mmol/L Chloride 97 L (98-107) mmol/L Carbon Dioxide 35.2 H (21.0-32.0) mmol/L BUN 52 H (7-18) mg/dL Creatinine 1.03 (0.51-1.17) mg/dL Est Cr Clr Drug Dosing TNP Estimated GFR (MDRD) > 60 mL/min Glucose 147 H (70-99) mg/dL Lactic Acid (0.4-2.0) mmol/L Calcium 9.2 (8.5-10.1) mg/dL Total Bilirubin 0.5 (0.2-1.0) mg/dL AST 25 (15-37) U/L ALT 28 (12-78) U/L Alkaline Phosphatase 85 (46-116) IU/L Troponin I 0.064 H* (0.000-0.056) ng/mL NT-Pro-B Natriuret Pep 29186 H (0-125) pg/mL Total Protein 7.0 (6.4-8.2) g/dL Albumin 3.3 L (3.4-5.0) g/dL 12/30/20 12/30/20 12/31/20 Range/Units 16:50 20:55 01:25 WBC (4.0-10.2) K/uL RBC (4.33-5.41) M/uL Hgb (13.1-16.8) g/dL Hct (39.0-49.0) % MCV (84.0-98.0) fL MCH (28.2-33.3) pg MCHC (31.7-36.0) g/dL RDW (11.2-14.1) % Plt Count (150-350) K/uL Neut % (Auto) (45.0-80.0) % Lymph % (Auto) (10.0-50.0) % [place] % (Auto) (2.0-14.0) % Eos % (Auto) (0.0-5.0) % Baso % (Auto) (0.0-2.0) % Neut # (Auto) (1.40-7.00) K/uL Lymph # (Auto) (0.50-3.50) K/uL [place] # (Auto) (0.00-1.00) K/uL Eos # (Auto) (0.00-0.50) K/uL Baso # (Auto) (0.00-0.20) K/uL VBG pH POC VBG pH 7.35 VBG pCO2 POC VBG pCO2 64 VBG pO2 POC VBG pO2 35 VBG HCO3 POC VBG HCO3 35 VBG Total CO2 VBG O2 Saturation POC Venous O2 Sat 61 VBG Base Excess O2 Delivery Device Oxygen Flow Rate Blood Gas Comments Sodium (136-145) mmol/L Potassium (3.5-5.1) mmol/L Chloride (98-107) mmol/L Carbon Dioxide (21.0-32.0) mmol/L BUN (7-18) mg/dL Creatinine (0.51-1.17) mg/dL Est Cr Clr Drug Dosing Estimated GFR (MDRD) mL/min Glucose (70-99) mg/dL Lactic Acid (0.4-2.0) mmol/L Calcium (8.5-10.1) mg/dL Total Bilirubin (0.2-1.0) mg/dL AST (15-37) U/L ALT (12-78) U/L Alkaline Phosphatase (46-116) IU/L Troponin I 0.070 H* 0.076 H* (0.000-0.056) ng/mL NT-Pro-B Natriuret Pep (0-125) pg/mL Total Protein (6.4-8.2) g/dL Albumin (3.4-5.0) g/dL 12/31/20 12/31/20 12/31/20 Range/Units 01:25 07:13 07:13 WBC 7.7 (4.0-10.2) K/uL RBC 3.81 L (4.33-5.41) M/uL Hgb 12.8 L (13.1-16.8) g/dL Hct 38.4 L (39.0-49.0) % MCV 100.8 H (84.0-98.0) fL MCH 33.6 H (28.2-33.3) pg MCHC 33.3 (31.7-36.0) g/dL RDW 16.2 H (11.2-14.1) % Plt Count 168 (150-350) K/uL Neut % (Auto) 96.6 H (45.0-80.0) % Lymph % (Auto) 1.9 L (10.0-50.0) % [place] % (Auto) 1.3 L (2.0-14.0) % Eos % (Auto) 0.1 (0.0-5.0) % Baso % (Auto) 0.1 (0.0-2.0) % Neut # (Auto) 7.43 H (1.40-7.00) K/uL Lymph # (Auto) 0.15 L (0.50-3.50) K/uL [place] # (Auto) 0.10 (0.00-1.00) K/uL Eos # (Auto) 0.01 (0.00-0.50) K/uL Baso # (Auto) 0.01 (0.00-0.20) K/uL VBG pH POC VBG pH VBG pCO2 POC VBG pCO2 VBG pO2 POC VBG pO2 VBG HCO3 POC VBG HCO3 VBG Total CO2 VBG O2 Saturation POC Venous O2 Sat VBG Base Excess O2 Delivery Device Oxygen Flow Rate Blood Gas Comments Sodium 141 (136-145) mmol/L Potassium 4.5 (3.5-5.1) mmol/L Chloride 99 (98-107) mmol/L Carbon Dioxide 35.8 H (21.0-32.0) mmol/L BUN 43 H (7-18) mg/dL Creatinine 1.01 (0.51-1.17) mg/dL Est Cr Clr Drug Dosing 39.92 Estimated GFR (MDRD) > 60 mL/min Glucose 143 H (70-99) mg/dL Lactic Acid 0.8 (0.4-2.0) mmol/L Calcium 9.5 (8.5-10.1) mg/dL Total Bilirubin (0.2-1.0) mg/dL AST (15-37) U/L ALT (12-78) U/L Alkaline Phosphatase (46-116) IU/L Troponin I 0.070 H* (0.000-0.056) ng/mL NT-Pro-B Natriuret Pep (0-125) pg/mL Total Protein (6.4-8.2) g/dL Albumin (3.4-5.0) g/dL Med Orders - Current: Current Medications Albuterol (Albuterol 0.083% 2.5 Mg/3 Ml Neb Soln) 2.5 mg INH QID PRN PRN Reason: Shortness of Breath Last Admin: 12/31/20 00:40 Dose: 2.5 mg Documented by: Albuterol/Ipratropium (Albuterol/Ipratropium 3.0-0.5 Mg/3 Ml Neb Soln) 3 ml NEB Q6HRRT PRN PRN Reason: Shortness of Breath Last Admin: 12/31/20 01:42 Dose: 3 ml Documented by: Apixaban (Apixaban 2.5 Mg Tab) 2.5 mg PO DAILY [facility] Last Admin: 12/31/20 11:34 Dose: 2.5 mg Documented by: Arformoterol Tartrate (Arformoterol 15 Mcg/2 Ml Neb Soln) 15 mcg NEB BID [facility] Aspirin (Aspirin 81 Mg Tab.Chew) 81 mg PO WITHBREAKFAST [facility] Last Admin: 12/31/20 07:54 Dose: 81 mg Documented by: Azithromycin (Azithromycin 250 Mg Tab) 500 mg PO BEDTIME [facility] Last Admin: 12/31/20 01:57 Dose: 500 mg Documented by: Budesonide (Budesonide 0.5 Mg/2 Ml Neb Susp) 0.5 mg NEB BID [facility] Ceftriaxone Sodium (Ceftriaxone 1 Gm Vial) 1 gm IVPUSH Q24H [facility] Last Admin: 12/31/20 01:38 Dose: 1 gm Documented by: Clotrimazole (Clotrimazole 1% Crm 15 Gm Tube) 1 gm TOP BID [facility] Melatonin (Melatonin 3 Mg Tab) 6 mg PO BEDTIME PRN PRN Reason: Insomnia Methylprednisolone Sodium Succinate (Methylprednisolone Sodium Succinate 125 Mg/ 2 Ml Sdv) 125 mg IVPUSH Q8H [facility] Last Admin: 12/31/20 08:03 Dose: 125 mg Documented by: Omeprazole (Omeprazole 20 Mg Cap.Cr) 20 mg PO DAILY [facility] Last Admin: 12/31/20 07:54 Dose: 20 mg Documented by: Polyethylene Glycol (Polyethylene Glycol 3350 Powder 17 Gm Packet) 17 gm PO DAILY PRN PRN Reason: Constipation Potassium Chloride (Potassium Chloride 20 Meq Tab.Er) 20 meq PO DAILY [facility] Last Admin: 12/31/20 07:55 Dose: 20 meq Documented by: Senna/Docusate Sodium (Docusate Sodium/Sennosides 50-8.6 Mg Tab) 1 tab PO BID [facility] Last Admin: 12/31/20 07:54 Dose: 1 tab Documented by: Simvastatin (Simvastatin 20 Mg Tab) 40 mg PO BEDTIME [facility] Last Admin: 12/30/20 19:54 Dose: 40 mg Documented by: Sodium Chloride (Sodium Chloride 0.9% 10 Ml Syringe) 10 ml FLUSH Q8HR PRN PRN Reason: IV Use Last Admin: 12/31/20 08:04 Dose: 10 ml Documented by: Tiotropium [place] (Tiotropium Inhaler 18 Mcg Inhalation Powder Cap Kit Of 5) 18 mcg INH DAILY [facility] Last Admin: 12/31/20 08:05 Dose: 18 mcg Documented by: Torsemide (Torsemide 10 Mg Tab) 80 mg PO DAILY [facility] Last Admin: 12/31/20 07:55 Dose: 80 mg Documented by: Torsemide (Torsemide 10 Mg Tab) 30 mg PO DAILY@1200 [facility] Last Admin: 12/31/20 11:35 Dose: 30 mg Documented by: Discontinued Medications Arformoterol Tartrate (Arformoterol 15 Mcg/2 Ml Neb Soln) 15 mcg NEB BIDRT [facility] Stop: 12/31/20 01:21 Last Admin: 12/31/20 01:44 Dose: 15 mcg Documented by: Aspirin (Aspirin 81 Mg Tab.Chew) 324 mg PO ONETIME ONE Stop: 12/30/20 17:34 Last Admin: 12/30/20 17:43 Dose: 324 mg Documented by: Azithromycin (Azithromycin 250 Mg Tab) 500 mg PO DAILY [facility] Azithromycin (Azithromycin 250 Mg Tab) 500 mg PO BEDTIME [facility] Budesonide (Budesonide 0.5 Mg/2 Ml Neb Susp) 0.5 mg NEB BIDRT [facility] Stop: 12/31/20 01:01 Last Admin: 12/31/20 01:44 Dose: 0.5 mg Documented by: Furosemide (Furosemide 40 Mg/4 Ml Vial) 40 mg IVPUSH NOW ONE Stop: 12/30/20 17:53 Last Admin: 12/30/20 18:21 Dose: 40 mg Documented by: Omeprazole (Omeprazole 20 Mg Cap.Cr) 20 mg PO DAILY@0500 [facility] Last Admin: 12/31/20 05:33 Dose: Not Given Documented by: Potassium Chloride (Potassium Chloride 20 Meq Tab.Er) 20 meq PO DAILY@0500 [facility] Last Admin: 12/31/20 05:33 Dose: Not Given Documented by: Senna/Docusate Sodium (Docusate Sodium/Sennosides 50-8.6 Mg Tab) 1 tab PO BID@05,20 [facility] Last Admin: 12/31/20 05:33 Dose: Not Given Documented by: Tiotropium [place] (Tiotropium Inhaler 18 Mcg Inhalation Powder Cap Kit Of 5) 18 mcg INH DAILY@0500 [facility] Last Admin: 12/31/20 05:33 Dose: Not Given Documented by: - Exam Quality Assessment: Supplemental Oxygen General: Alert, Oriented HEENT: Pupils Equal, Pupils Reactive Neck: Supple Lungs: Decreased Breath Sounds (He is still quite decreased throughout but he has improved. He has some expiratory wheezing. He is able to speak in about 5- 6 word sentences.). No: Crackles, Rales Cardiovascular: Irregular Rhythm, Murmurs GI/Abdominal Exam: Normal Bowel Sounds, Soft (Male) Exam: Deferred Extremities: Pedal Edema (3+ his edema is actually quite markedly better than yesterday. He actually has some wrinkles in the skin of his feet. The tendern ess to his legs is much improved. He does clearly have some tinea pedis of his toes of the right foot without secondary infection.) Skin: Warm Neurological: No New Focal Deficit Psy/Mental Status: Alert, Normal Affect, Normal Mood - Patient Data Lab Results Last 24 hrs: Laboratory Results - last 24 hr 12/30/20 12/30/20 12/30/20 Range/Units 16:50 16:50 16:50 WBC 8.7 (4.0-10.2) K/uL RBC 3.69 L (4.33-5.41) M/uL Hgb 12.3 L (13.1-16.8) g/dL Hct 38.0 L (39.0-49.0) % MCV 103.0 H (84.0-98.0) fL MCH 33.3 (28.2-33.3) pg MCHC 32.4 (31.7-36.0) g/dL RDW 16.0 H (11.2-14.1) % Plt Count 170 (150-350) K/uL Neut % (Auto) 84.6 H (45.0-80.0) % Lymph % (Auto) 4.5 L (10.0-50.0) % [place] % (Auto) 10.0 (2.0-14.0) % Eos % (Auto) 0.7 (0.0-5.0) % Baso % (Auto) 0.2 (0.0-2.0) % Neut # (Auto) 7.40 H (1.40-7.00) K/uL Lymph # (Auto) 0.39 L (0.50-3.50) K/uL [place] # (Auto) 0.87 (0.00-1.00) K/uL Eos # (Auto) 0.06 (0.00-0.50) K/uL Baso # (Auto) 0.02 (0.00-0.20) K/uL VBG pH Cancelled POC VBG pH VBG pCO2 Cancelled POC VBG pCO2 VBG pO2 Cancelled POC VBG pO2 VBG HCO3 Cancelled POC VBG HCO3 VBG Total CO2 Cancelled VBG O2 Saturation Cancelled POC Venous O2 Sat VBG Base Excess Cancelled O2 Delivery Device Cancelled Oxygen Flow Rate Cancelled Blood Gas Comments Cancelled Sodium 139 (136-145) mmol/L Potassium 4.1 (3.5-5.1) mmol/L Chloride 97 L (98-107) mmol/L Carbon Dioxide 35.2 H (21.0-32.0) mmol/L BUN 52 H (7-18) mg/dL Creatinine 1.03 (0.51-1.17) mg/dL Est Cr Clr Drug Dosing TNP Estimated GFR (MDRD) > 60 mL/min Glucose 147 H (70-99) mg/dL Lactic Acid (0.4-2.0) mmol/L Calcium 9.2 (8.5-10.1) mg/dL Total Bilirubin 0.5 (0.2-1.0) mg/dL AST 25 (15-37) U/L ALT 28 (12-78) U/L Alkaline Phosphatase 85 (46-116) IU/L Troponin I 0.064 H* (0.000-0.056) ng/mL NT-Pro-B Natriuret Pep 44184 H (0-125) pg/mL Total Protein 7.0 (6.4-8.2) g/dL Albumin 3.3 L (3.4-5.0) g/dL 12/30/20 12/30/20 12/31/20 Range/Units 16:50 20:55 01:25 WBC (4.0-10.2) K/uL RBC (4.33-5.41) M/uL Hgb (13.1-16.8) g/dL Hct (39.0-49.0) % MCV (84.0-98.0) fL MCH (28.2-33.3) pg MCHC (31.7-36.0) g/dL RDW (11.2-14.1) % Plt Count (150-350) K/uL Neut % (Auto) (45.0-80.0) % Lymph % (Auto) (10.0-50.0) % [place] % (Auto) (2.0-14.0) % Eos % (Auto) (0.0-5.0) % Baso % (Auto) (0.0-2.0) % Neut # (Auto) (1.40-7.00) K/uL Lymph # (Auto) (0.50-3.50) K/uL [place] # (Auto) (0.00-1.00) K/uL Eos # (Auto) (0.00-0.50) K/uL Baso # (Auto) (0.00-0.20) K/uL VBG pH POC VBG pH 7.35 VBG pCO2 POC VBG pCO2 64 VBG pO2 POC VBG pO2 35 VBG HCO3 POC VBG HCO3 35 VBG Total CO2 VBG O2 Saturation POC Venous O2 Sat 61 VBG Base Excess O2 Delivery Device Oxygen Flow Rate Blood Gas Comments Sodium (136-145) mmol/L Potassium (3.5-5.1) mmol/L Chloride (98-107) mmol/L Carbon Dioxide (21.0-32.0) mmol/L BUN (7-18) mg/dL Creatinine (0.51-1.17) mg/dL Est Cr Clr Drug Dosing Estimated GFR (MDRD) mL/min Glucose (70-99) mg/dL Lactic Acid (0.4-2.0) mmol/L Calcium (8.5-10.1) mg/dL Total Bilirubin (0.2-1.0) mg/dL AST (15-37) U/L ALT (12-78) U/L Alkaline Phosphatase (46-116) IU/L Troponin I 0.070 H* 0.076 H* (0.000-0.056) ng/mL NT-Pro-B Natriuret Pep (0-125) pg/mL Total Protein (6.4-8.2) g/dL Albumin (3.4-5.0) g/dL 12/31/20 12/31/20 12/31/20 Range/Units 01:25 07:13 07:13 WBC 7.7 (4.0-10.2) K/uL RBC 3.81 L (4.33-5.41) M/uL Hgb 12.8 L (13.1-16.8) g/dL Hct 38.4 L (39.0-49.0) % MCV 100.8 H (84.0-98.0) fL MCH 33.6 H (28.2-33.3) pg MCHC 33.3 (31.7-36.0) g/dL RDW 16.2 H (11.2-14.1) % Plt Count 168 (150-350) K/uL Neut % (Auto) 96.6 H (45.0-80.0) % Lymph % (Auto) 1.9 L (10.0-50.0) % [place] % (Auto) 1.3 L (2.0-14.0) % Eos % (Auto) 0.1 (0.0-5.0) % Baso % (Auto) 0.1 (0.0-2.0) % Neut # (Auto) 7.43 H (1.40-7.00) K/uL Lymph # (Auto) 0.15 L (0.50-3.50) K/uL [place] # (Auto) 0.10 (0.00-1.00) K/uL Eos # (Auto) 0.01 (0.00-0.50) K/uL Baso # (Auto) 0.01 (0.00-0.20) K/uL VBG pH POC VBG pH VBG pCO2 POC VBG pCO2 VBG pO2 POC VBG pO2 VBG HCO3 POC VBG HCO3 VBG Total CO2 VBG O2 Saturation POC Venous O2 Sat VBG Base Excess O2 Delivery Device Oxygen Flow Rate Blood Gas Comments Sodium 141 (136-145) mmol/L Potassium 4.5 (3.5-5.1) mmol/L Chloride 99 (98-107) mmol/L Carbon Dioxide 35.8 H (21.0-32.0) mmol/L BUN 43 H (7-18) mg/dL Creatinine 1.01 (0.51-1.17) mg/dL Est Cr Clr Drug Dosing 39.92 Estimated GFR (MDRD) > 60 mL/min Glucose 143 H (70-99) mg/dL Lactic Acid 0.8 (0.4-2.0) mmol/L Calcium 9.5 (8.5-10.1) mg/dL Total Bilirubin (0.2-1.0) mg/dL AST (15-37) U/L ALT (12-78) U/L Alkaline Phosphatase (46-116) IU/L Troponin I 0.070 H* (0.000-0.056) ng/mL NT-Pro-B Natriuret Pep (0-125) pg/mL Total Protein (6.4-8.2) g/dL Albumin (3.4-5.0) g/dL Result Diagrams: 12/31/20 07:13 12/31/20 07:13 Sepsis Event Note - Evaluation Sepsis Screening Result: No Definite Risk - Focused Exam Vital Signs: Vital Signs Temp Pulse Resp BP Pulse Ox 12/31/20 07:55 98.8 F 99 36 H 168/73 H 99 12/31/20 01:49 80 12 98 - Problem List & Annotations (1) COPD (chronic obstructive pulmonary disease) SNOMED Code(s): 18179322 Code(s): J44.9 - CHRONIC OBSTRUCTIVE PULMONARY DISEASE, UNSPECIFIED Status: Chronic Priority: Medium Current Visit: No Qualifiers: COPD type: unspecified COPD Qualified Code(s): J44.9 - Chronic obstructive pulmonary disease, unspecified Annotation/Comment:: He is clearly in a COPD exacerbation. Has improved since our visit at about 1:00 this morning. We will continue with his nebulizers aggressive steroids as well as antibiotics. We will switch him to inpatient status due to his worsening COPD exacerbation. (2) Atrial fibrillation SNOMED Code(s): 97614088 Code(s): I48.91 - UNSPECIFIED ATRIAL FIBRILLATION Status: Chronic Prior ity: High Current Visit: No Qualifiers: Atrial fibrillation type: longstanding persistent Qualified Code(s): I48.11 - Longstanding persistent atrial fibrillation Annotation/Comment:: In a fib, on Eliquis. Rate controlled. No CP. (3) CHF (congestive heart failure) SNOMED Code(s): 86480684 Code(s): I50.9 - HEART FAILURE, UNSPECIFIED Status: Acute Priority: High Current Visit: Yes Qualifiers: Heart failure type: unspecified Heart failure chronicity: acute on chronic Qualified Code(s): I50.9 - Heart failure, unspecified Annotation/Comment:: Diuresed well with the one-time increased dose of Lasix yesterday with about 1200 mils. He is not requiring any higher oxygen concentration. His edema of his lower extremities is much improved. He has no rales in his chest. We will repeat a chest x-ray today as he has much worsening breathing although this is most likely due to COPD exacerbation and not conge stive heart failure. (4) Elevated troponin I level SNOMED Code(s): 700768344 Code(s): R77.8 - OTHER SPECIFIED ABNORMALITIES OF PLASMA PROTEINS Status: Acute Current Visit: Yes Annotation/Comment:: He has had multiple repeats of his troponin which are staying about 0.06-0.07 no chest pain. (5) Tinea pedis SNOMED Code(s): 9627471 Code(s): B35.3 - TINEA PEDIS Status: Acute Current Visit: Yes Qualifiers: Laterality: right Qualified Code(s): B35.3 - Tinea pedis Annotation/Comment:: Once his swelling was improved in his lower extremities it was clear that he has tinea pedis on his right toes. Cleansed dried and also start antifungal. - Problem List Review Problem List Initiated/Reviewed/Updated: Yes - My Orders Last 24 Hours: My Active Orders 12/30/20 16:39 Chest 1V Frontal [CR] Stat 12/30/20 17:52 Admission Status [Patient Status] [ADT] Routine 12/30/20 18:42 Height and Weight [RC] 08 Oxygen Therapy [RC] PRN Vital Signs [RC] Q8H Resuscitation Status Routine 12/30/20 18:43 Cardiac Monitoring [RC] 00,02,04,06,08,10,12,14,16,18,20,22 Intake and Output [RC] 06,18 12/30/20 18:51 Albuterol [Proventil Neb Soln] 2.5 mg INH QID PRN Melatonin 6 mg PO BEDTIME PRN polyethylene glycoL 3350 [MiraLAX] 17 gm PO DAILY PRN 12/30/20 18:57 RT Aerosol Therapy [RC] 0800 RT Post Treatment Assessment [RC] Click to Edit RT Pre-Treatment Assessment [RC] Click to Edit 12/30/20 20:00 Simvastatin [Zocor] 40 mg PO BEDTIME 12/31/20 01:00 Azithromycin [Zithromax] 500 mg PO BEDTIME cefTRIAXone [Rocephin] 1 gm IVPUSH Q24H methylPREDNISolone Sod Succ [Solu-MEDROL] 125 mg IVPUSH Q8H 12/31/20 01:15 PROCALCITONIN [REF] Stat 12/31/20 01:17 Albuterol/Ipratropium [DuoNeb 3.0-0.5 MG/3 ML] 3 ml NEB Q6HRRT PRN 12/31/20 01:19 RT Aerosol Therapy [RC] ASDIRECTED 12/31/20 01:20 RT Aerosol Therapy [RC] ASDIRECTED 12/31/20 01:40 Sodium Chloride 0.9% [Saline Flush] 10 ml FLUSH Q8HR PRN 12/31/20 Breakfast Heart Healthy Diet [DIET] 12/31/20 08:00 Aspirin 81 mg PO WITHBREAKFAST Docusate Sodium/Sennosides [Senna Plus] 1 tab PO BID Omeprazole 20 mg PO DAILY Potassium Chloride [Klor-Con M20] 20 meq PO DAILY Tiotropium [Spiriva HandiHaler] 18 mcg INH DAILY Torsemide [Demadex] 80 mg PO DAILY 12/31/20 10:59 Chest 1V Frontal [CR] Stat 12/31/20 11:00 Apixaban [Eliquis] 2.5 mg PO DAILY 12/31/20 11:54 RT Aerosol Therapy [RC] ASDIRECTED 12/31/20 11:55 RT Aerosol Therapy [RC] ASDIRECTED 12/31/20 12:00 Arformoterol [Brovana] 15 mcg NEB BID Budesonide [Pulmicort] 0.5 mg NEB BID Torsemide [Demadex] 30 mg PO DAILY@1200 12/31/20 12:15 Clotrimazole [Clotrimazole 1%] 1 gm TOP BID - Assessment Assessment:: As above - Plan Plan:: As above. The patient was changed to inpatient status at 1am this morning at this time due to his COPD exacerbation. I feel that he will need aggressive management for the next day or 2 as well as close monitoring with his elevation of his troponin and congestive heart failure. VTE: He is on Eliquis for his atrial fibrillation. Sepsis no signs of sepsis at this time. Rocephin and azithromycin for COPD exacerbation I discussed at length with the patient that the dire congestive heart failure as well as COPD and his risk of deterioration he is comfortable with not being transferred at this time and he feels that we are on top of his care. I do not see more than 2 days of admission into this hospital due to his severe COPD history as well as his exacerbation and elevated troponin. [facility] to ensure that they are comfortable with inpatient hospitalization here.
[2020-12-31] MEDS: Clotrimazole 1% Crm 30 GM Tube TOP SCH ×2 (13:40→19:50)
[2020-12-31] MEDS: Budesonide 0.5 MG/2 ML Neb Susp NEB SCH ×2 (13:50→17:49)
[2020-12-31] MEDS: Arformoterol 15 MCG/2 ML Neb Soln NEB SCH ×2 (13:50→17:49)
--- NOTE | 2020-12-31 15:44 | PCM.SN.2 ---
- Free Text/Narrative Note: I spoke with the [facility] in [place] Kira RN at [facility]. HPI Hospital course and need for inpatient management with COPD exacerbation and they have given the approval to keep the patient here in [place] at this time with a short stay.
[2020-12-31] MEDS: Simvastatin 20 MG Tab PO SCH (19:49)
[2021-01-01] MEDS: cefTRIAXone 1 GM Vial IVPUSH SCH (00:09)
[2021-01-01] MEDS: methylPREDNISolone Sodium Succinate 125 MG/2 ML SDV IVPUSH SCH ×2 (00:10→08:23)
[2021-01-01 08:07] LABS: CHLORIDE,CL 96 mmol/L (98-107); SODIUM,NA 138 mmol/L (136-145)
[2021-01-01] MEDS: Arformoterol 15 MCG/2 ML Neb Soln NEB SCH ×2 (08:19→17:35)
[2021-01-01] MEDS: Tiotropium Inhaler 18 MCG Inhalation Powder Cap Kit of 5 INH SCH (08:19)
[2021-01-01] MEDS: Budesonide 0.5 MG/2 ML Neb Susp NEB SCH ×2 (08:19→17:35)
[2021-01-01] MEDS: Aspirin 81 MG Tab.Chew PO SCH (08:21)
[2021-01-01] MEDS: Clotrimazole 1% Crm 30 GM Tube TOP SCH ×2 (08:22→19:46)
[2021-01-01] MEDS: Omeprazole 20 MG Cap.CR PO SCH (08:22)
[2021-01-01] MEDS: Apixaban 2.5 MG Tab PO SCH (08:22)
[2021-01-01] MEDS: Potassium Chloride 20 MEQ Tab.ER PO SCH (08:22)
[2021-01-01] MEDS: Sodium Chloride 0.9% 10 ML Syringe FLUSH PRN (08:23)
[2021-01-01] MEDS: predniSONE 20 MG Tab PO SCH ×2 (11:43→17:35)
--- NOTE | 2021-01-01 14:06 | PCM.PN ---
- General Info Date of Service: 01/01/21 Admission Dx/Problem (Free Text): SOB Elevated troponin CHF COPD exacer Subjective Update: This is hospital day 3 #2 of inpatient management for this patient with COPD exacerbation elevated troponin congestive heart failure. He really feels like he is back to baseline. He is at no respiratory distress when he is sitting still. He has been eating and drinking well. He has been voiding and having bowel movements. No fever no chills. No cough or congestion. He is getting some of his strength back and feels that he is strong enough to [facility]. His only complaints today are of his chronic achiness to his lower extremities from his pedal edema. Functional Status: Reports: Pain Controlled - Review of Systems General: Reports: Weakness HEENT: Reports: No Symptoms Pulmonary: Reports: No Symptoms (At baseline) Cardiovascular: Reports: No Symptoms Gastrointestinal: Reports: No Symptoms Genitourinary: Reports: No Symptoms Skin: Reports: No Symptoms Neurological: Reports: No Symptoms Psychiatric: Reports: No Symptoms - Patient Data Vitals - Most Recent: Last Vital Signs Temp 97.7 F 01/01/21 08:00 Pulse 75 01/01/21 08:00 Resp 22 H 01/01/21 08:00 BP 142/83 H 01/01/21 08:00 Pulse Ox 99 01/01/21 08:00 Weight - Most Recent: 124 lb 12.8 oz I&O - Last 24 Hours: Intake & Output 12/31/20 01/01/21 01/01/21 22:59 06:59 14:59 Intake Total 240 720 480 Output Total 400 Balance 240 320 480 Lab Results Last 24 Hours: Laboratory Results - last 24 hr 12/31/20 01/01/21 01/01/21 Range/Units 01:15 07:39 07:39 WBC 10.8 H (4.0-10.2) K/uL RBC 3.77 L (4.33-5.41) M/uL Hgb 12.4 L (13.1-16.8) g/dL Hct 39.0 (39.0-49.0) % MCV 103.4 H (84.0-98.0) fL MCH 32.9 (28.2-33.3) pg MCHC 31.8 (31.7-36.0) g/dL RDW 16.2 H (11.2-14.1) % Plt Count 169 (150-350) K/uL Neut % (Auto) 93.1 H (45.0-80.0) % Lymph % (Auto) 2.5 L (10.0-50.0) % [place] % (Auto) 4.3 (2.0-14.0) % Eos % (Auto) 0.0 (0.0-5.0) % Baso % (Auto) 0.1 (0.0-2.0) % Neut # (Auto) 10.06 H (1.40-7.00) K/uL Lymph # (Auto) 0.27 L (0.50-3.50) K/uL [place] # (Auto) 0.47 (0.00-1.00) K/uL Eos # (Auto) 0.00 (0.00-0.50) K/uL Baso # (Auto) 0.01 (0.00-0.20) K/uL Sodium 138 (136-145) mmol/L Potassium 4.6 (3.5-5.1) mmol/L Chloride 96 L (98-107) mmol/L Carbon Dioxide 35.2 H (21.0-32.0) mmol/L BUN 52 H (7-18) mg/dL Creatinine 1.05 (0.51-1.17) mg/dL Est Cr Clr Drug Dosing 37.79 mL/min Estimated GFR (MDRD) > 60 mL/min Glucose 168 H (70-99) mg/dL Lactic Acid (0.4-2.0) mmol/L Calcium 9.8 (8.5-10.1) mg/dL Troponin I 0.065 H* (0.000-0.056) ng/mL Procalcitonin 0.10 H ng/mL 01/01/21 Range/Units 07:39 WBC (4.0-10.2) K/uL RBC (4.33-5.41) M/uL Hgb (13.1-16.8) g/dL Hct (39.0-49.0) % MCV (84.0-98.0) fL MCH (28.2-33.3) pg MCHC (31.7-36.0) g/dL RDW (11.2-14.1) % Plt Count (150-350) K/uL Neut % (Auto) (45.0-80.0) % Lymph % (Auto) (10.0-50.0) % [place] % (Auto) (2.0-14.0) % Eos % (Auto) (0.0-5.0) % Baso % (Auto) (0.0-2.0) % Neut # (Auto) (1.40-7.00) K/uL Lymph # (Auto) (0.50-3.50) K/uL [place] # (Auto) (0.00-1.00) K/uL Eos # (Auto) (0.00-0.50) K/uL Baso # (Auto) (0.00-0.20) K/uL Sodium (136-145) mmol/L Potassium (3.5-5.1) mmol/L Chloride (98-107) mmol/L Carbon Dioxide (21.0-32.0) mmol/L BUN (7-18) mg/dL Creatinine (0.51-1.17) mg/dL Est Cr Clr Drug Dosing mL/min Estimated GFR (MDRD) mL/min Glucose (70-99) mg/dL Lactic Acid 4.1 H (0.4-2.0) mmol/L Calcium (8.5-10.1) mg/dL Troponin I (0.000-0.056) ng/mL Procalcitonin ng/mL Med Orders - Current: Current Medications Albuterol (Albuterol 0.083% 2.5 Mg/3 Ml Neb Soln) 2.5 mg INH QID PRN PRN Reason: Shortness of Breath Last Admin: 12/31/20 00:40 Dose: 2.5 mg Documented by: Albuterol/Ipratropium (Albuterol/Ipratropium 3.0-0.5 Mg/3 Ml Neb Soln) 3 ml NEB Q6HRRT PRN PRN Reason: Shortness of Breath Last Admin: 12/31/20 01:42 Dose: 3 ml Documented by: Apixaban (Apixaban 2.5 Mg Tab) 2.5 mg PO DAILY [facility] Last Admin: 01/01/21 08:22 Dose: 2.5 mg Documented by: Arformoterol Tartrate (Arformoterol 15 Mcg/2 Ml Neb Soln) 15 mcg NEB BID [facility] Last Admin: 01/01/21 08:19 Dose: 15 mcg Documented by: Aspirin (Aspirin 81 Mg Tab.Chew) 81 mg PO WITHBREAKFAST [facility] Last Admin: 01/01/21 08:21 Dose: 81 mg Documented by: Azithromycin (Azithromycin 250 Mg Tab) 500 mg PO BEDTIME [facility] Last Admin: 12/31/20 19:49 Dose: 500 mg Documented by: Budesonide (Budesonide 0.5 Mg/2 Ml Neb Susp) 0.5 mg NEB BID [facility] Last Admin: 01/01/21 08:19 Dose: 0.5 mg Documented by: Ceftriaxone Sodium (Ceftriaxone 1 Gm Vial) 1 gm IVPUSH Q24H [facility] Last Admin: 01/01/21 00:09 Dose: 1 gm Documented by: Clotrimazole (Clotrimazole 1% Crm 30 Gm Tube) 1 gm TOP Q12HR [facility] Last Admin: 01/01/21 08:22 Dose: 1 applic Documented by: Melatonin (Melatonin 3 Mg Tab) 6 mg PO BEDTIME PRN PRN Reason: Insomnia Omeprazole (Omeprazole 20 Mg Cap.Cr) 20 mg PO DAILY [facility] Last Admin: 01/01/21 08:22 Dose: 20 mg Documented by: Polyethylene Glycol (Polyethylene Glycol 3350 Powder 17 Gm Packet) 17 gm PO DAILY PRN PRN Reason: Constipation Potassium Chloride (Potassium Chloride 20 Meq Tab.Er) 20 meq PO DAILY [facility] Last Admin: 01/01/21 08:22 Dose: 20 meq Documented by: Prednisone (Prednisone 20 Mg Tab) 30 mg PO BID [facility] Last Admin: 01/01/21 11:43 Dose: 30 mg Documented by: Senna/Docusate Sodium (Docusate Sodium/Sennosides 50-8.6 Mg Tab) 1 tab PO BID [facility] Last Admin: 01/01/21 08:22 Dose: 1 tab Documented by: Simvastatin (Simvastatin 20 Mg Tab) 40 mg PO BEDTIME [facility] Last Admin: 12/31/20 19:49 Dose: 40 mg Documented by: Sodium Chloride (Sodium Chloride 0.9% 10 Ml Syringe) 10 ml FLUSH Q8HR PRN PRN Reason: IV Use Last Admin: 01/01/21 08:23 Dose: 10 ml Documented by: Tiotropium [place] (Tiotropium Inhaler 18 Mcg Inhalation Powder Cap Kit Of 5) 18 mcg INH DAILY [facility] Last Admin: 01/01/21 08:19 Dose: 18 mcg Documented by: Torsemide (Torsemide 10 Mg Tab) 80 mg PO DAILY [facility] Last Admin: 01/01/21 08:21 Dose: 80 mg Documented by: Torsemide (Torsemide 10 Mg Tab) 30 mg PO DAILY@1200 [facility] Last Admin: 01/01/21 11:42 Dose: 30 mg Documented by: Discontinued Medications Arformoterol Tartrate (Arformoterol 15 Mcg/2 Ml Neb Soln) 15 mcg NEB BIDRT STA Stop: 12/31/20 01:21 Last Admin: 12/31/20 01:44 Dose: 15 mcg Documented by: Aspirin (Aspirin 81 Mg Tab.Chew) 324 mg PO ONETIME ONE Stop: 12/30/20 17:34 Last Admin: 12/30/20 17:43 Dose: 324 mg Documented by: Azithromycin (Azithromycin 250 Mg Tab) 500 mg PO DAILY [facility] Azithromycin (Azithromycin 250 Mg Tab) 500 mg PO BEDTIME [facility] Budesonide (Budesonide 0.5 Mg/2 Ml Neb Susp) 0.5 mg NEB BIDRT STA Stop: 12/31/20 01:01 Last Admin: 12/31/20 01:44 Dose: 0.5 mg Documented by: Clotrimazole (Clotrimazole 1% Crm 15 Gm Tube) 1 gm TOP BID [facility] Last Admin: 12/31/20 16:44 Dose: Not Given Documented by: Furosemide (Furosemide 40 Mg/4 Ml Vial) 40 mg IVPUSH NOW ONE Stop: 12/30/20 17:53 Last Admin: 12/30/20 18:21 Dose: 40 mg Documented by: Methylprednisolone Sodium Succinate (Methylprednisolone Sodium Succinate 125 Mg/ 2 Ml Sdv) 125 mg IVPUSH Q8H [facility] Last Admin: 01/01/21 08:23 Dose: 125 mg Documented by: Omeprazole (Omeprazole 20 Mg Cap.Cr) 20 mg PO DAILY@0500 [facility] Last Admin: 12/31/20 05:33 Dose: Not Given Documented by: Potassium Chloride (Potassium Chloride 20 Meq Tab.Er) 20 meq PO DAILY@0500 [facility] Last Admin: 12/31/20 05:33 Dose: Not Given Documented by: Senna/Docusate Sodium (Docusate Sodium/Sennosides 50-8.6 Mg Tab) 1 tab PO BID@05,20 [facility] Last Admin: 12/31/20 05:33 Dose: Not Given Documented by: Tiotropium [place] (Tiotropium Inhaler 18 Mcg Inhalation Powder Cap Kit Of 5) 18 mcg INH DAILY@0500 [facility] Last Admin: 12/31/20 05:33 Dose: Not Given Documented by: Comments:: He is sitting up in the chair when I enter the room. He had just ambulated to the chair and becomes quite short of breath but he resolves and gets back to no distress very quickly. There is no labored breathing. He is able to speak with me in full sentences when she catches his breath. - Exam Quality Assessment: Supplemental Oxygen (We have been able to decrease his oxygen down to 1.5 L.) General: Alert, Oriented HEENT: Pupils Equal Neck: Supple Lungs: Decreased Breath Sounds (Decreased throughout but improved from yesterday. No wheezing no increased work of breathing.) Cardiovascular: Irregular Rhythm, Murmurs GI/Abdominal Exam: Normal Bowel Sounds, Soft, Non-Tender (Male) Exam: Deferred Back Exam: Normal Inspection Extremities: Pedal Edema (His pedal edema continues to improve. There is a small amount of weeping still on the left lateral lower extremity but this is improving.) Skin: Rash (The tinea pedis on his right foot is unchanged but not worsening) Neurological: No New Focal Deficit Psy/Mental Status: Alert, Normal Affect - Patient Data Lab Results Last 24 hrs: Laboratory Results - last 24 hr 12/31/20 01/01/21 01/01/21 Range/Units 01:15 07:39 07:39 WBC 10.8 H (4.0-10.2) K/uL RBC 3.77 L (4.33-5.41) M/uL Hgb 12.4 L (13.1-16.8) g/dL Hct 39.0 (39.0-49.0) % MCV 103.4 H (84.0-98.0) fL MCH 32.9 (28.2-33.3) pg MCHC 31.8 (31.7-36.0) g/dL RDW 16.2 H (11.2-14.1) % Plt Count 169 (150-350) K/uL Neut % (Auto) 93.1 H (45.0-80.0) % Lymph % (Auto) 2.5 L (10.0-50.0) % [place] % (Auto) 4.3 (2.0-14.0) % Eos % (Auto) 0.0 (0.0-5.0) % Baso % (Auto) 0.1 (0.0-2.0) % Neut # (Auto) 10.06 H (1.40-7.00) K/uL Lymph # (Auto) 0.27 L (0.50-3.50) K/uL [place] # (Auto) 0.47 (0.00-1.00) K/uL Eos # (Auto) 0.00 (0.00-0.50) K/uL Baso # (Auto) 0.01 (0.00-0.20) K/uL Sodium 138 (136-145) mmol/L Potassium 4.6 (3.5-5.1) mmol/L Chloride 96 L (98-107) mmol/L Carbon Dioxide 35.2 H (21.0-32.0) mmol/L BUN 52 H (7-18) mg/dL Creatinine 1.05 (0.51-1.17) mg/dL Est Cr Clr Drug Dosing 37.79 mL/min Estimated GFR (MDRD) > 60 mL/min Glucose 168 H (70-99) mg/dL Lactic Acid (0.4-2.0) mmol/L Calcium 9.8 (8.5-10.1) mg/dL Troponin I 0.065 H* (0.000-0.056) ng/mL Procalcitonin 0.10 H ng/mL 01/01/21 Range/Units 07:39 WBC (4.0-10.2) K/uL RBC (4.33-5.41) M/uL Hgb (13.1-16.8) g/dL Hct (39.0-49.0) % MCV (84.0-98.0) fL MCH (28.2-33.3) pg MCHC (31.7-36.0) g/dL RDW (11.2-14.1) % Plt Count (150-350) K/uL Neut % (Auto) (45.0-80.0) % Lymph % (Auto) (10.0-50.0) % [place] % (Auto) (2.0-14.0) % Eos % (Auto) (0.0-5.0) % Baso % (Auto) (0.0-2.0) % Neut # (Auto) (1.40-7.00) K/uL Lymph # (Auto) (0.50-3.50) K/uL [place] # (Auto) (0.00-1.00) K/uL Eos # (Auto) (0.00-0.50) K/uL Baso # (Auto) (0.00-0.20) K/uL Sodium (136-145) mmol/L Potassium (3.5-5.1) mmol/L Chloride (98-107) mmol/L Carbon Dioxide (21.0-32.0) mmol/L BUN (7-18) mg/dL Creatinine (0.51-1.17) mg/dL Est Cr Clr Drug Dosing mL/min Estimated GFR (MDRD) mL/min Glucose (70-99) mg/dL Lactic Acid 4.1 H (0.4-2.0) mmol/L Calcium (8.5-10.1) mg/dL Troponin I (0.000-0.056) ng/mL Procalcitonin ng/mL Result Diagrams: 01/01/21 07:39 01/01/21 07:39 Sepsis Event Note - Evaluation Sepsis Screening Result: No Definite Risk - Focused Exam Vital Signs: Vital Signs Temp Pulse Resp BP Pulse Ox 01/01/21 08:00 97.7 F 75 22 H 142/83 H 99 - Problem List & Annotations (1) COPD (chronic obstructive pulmonary disease) SNOMED Code(s): 85954156 Code(s): J44.9 - CHRONIC OBSTRUCTIVE PULMONARY DISEASE, UNSPECIFIED Status: Chronic Priority: Medium Current Visit: No Qualifiers: COPD type: unspecified COPD Qualified Code(s): J44.9 - Chronic obstructive pulmonary disease, unspecified Annotation/Comment:: He is really doing well and pretty much back to baseline according to the patient as well as one of the [facility] as well. We have been able to decrease his oxygen. We will discontinue the Solu-Medrol and place him on oral prednisone 30 mg p.o. twice daily. Continue the antibiotics Rocephin and azithromycin. Continue with his nebulizer treatments he is really improved much from yesterday. Plan will be to discharge him tomorrow. His procalcitonin was minimally elevated at 0.1 so we will continue the antibiotic therapy (2) Atrial fibrillation SNOMED Code(s): 60770422 Code(s): I48.91 - UNSPECIFIED ATRIAL FIBRILLATION Status: Chronic Priority: High Current Visit: No Qualifiers: Atrial fibrillation type: longstanding persistent Qualified Code(s): I48.11 - Longstanding persistent atrial fibrillation Annotation/Comment:: In a fib, on Eliquis. Rate controlled. No CP. (3) CHF (congestive heart failure) SNOMED Code(s): 12953897 Code(s): I50.9 - HEART FAILURE, UNSPECIFIED Status: Acute Priority: High Current Visit: Yes Qualifiers: Heart failure type: unspecified Heart failure chronicity: acute on chronic Qualified Code(s): I50.9 - Heart failure, unspecified Annotation/Comment:: He continues to have improvement of his peripheral pedal edema. He has some very very faint crackles in his left lower base. But he has no chest pain or anginal type symptoms. We will continue his therapies for this as well. (4) Elevated troponin I level SNOMED Code(s): 060888165 Code(s): R77.8 - OTHER SPECIFIED ABNORMALITIES OF PLASMA PROTEINS Status: Acute Current Visit: Yes Annotation/Comment:: He has had multiple repeats of his troponin which are staying about 0.06-0.07 no chest pain. (5) Tinea pedis SNOMED Code(s): 5683311 Code(s): B35.3 - TINEA PEDIS Status: Acute Current Visit: Yes Qualifiers: Laterality: right Qualified Code(s): B35.3 - Tinea pedis Annotation/Comment:: Chlortrimazole with improvement - Problem List Review Problem List Initiated/Reviewed/Updated: Yes - My Orders Last 24 Hours: My Active Orders 12/31/20 14:30 Clotrimazole [Lotrimin AF 1% Crm] 1 gm TOP Q12HR 01/01/21 11:00 predniSONE 30 mg PO BID 01/02/21 05:11 BASIC METABOLIC PANEL,BMP [CHEM] AM CBC WITH AUTO DIFF [HEME] AM LACTIC ACID [CHEM] AM TROPONIN I [CHEM] AM - Assessment Assessment:: As above - Plan Plan:: As above. We will continue with inpatient management at this time to ensure that the changing of IV Solu-Medrol to oral dosing prednisone he will tolerate as he is a very unstable patient at baseline. Plan will be to discharge him home tomorrow. VTE: He is on Eliquis for his atrial fibrillation. Sepsis no signs of sepsis at this time. Rocephin and azithromycin for COPD exacerbation The patient is doing quite a bit better than he had yesterday and he feels like he is back to baseline. His COPD exacerbation is turning around quite nicely. He is about back to baseline. We will plan to discharge him home tomorrow.
[2021-01-01] MEDS: Azithromycin 250 MG Tab PO SCH (19:44)
[2021-01-01] MEDS: Simvastatin 20 MG Tab PO SCH (19:45)
[2021-01-02] MEDS: Sodium Chloride 0.9% 10 ML Syringe FLUSH PRN (00:51)
[2021-01-02] MEDS: cefTRIAXone 1 GM Vial IVPUSH SCH (00:51)
[2021-01-02 08:02] LABS: CHLORIDE,CL 99 mmol/L (98-107); SODIUM,NA 140 mmol/L (136-145)
[2021-01-02] MEDS: Tiotropium Inhaler 18 MCG Inhalation Powder Cap Kit of 5 INH SCH (08:13)
[2021-01-02] MEDS: Arformoterol 15 MCG/2 ML Neb Soln NEB SCH (08:13)
[2021-01-02] MEDS: Budesonide 0.5 MG/2 ML Neb Susp NEB SCH (08:14)
[2021-01-02] MEDS: Clotrimazole 1% Crm 30 GM Tube TOP SCH (08:14)
[2021-01-02] MEDS: Potassium Chloride 20 MEQ Tab.ER PO SCH (08:15)
[2021-01-02] MEDS: predniSONE 20 MG Tab PO SCH (08:15)
[2021-01-02] MEDS: Omeprazole 20 MG Cap.CR PO SCH (08:15)
[2021-01-02] MEDS: Aspirin 81 MG Tab.Chew PO SCH (08:15)
[2021-01-02] MEDS: Apixaban 2.5 MG Tab PO SCH (08:15)
--- NOTE | 2021-01-02 10:44 | PCM.DCSUM1 ---
Discharge Summary - Discharge Data Discharge Date: 01/02/21 Discharge Disposition: DC/Tfer to SNF 03 Condition: Fair - Referral to Home Health Primary Care Physician: SUYAPA Aleman - Discharge Diagnosis/Problem(s) (1) COPD (chronic obstructive pulmonary disease) SNOMED Code(s): 66173429 ICD Code: J44.9 - CHRONIC OBSTRUCTIVE PULMONARY DISEASE, UNSPECIFIED Status: Chronic Priority: Medium Current Visit: No Problem Details: He is really doing well and he feels that he is actually better than his baseline for his COPD. We will discharge him back to the senior care today. We will continue him on prednisone 30 mg p.o. twice daily with a taper over 9 days. As he has quite severe disease and I feel that 5 days as not him enough. Continue him on doxycycline 100 mg p.o. twice daily for total of 7 days. I would prefer him to receive nebulizer treatments over his MDI inhalers with his severe COPD I do not feel that MDIs are appropriate enough to control his severe disease. He was Covid negative in the hospital. Therefore I will place him on budesonide 0.5 mg twice daily and a formoterol 15 mcg twice daily. Qualifiers: COPD type: unspecified COPD Qualified Code(s): J44.9 - Chronic obstructive pulmonary disease, unspecified (2) Atrial fibrillation SNOMED Code(s): 55669947 ICD Code: I48.91 - UNSPECIFIED ATRIAL FIBRILLATION Status: Chronic Priority: High Current Visit: No Problem Details: In a fib, on Eliquis. Rate controlled. No CP. Continue therapy of the Eliquis as well as his rate controllers in the senior care. Qualifiers: Atrial fibrillation type: longstanding persistent Qualified Code(s): I48.11 - Longstanding persistent atrial fibrillation (3) CHF (congestive heart failure) SNOMED Code(s): 14398955 ICD Code: I50.9 - HEART FAILURE, UNSPECIFIED Status: Acute Priority: High Current Visit: Yes Problem Details: He continues to have improvement of his peripheral pedal edema. He has some very very faint crackles in his left lower base. But he has no chest pain or anginal type symptoms. We will continue his therapies for this as well. No change or increase in his torsemide at the senior care. With a one-time increased dose of Lasix 40 mg he had good diuresis. And his feet are much improved since arrival. Blood pressure is well controlled. Qualifiers: Heart failure type: unspecified Heart failure chronicity: acute on chronic Qualified Code(s): I50.9 - Heart failure, unspecified (4) Elevated troponin I level SNOMED Code(s): 019935113 ICD Code: R77.8 - OTHER SPECIFIED ABNORMALITIES OF PLASMA PROTEINS Status: Acute Current Visit: Yes Problem Details: His troponin appears to be chronically elevated. He has no chest pain pressure or anginal type symptoms. He does not want any aggressive management cardiology consult or intervention. This could be multifactorial in relation to not only his congestive heart failure as well as his severe COPD increasing the strain on his heart. We will continue him on a daily aspirin at the senior care. (5) Tinea pedis SNOMED Code(s): 2243709 ICD Code: B35.3 - TINEA PEDIS Status: Acute Current Visit: Yes Problem Details: Chlortrimazole continued at the senior care for 2 days post res olution. Qualifiers: Laterality: right Qualified Code(s): B35.3 - Tinea pedis - Patient Summary/Data Hospital Course: This patient was admitted into the hospital initially 3 days ago with concerns of increasing shortness of breath and question exacerbation of CHF and elevated troponin. 1 day prior to presenting to the emergency department he had had a pacemaker battery change at the NH in [place]. He had had increased shortness of breath at the senior care at rest over the past couple of days. His troponin was minimally elevated initially in the emergency department and he did not want any cardiac evaluation transfer or aggressive measures. He was admitted into the hospital for serial troponins and following for shortness of breath. He was given some Lasix in the emergency department and diuresed well. During his first night of observation in the middle the night he developed a COPD exacerbation where he had quite labored breathing. He was then started on aggressive nebulizers Solu-Medrol 125 every 8 hours and Rocephin and azithromycin. Over the next couple of days he improved quite markedly. His laboratory evaluation was rather unremarkable with good kidney function. His pedal edema was much improved of his lower extremities from baseline. He received no more diuretics than the initial dose in the emergency department and his chronic torsemide from the senior care. He had a minimally elevated procalcitonin for which she has been treated with azithromycin and ceftriaxone. His lactic acid was never elevated. He is a DNR/DNI and wants no aggressive measures and pretty much comfort measures. He was also noted that he had some tinea pedis to his right foot which Chlortrimazole has been applied and no secondary infection identified. After his third day in the hospital he feels that he has actually better than his baseline. At rest he has no shortness of breath or complaints of chest pain. He was also started on daily aspirin due to his continued elevated troponin throughout his hospital stay but he has never had any angina or chest pain and he refuses any cardiology consult or transfer. Most likely his elevated troponin could be multifactorial in the presence of his severe congestive heart failure chronic as well as a COPD exacerbation. But he has been stable at about 0.06-0.07 throughout his hospitalization. We will discharge him back to the senior care today with recommendations of discontinuing the MDI for his controllers of his COPD as I feel that nebulizers have a better control for this chronic severe COPD. I do understand that this was most likely change from nebulizers to inhalers due to the present Covid situation although this patient was Covid negative while he was in the hospital. We will start him on budesonide twice daily as well as a formoterol twice daily. Prednisone long taper with his severe COPD I feel that he needs more than just a 5-day burst dose steroids. We will continue to cover him with doxycycline in the senior care. The patient and his family were explained discharge directions they were comfortable with this plan and their questions were answered - Patient Instructions Diet: Heart Healthy Diet, Low Sodium Fluid Restriction: 1500 mL Other/Special Instructions: Try to keep his feet elevated is much as possible. Chlortrimazole application to the right foot for tinea pedis twice daily for 2 days post resolution. Aspirin 81 mg a day start. Doxycycline 1 tablet p.o. twice daily for 7 days. Start. I would prefer for a patient in the severe COPD state to receive nebulizers versus MDI inhalers as they have much better inhalation of this medication and timing. Start budesonide 0.5 mg nebulizer twice daily. A formoterol start 50 mcg twice daily. Continue with all previous therapies as well. Consider hospice consultation for this patient. Prednisone 30 mg p.o. twice daily for 3 days, 40 mg p.o. daily for 3 days, 20 mg p.o. for 3 days, 10 mg p.o. for 3 days. Recheck with PCP in 3 days. - Discharge Plan *PRESCRIPTION DRUG MONITORING PROGRAM REVIEWED*: Not Applicable *COPY OF PRESCRIPTION DRUG MONITORING REPORT IN PATIENT SOPHIA: Not Applicable Prescriptions/Med Rec: Aspirin 81 mg PO WITHBREAKFAST #30 tab.chew Arformoterol [Brovana] 15 mcg NEB BID #60 neb Doxycycline Monohydrate 100 mg PO BID #14 capsule Clotrimazole [Lotrimin AF 1% Crm] 1 gm TOP Q12HR #1 tube predniSONE 30 mg PO BID #20 tablet Budesonide [Pulmicort] 0.5 mg NEB BID #60 neb Home Medications: Home Meds Albuterol Sulfate 2.5 mg INH QID PRN 09/28/19 [History] Apixaban [Eliquis] 2.5 mg PO BID@09/28/19 [History] Levothyroxine 50 mcg PO DAILY@05009/28/19 [History] Losartan Potassium 50 mg PO DAILY@05009/28/19 [History] Omeprazole Magnesium [Prilosec Otc] 20 mg PO DAILY@05009/28/19 [History] Potassium Chloride 20 meq PO DAILY@05009/28/19 [History] Simvastatin 40 mg PO BEDTIME 09/28/19 [History] Acetaminophen [Tylenol] 650 mg PO Q6H PRN 11/30/19 [History] Fluoride (Sodium) [Prevident] 1 applic DT DAILY PRN 11/30/19 [History] Menthol [Cough Drops] 1 lozenge PO Q4HR PRN 11/30/19 [History] Tiotropium [Spiriva HandiHaler] 18 mcg INH DAILY@0500 11/30/19 [History] Acetaminophen [Tylenol Arthritis] 650 mg PO BID@09/09/20 [History] Methyl Salicylate/Menthol [Muscle Rub] 1 applic TOP QID PRN 09/09/20 [History] Sennosides/Docusate Sodium [Senna Plus 8.6-50 mg Tablet] 1 tab PO BID@05,20 09/09/20 [History] Torsemide 30 mg PO DAILY@1200 09/09/20 [History] guaiFENesin [Guaifenesin] 200 mg PO BID@05,20 09/09/20 [History] Lidocaine 5% [Lidoderm 5%] 1 patch TOP BID PRN 11/24/20 [History] Melatonin 6 mg PO BEDTIME PRN 11/24/20 [History] polyethylene glycoL 3350 [Miralax] 17 gram PO DAILY PRN 11/24/20 [History] Ascorbic Acid/Multivit-Min [Emergen-C 1,000 mg Packet] 1,000 mg PO DAILY@1200 12/30/20 [History] Torsemide 80 mg PO DAILY 12/30/20 [History] Albuterol/Ipratropium [DuoNeb 3.0-0.5 MG/3 ML] 3 ml NEB Q6HRRT PRN neb 01/02/21 [Rx] Apixaban [Eliquis] 2.5 mg PO DAILY tablet 01/02/21 [Rx] Arformoterol [Brovana] 15 mcg NEB BID #60 neb 01/02/21 [Rx] Aspirin 81 mg PO WITHBREAKFAST #30 tab.chew 01/02/21 [Rx] Budesonide [Pulmicort] 0.5 mg NEB BID #60 neb 01/02/21 [Rx] Clotrimazole [Lotrimin AF 1% Crm] 1 gm TOP Q12HR #1 tube 01/02/21 [Rx] Docusate Sodium/Sennosides [Senna Plus] 1 tab PO BID tablet 01/02/21 [Rx] Doxycycline Monohydrate 100 mg PO BID #14 capsule 01/02/21 [Rx] predniSONE 30 mg PO BID #20 tablet 01/02/21 [Rx] Forms: ED Department Discharge Referrals: Mireya Love PA [Primary Care Provider] - - Discharge Summary/Plan Comment DC Time >30 min.: Yes - General Info Date of Service: 01/02/21 Admission Dx/Problem (Free Text: SOB Elevated troponin CHF COPD exacer Subjective Update: This is inpatient day 2 total hospitalization day 3 for patient who came in in the emergency department with complaints of shortness of breath. He had a COPD exacerbation while he was here. He really slept quite well last night. He relates that he feels his breathing is actually better than his baseline. He does get quite short of breath with physical exertion such as getting up to the chair but this is typical for him although he does not feel any more short of breath and actually less short of breath than he typically would at the senior care. He has no pain weakness dizziness lightheadedness. He offers up no other complaints. He relates that the chronic tenderness to his feet from the swelling and edema is much improved over the past couple of days as well. Functional Status: Reports: Pain Controlled, Tolerating Diet, Urinating. Denies: New Symptoms - Review of Systems General: Reports: Weakness (At baseline) HEENT: Reports: No Symptoms Pulmonary: Reports: Shortness of Breath (At baseline) Cardiovascular: Reports: No Symptoms Gastrointestinal: Reports: No Symptoms Genitourinary: Reports: No Symptoms Musculoskeletal: Reports: No Symptoms Skin: Reports: No Symptoms Neurological: Reports: No Symptoms Psychiatric: Reports: No Symptoms - Patient Data Vitals - Most Recent: Last Vital Signs Temp 97.5 F 01/02/21 00:00 Pulse 82 01/02/21 00:00 Resp 14 01/02/21 00:00 BP 151/86 H 01/02/21 00:00 Pulse Ox 95 01/02/21 00:00 Weight - Most Recent: 124 lb 12.8 oz I&O - Last 24 hours: Intake & Output 01/01/21 01/02/21 01/02/21 22:59 06:59 14:59 Intake Total 200 Output Total 900 150 Balance -700 -150 Lab Results - Last 24 hrs: Laboratory Results - last 24 hr 01/02/21 01/02/21 01/02/21 Range/Units 07:26 07:26 07:26 WBC 11.1 H (4.0-10.2) K/uL RBC 3.54 L (4.33-5.41) M/uL Hgb 11.8 L (13.1-16.8) g/dL Hct 36.4 L (39.0-49.0) % MCV 102.8 H (84.0-98.0) fL MCH 33.3 (28.2-33.3) pg MCHC 32.4 (31.7-36.0) g/dL RDW 16.3 H (11.2-14.1) % Plt Count 157 (150-350) K/uL Neut % (Auto) 90.0 H (45.0-80.0) % Lymph % (Auto) 2.8 L (10.0-50.0) % Howard % (Auto) 7.1 (2.0-14.0) % Eos % (Auto) 0.0 (0.0-5.0) % Baso % (Auto) 0.1 (0.0-2.0) % Neut # (Auto) 9.96 H (1.40-7.00) K/uL Lymph # (Auto) 0.31 L (0.50-3.50) K/uL Howard # (Auto) 0.79 (0.00-1.00) K/uL Eos # (Auto) 0.00 (0.00-0.50) K/uL Baso # (Auto) 0.01 (0.00-0.20) K/uL Sodium 140 (136-145) mmol/L Potassium 4.1 (3.5-5.1) mmol/L Chloride 99 (98-107) mmol/L Carbon Dioxide 35.9 H (21.0-32.0) mmol/L BUN 57 H (7-18) mg/dL Creatinine 0.99 (0.51-1.17) mg/dL Est Cr Clr Drug Dosing 40.50 mL/min Estimated GFR (MDRD) > 60 mL/min Glucose 127 H (70-99) mg/dL Lactic Acid 1.7 (0.4-2.0) mmol/L Calcium 9.7 (8.5-10.1) mg/dL Troponin I 0.098 H* (0.000-0.056) ng/mL Med Orders - Current: Current Medications Albuterol (Albuterol 0.083% 2.5 Mg/3 Ml Neb Soln) 2.5 mg INH QID PRN PRN Reason: Shortness of Breath Last Admin: 12/31/20 00:40 Dose: 2.5 mg Documented by: Albuterol/Ipratropium (Albuterol/Ipratropium 3.0-0.5 Mg/3 Ml Neb Soln) 3 ml NEB Q6HRRT PRN PRN Reason: Shortness of Breath Last Admin: 12/31/20 01:42 Dose: 3 ml Documented by: Apixaban (Apixaban 2.5 Mg Tab) 2.5 mg PO DAILY JACINTO Last Admin: 01/02/21 08:15 Dose: 2.5 mg Documented by: Arformoterol Tartrate (Arformoterol 15 Mcg/2 Ml Neb Soln) 15 mcg NEB BID [facility] Last Admin: 01/02/21 08:13 Dose: 15 mcg Documented by: Aspirin (Aspirin 81 Mg Tab.Chew) 81 mg PO WITHBREAKFAST [facility] Last Admin: 01/02/21 08:15 Dose: 81 mg Documented by: Azithromycin (Azithromycin 250 Mg Tab) 500 mg PO BEDTIME [facility] Last Admin: 01/01/21 19:44 Dose: 500 mg Documented by: Budesonide (Budesonide 0.5 Mg/2 Ml Neb Susp) 0.5 mg NEB BID [facility] Last Admin: 01/02/21 08:14 Dose: 0.5 mg Documented by: Ceftriaxone Sodium (Ceftriaxone 1 Gm Vial) 1 gm IVPUSH Q24H [facility] Last Admin: 01/02/21 00:51 Dose: 1 gm Documented by: Clotrimazole (Clotrimazole 1% Crm 30 Gm Tube) 1 gm TOP Q12HR [facility] Last Admin: 01/02/21 08:14 Dose: 1 applic Documented by: Melatonin (Melatonin 3 Mg Tab) 6 mg PO BEDTIME PRN PRN Reason: Insomnia Omeprazole (Omeprazole 20 Mg Cap.Cr) 20 mg PO DAILY [facility] Last Admin: 01/02/21 08:15 Dose: 20 mg Documented by: Polyethylene Glycol (Polyethylene Glycol 3350 Powder 17 Gm Packet) 17 gm PO DAILY PRN PRN Reason: Constipation Potassium Chloride (Potassium Chloride 20 Meq Tab.Er) 20 meq PO DAILY [facility] Last Admin: 01/02/21 08:15 Dose: 20 meq Documented by: Prednisone (Prednisone 20 Mg Tab) 30 mg PO BID [facility] Last Admin: 01/02/21 08:15 Dose: 30 mg Documented by: Senna/Docusate Sodium (Docusate Sodium/Sennosides 50-8.6 Mg Tab) 1 tab PO BID [facility] Last Admin: 01/02/21 08:15 Dose: 1 tab Documented by: Simvastatin (Simvastatin 20 Mg Tab) 40 mg PO BEDTIME [facility] Last Admin: 01/01/21 19:45 Dose: 40 mg Documented by: Sodium Chloride (Sodium Chloride 0.9% 10 Ml Syringe) 10 ml FLUSH Q8HR PRN PRN Reason: IV Use Last Admin: 01/02/21 00:51 Dose: 10 ml Documented by: Tiotropium [place] (Tiotropium Inhaler 18 Mcg Inhalation Powder Cap Kit Of 5) 18 mcg INH DAILY [facility] Last Admin: 01/02/21 08:13 Dose: 18 mcg Documented by: Torsemide (Torsemide 10 Mg Tab) 80 mg PO DAILY [facility] Last Admin: 01/02/21 08:13 Dose: 80 mg Documented by: Torsemide (Torsemide 10 Mg Tab) 30 mg PO DAILY@1200 [facility] Last Admin: 01/01/21 11:42 Dose: 30 mg Documented by: Discontinued Medications Arformoterol Tartrate (Arformoterol 15 Mcg/2 Ml Neb Soln) 15 mcg NEB BIDRT STA Stop: 12/31/20 01:21 Last Admin: 12/31/20 01:44 Dose: 15 mcg Documented by: Aspirin (Aspirin 81 Mg Tab.Chew) 324 mg PO ONETIME ONE Stop: 12/30/20 17:34 Last Admin: 12/30/20 17:43 Dose: 324 mg Documented by: Azithromycin (Azithromycin 250 Mg Tab) 500 mg PO DAILY [facility] Azithromycin (Azithromycin 250 Mg Tab) 500 mg PO BEDTIME [facility] Budesonide (Budesonide 0.5 Mg/2 Ml Neb Susp) 0.5 mg NEB BIDRT STA Stop: 12/31/20 01:01 Last Admin: 12/31/20 01:44 Dose: 0.5 mg Documented by: Clotrimazole (Clotrimazole 1% Crm 15 Gm Tube) 1 gm TOP BID [facility] Last Admin: 12/31/20 16:44 Dose: Not Given Documented by: Furosemide (Furosemide 40 Mg/4 Ml Vial) 40 mg IVPUSH NOW ONE Stop: 12/30/20 17:53 Last Admin: 12/30/20 18:21 Dose: 40 mg Documented by: Methylprednisolone Sodium Succinate (Methylprednisolone Sodium Succinate 125 Mg/2 Ml Sdv) 125 mg IVPUSH Q8H [facility] Last Admin: 01/01/21 08:23 Dose: 125 mg Documented by: Omeprazole (Omeprazole 20 Mg Cap.Cr) 20 mg PO DAILY@0500 [facility] Last Admin: 12/31/20 05:33 Dose: Not Given Documented by: Potassium Chloride (Potassium Chloride 20 Meq Tab.Er) 20 meq PO DAILY@0500 [facility] Last Admin: 12/31/20 05:33 Dose: Not Given Documented by: Senna/Docusate Sodium (Docusate Sodium/Sennosides 50-8.6 Mg Tab) 1 tab PO BID@05,20 [facility] Last Admin: 12/31/20 05:33 Dose: Not Given Documented by: Tiotropium [place] (Tiotropium Inhaler 18 Mcg Inhalation Powder Cap Kit Of 5) 18 mcg INH DAILY@0500 [facility] Last Admin: 12/31/20 05:33 Dose: Not Given Documented by: Comments:: He is sitting up in the chair eating breakfast when I see him. He is able to speak in full sentences he appears in no acute distress. - Exam Quality Assessment: Reports: Supplemental Oxygen (He is down to 1.5 L.) General: Reports: Alert, Oriented HEENT: Reports: Pupils Equal, Pupils Reactive Neck: Reports: Supple Lungs: Reports: Decreased Breath Sounds (Much improved since yesterday. No increased work of breathing), Crackles (Fine bibasilar crackles). Denies: Rhonchi, Wheezing Cardiovascular: Reports: Irregular Rhythm GI/Abdominal Exam: Normal Bowel Sounds, Soft, Non-Tender (Male) Exam: Deferred Rectal (Males) Exam: Deferred Back Exam: Reports: Normal Inspection Extremities: Pedal Edema (His pedal edema continues to improve bilaterally equal. No tenderness to his lower extremities.). No: Normal Inspection (Tinea pedis on the right foot unchanged without secondary infection) Skin: Reports: Warm, Dry, Intact Wound/Incisions: Reports: Healing Well Neurological: Reports: No New Focal Deficit Psy/Mental Status: Reports: Alert, Normal Affect, Normal Mood
[2021-01-02] MEDS ORDERED: prednisoLONE Syrup 5 MG/5 ML ML 120 ML Bottle PO ONE (11:12)
[2021-01-02] MEDS ORDERED: predniSONE 20 MG Tab PO STA (11:25)
== END 2021-01-02 13:42 | DRG 191 ==
LOC: LL.ED 16:29 → LL.MS 18:00 → OBSVTOIN 12-31 01:30
PROVIDERS: ADMIT Nurse Practitioner Family; ATTEND Nurse Practitioner Family
DX: J44.1 Chronic obstructive pulmonary disease with (acute) exacerbation (principal); I48.11 Longstanding persistent atrial fibrillation; I42.9 Cardiomyopathy, unspecified; I13.0 Hypertensive heart and chronic kidney disease with heart failure and stage 1 through stage 4 chronic kidney disease, or unspecified chronic kidney disease; J44.9 Chronic obstructive pulmonary disease, unspecified; I50.9 Heart failure, unspecified; R77.8 Other specified abnormalities of plasma proteins; B35.3 Tinea pedis; Z66 Do not resuscitate; H54.7 Unspecified visual loss; I25.10 Atherosclerotic heart disease of native coronary artery without angina pectoris; E78.00 Pure hypercholesterolemia, unspecified; K59.09 Other constipation; N18.9 Chronic kidney disease, unspecified; N40.0 Benign prostatic hyperplasia without lower urinary tract symptoms; D63.1 Anemia in chronic kidney disease; E03.9 Hypothyroidism, unspecified; M19.90 Unspecified osteoarthritis, unspecified site; K21.9 Gastro-esophageal reflux disease without esophagitis; R64 Cachexia; H91.93 Unspecified hearing loss, bilateral; J84.10 Pulmonary fibrosis, unspecified; Z79.899 Other long term (current) drug therapy; I25.2 Old myocardial infarction; Z95.0 Presence of cardiac pacemaker; Z98.49 Cataract extraction status, unspecified eye; Z87.01 Personal history of pneumonia (recurrent); Z79.01 Long term (current) use of anticoagulants; Z79.890 Hormone replacement therapy; Z99.81 Dependence on supplemental oxygen; Z79.51 Long term (current) use of inhaled steroids
CPT/HCPCS: 36415; 71045; 80048; 80053; 82803; 83605; 83880; 84145; 84484; 85025; 93005; 94640; 96374; 96375; 99285-25; A9270-GY; G0378; J0696; J1940; J2930; J7512; J7613-GY; J7620-GY